=== PATIENT | female | born 1955 | race Two or more races ===

== ENCOUNTER 2020-03-21 09:32 | Outpatient (REF) | payer OTHER, SELFPAY ==
--- NOTE | ~2020-03-21 | XR_ITS ---
EXAMINATION: XR CHEST CLINICAL INFORMATION: Cough COMPARISON: Chest radiographs 04/22/2018, 3-D mammography 10/11/2019 TECHNIQUE: 2 views of the chest were obtained. FINDINGS: The lungs are clear. There is no airspace consolidation or groundglass opacity or effusion. Heart is normal in size. The vascularity is normal. No visible acute bony abnormality. There are surgical clips seen in the breasts similar to the recent mammography. XR/XR chest 2V IMPRESSION: Unremarkable examination.
== END 2020-03-21 09:33 | disposition home or self-care (01) ==
LOC: HO.XRAY 09:32
PROVIDERS: PCP Internal Medicine; Visit Provider Internal Medicine
DX: R05 Cough (principal)
CPT/HCPCS: 71046

== ENCOUNTER 2020-07-30 08:59 | Outpatient (REF) | payer OTHER, SELFPAY ==
[2020-07-30 10:21] LABS: MANUAL DIFF FLAG NO
[2020-07-30 10:37] LABS: Estimated Average Glucose 131 mg/dL; Hemoglobin A1c % 6.2 %
[2020-07-30 10:38] LABS: Cholesterol 206 mg/dL; HDL Cholesterol 40 mg/dL; LDL Cholesterol Calculated 146 mg/dl; Triglycerides 104 mg/dL
[2020-07-30 10:39] LABS: Basophils Absolute Auto 0.1 X10*3/uL (0.0-0.2); Basophils Percent Auto 0.7 % (0-2); Eosinophils Absolute Auto 0.3 X10*3/uL (0.0-0.4); Hematocrit 41.2 % (37-47); Hemoglobin 12.9 g/dl (12.0-16.0); Imm Gran Abs Auto 0.01 X10*3/uL (0.00-0.03); Imm Gran Pct Auto 0.1 % (0.0-0.4); Lymphocytes Absolute Auto 2.4 X10*3/uL (1.2-4.9); Lymphocytes Percent Auto 34.8 % (20-40); Mean Corpuscular HGB Conc 31.3 g/dl (31.0-35.0); Mean Corpuscular Hemoglobin 26.4 pg (27.0-33.0); Mean Corpuscular Volume 84.3 fL (80-98); Mean Platelet Volume 12.9 fL (9.4-12.3); Monocytes Absolute Auto 0.6 X10*3/uL (0.1-1.2); Monocytes Percent Auto 8.8 % (2-11); Neutrophils Absolute Auto 3.5 X10*3/uL (2.0-8.3); Neutrophils Percent Auto 51.6 % (45-73); Platelet Count 200 X10*3/uL (160-400); Red Blood Count 4.89 X10*6/uL (4.20-5.50); Red Cell Distribution Width 14.4 % (11.0-16.0); White Blood Count 6.8 X10*3/uL (4.8-10.8)
[2020-07-30 10:44] LABS: Alanine Aminotransferase 13 U/L (0-31); Albumin Level 4.2 g/dL (3.5-5.0); Alkaline Phosphatase 74 U/L (39-117); Anion Gap 11 (12-20); Aspartate Amino Transferase 22 U/L (5-31); Bilirubin Total 0.4 mg/dL (0.0-1.0); Blood Urea Nitrogen 12 mg/dL (9-16); Calcium 9.5 mg/dL (8.4-10.2); Carbon Dioxide 28 mmol/L (22-29); Chloride 107 mmol/L (96-108); Estimated Glomerular Filt Rate > 60; Glucose Random 103 mg/dL (60-115); Potassium 4.7 mmol/L (3.3-5.1); Sodium 141 mmol/L (135-145); Total Protein 7.7 g/dL (6.5-8.0)
[2020-07-30 10:59] LABS: Thyroid Stimulating Hormone 0.66 uIU/mL (0.32-4.0)
[2020-07-30 11:03] LABS: Free T4 (Free Thyroxine) 1.02 ng/dL (0.71-1.85)
[2020-07-30 11:07] LABS: Vitamin D 25-OH Total 44.4 ng/mL (>30)
[2020-07-30 11:12] LABS: Glucose Urine UA NEG (NEG); Leukocyte Esterase Urine 1+ (NEG); Nitrite Urine NEG (NEG); Specific Gravity - Urine 1.025 (1.005-1.025); Urine Blood TRACE (NEG); Urine Ketones NEG (NEG); Urine Protein NEG (NEG-TRACE)
[2020-07-30 11:18] LABS: Appearance Urine HAZY; Color Urine YELLOW
[2020-07-30 11:59] LABS: Folate 11.2 ng/mL (> or = 4.0); Vitamin B12 455 pg/mL (200-900)
[2020-07-30 12:00] LABS: RBC Urine 0-2 /HPF (0); Squamous Epithelial Cell Urine TRACE /LPF
[2020-07-31 13:37] LABS: CA 27.29 16 U/mL (<38)
== END 2020-07-30 09:00 | disposition home or self-care (01) ==
LOC: HO.LAB 08:59
PROVIDERS: Absent Provider Internal Medicine Medical Oncology; PCP Internal Medicine; Visit Provider Internal Medicine
DX: C50.919 Malignant neoplasm of unspecified site of unspecified female breast (principal); E78.00 Pure hypercholesterolemia, unspecified; R73.02 Impaired glucose tolerance (oral); N39.46 Mixed incontinence; M85.852 Other specified disorders of bone density and structure, left thigh
CPT/HCPCS: 36415; 80053; 80061; 81001; 82306; 82607; 82746; 83036; 84439; 84443; 85025; 86300

== ENCOUNTER 2020-10-11 13:18 | Outpatient (REF) | payer OTHER, SELFPAY ==
--- NOTE | ~2020-10-11 | MM_ITS ---
EXAMINATION: MM SCREENING DIGITAL BREAST TOMOSYNTHESIS, BILATERAL CLINICAL INFORMATION: History bilateral lumpectomies and radiation for breast cancer. Due for yearly. COMPARISON: Mammography: 10/11/2019, 10/05/2018, 09/17/2017, 09/09/2016 TECHNIQUE: Digital breast tomosynthesis is performed in both the craniocaudal and mediolateral oblique views along with computer-aided detection (CAD). Synthesized 2D images are generated from the tomosynthesis. FINDINGS: The breasts are almost entirely fatty (ACR BI-RADS breast composition Category a). There are no significant masses, abnormal calcifications, or other abnormalities. There are post therapy changes with bilateral minor stable scarring and surgical clips medial breasts. There is no developing density. No significant changes. MM/MM tomosynthesis screening BI IMPRESSION: No mammographic evidence of malignancy. ASSESSMENT: BI-RADS 2: Benign RECOMMENDATION: Routine annual mammography screening. This patient's information was entered into a reminder system with a target due date for their next mammogram.
== END 2020-10-11 13:19 | disposition home or self-care (01) ==
LOC: HO.MAMMO 13:18
PROVIDERS: PCP Internal Medicine; Visit Provider Internal Medicine
DX: Z12.31 Encounter for screening mammogram for malignant neoplasm of breast (principal)
CPT/HCPCS: 77063; 77067

== ENCOUNTER 2020-11-19 07:41 | Outpatient (REF) | payer OTHER, SELFPAY ==
[2020-11-19 08:42] LABS: Alanine Aminotransferase 15 U/L (0-31); Albumin Level 4.2 g/dL (3.5-5.0); Alkaline Phosphatase 73 U/L (39-117); Anion Gap 13 (12-20); Aspartate Amino Transferase 22 U/L (5-31); Bilirubin Total 0.5 mg/dL (0.0-1.0); Blood Urea Nitrogen 14 mg/dL (9-16); Calcium 9.7 mg/dL (8.4-10.2); Carbon Dioxide 26 mmol/L (22-29); Chloride 107 mmol/L (96-108); Cholesterol 184 mg/dL; Estimated Glomerular Filt Rate 59; Glucose Random 106 mg/dL (60-115); HDL Cholesterol 37 mg/dL; LDL Cholesterol Calculated 126 mg/dl; Potassium 4.6 mmol/L (3.3-5.1); Sodium 141 mmol/L (135-145); Total Protein 7.6 g/dL (6.5-8.0); Triglycerides 109 mg/dL
[2020-11-19 08:44] LABS: Estimated Average Glucose 128 mg/dL; Hemoglobin A1c % 6.1 %
== END 2020-11-19 07:42 | disposition home or self-care (01) ==
LOC: HO.LAB 07:41
PROVIDERS: PCP Internal Medicine; Visit Provider Internal Medicine
DX: R73.02 Impaired glucose tolerance (oral) (principal); E78.00 Pure hypercholesterolemia, unspecified
CPT/HCPCS: 36415; 80053; 80061; 83036

== ENCOUNTER 2021-02-14 10:57 | Outpatient (REF) | payer OTHER, SELFPAY ==
[2021-02-14 11:48] LABS: Binax Internal Control QC Valid; Binax Now Covid-19 Ag Negative (Negative)
== END 2021-02-14 10:58 | disposition home or self-care (01) ==
LOC: HO.LAB 10:57
PROVIDERS: Visit Provider Internal Medicine
DX: Z20.822 Contact with and (suspected) exposure to COVID-19 (principal)
CPT/HCPCS: 36415; C9803

== ENCOUNTER 2021-05-16 16:20 | Outpatient (REF) | payer OTHER, SELFPAY ==
[2021-05-16 16:33] LABS: MANUAL DIFF FLAG NO
[2021-05-16 17:06] LABS: Basophils Absolute Auto 0.1 X10*3/uL (0.0-0.2); Basophils Percent Auto 0.7 % (0-2); Eosinophils Absolute Auto 0.3 X10*3/uL (0.0-0.4); Eosinophils Percent Auto 3.9 % (0-4); Hematocrit 40.3 % (37.0-47.0); Hemoglobin 12.7 g/dl (12.0-16.0); Imm Gran Abs Auto 0.02 X10*3/uL (0.00-0.03); Imm Gran Pct Auto 0.2 % (0.0-0.4); Lymphocytes Absolute Auto 3.1 X10*3/uL (1.2-4.9); Mean Corpuscular HGB Conc 31.5 g/dl (31.0-35.0); Mean Corpuscular Hemoglobin 26.5 pg (27.0-33.0); Mean Platelet Volume 12.1 fL (9.4-12.3); Monocytes Absolute Auto 0.6 X10*3/uL (0.1-1.2); Monocytes Percent Auto 7.2 % (2-11); Neutrophils Absolute Auto 4.4 x10*3/uL (2.0-8.3); Platelet Count 217 X10*3/uL (160-400); Red Cell Distribution Width 14.7 % (11.0-16.0); White Blood Count 8.5 X10*3/uL (4.8-10.8)
[2021-05-16 17:11] LABS: Appearance Urine CLEAR; Color Urine YELLOW; Glucose Urine UA NEG (NEG); Leukocyte Esterase Urine 2+ (NEG); Nitrite Urine NEG (NEG); Urine Blood TRACE (NEG); Urine Ketones NEG (NEG); Urine Protein NEG (NEG-TRACE)
[2021-05-16 17:20] LABS: Estimated Average Glucose 126 mg/dL
[2021-05-16 17:25] LABS: Alanine Aminotransferase 19 U/L (0-31); Albumin Level 4.3 g/dL (3.5-5.0); Alkaline Phosphatase 80 U/L (39-117); Anion Gap 12 (12-20); Aspartate Amino Transferase 25 U/L (5-31); Bilirubin Total 0.3 mg/dL (0.0-1.0); Blood Urea Nitrogen 17 mg/dL (9-16); Calcium 9.6 mg/dL (8.4-10.2); Carbon Dioxide 28 mmol/L (22-29); Chloride 105 mmol/L (96-108); Estimated Glomerular Filt Rate > 60; Glucose Random 93 mg/dL (60-115); Potassium 4.2 mmol/L (3.3-5.1); Sodium 141 mmol/L (135-145); Total Protein 7.9 g/dL (6.5-8.0)
[2021-05-16 17:50] LABS: Erythrocyte Sedimentation Rate 17 MM/HR (0-20)
[2021-05-16 18:15] LABS: Bacteria Urine 1+ /LPF; Urine Talc Crystals 4+ /LPF
[2021-05-20 10:01] LABS: CRP High Sensitivity 2.2 mg/L
== END 2021-05-16 16:21 | disposition home or self-care (01) ==
LOC: HO.LAB 16:20
PROVIDERS: PCP Internal Medicine; Visit Provider Internal Medicine
DX: R51.9 Headache, unspecified (principal)
CPT/HCPCS: 36415; 80053; 81001; 83036; 84443; 85025; 85652; 86141

== ENCOUNTER 2021-07-08 14:55 | Outpatient (REF) | payer OTHER, SELFPAY ==
[2021-07-08 15:22] LABS: IDNOW Serial# 16C4AD1C
[2021-07-08 15:23] LABS: COVID-19 Test Positive (Negative)
== END 2021-07-08 14:56 | disposition home or self-care (01) ==
LOC: HO.LAB 14:55
PROVIDERS: Visit Provider Internal Medicine
DX: Z20.822 Contact with and (suspected) exposure to COVID-19 (principal)
CPT/HCPCS: 87635; C9803

== ENCOUNTER 2021-08-29 10:13 | Outpatient (REF) | payer OTHER, SELFPAY ==
[2021-08-29 11:13] LABS: Appearance Urine CLEAR; Color Urine YELLOW; Glucose Urine UA NEG (NEG); Leukocyte Esterase Urine NEG (NEG); Nitrite Urine NEG (NEG); PH 5.5 (5.0-8.0); Specific Gravity - Urine 1.025 (1.005-1.025); UACC Culture Trigger NO; Urine Blood TRACE (NEG); Urine Ketones NEG (NEG); Urine Protein NEG (NEG-TRACE)
[2021-08-29 12:03] LABS: Hyaline Casts Urine 0-2 /LPF; RBC Urine 0 /HPF (0); WBC Urine 0-2 /HPF (0-4)
== END 2021-08-29 10:14 | disposition home or self-care (01) ==
LOC: HO.LAB 10:13
PROVIDERS: PCP Internal Medicine; Visit Provider Internal Medicine
DX: N39.0 Urinary tract infection, site not specified (principal)
CPT/HCPCS: 81001

== ENCOUNTER 2021-09-11 08:12 | Outpatient (REF) | payer OTHER, MEDICARE, SELFPAY ==
[2021-09-11 08:54] LABS: COVID-19 Test Negative (Negative)
== END 2021-09-11 08:13 | disposition home or self-care (01) ==
LOC: HO.LAB 08:12
PROVIDERS: Visit Provider Internal Medicine
DX: Z20.822 Contact with and (suspected) exposure to COVID-19 (principal)
CPT/HCPCS: 87635; C9803

== ENCOUNTER 2021-10-14 08:23 | Outpatient (REF) | payer OTHER, MEDICARE, SELFPAY ==
--- NOTE | ~2021-10-14 | MM_ITS ---
EXAMINATION: BONE DENSITOMETRY CLINICAL INDICATION: Osteoporosis. COMPARISON: Previous BD dated 10/11/2019 and baseline BD dated 07/29/2007. TECHNIQUE: Using a [employer] DXA System (software version: 13.1) manufactured by [employer], dual-energy x-ray absorptiometry was performed of the lumbar spine and left hip. The images are of good technical quality. Summary results are attached. FINDINGS: AP SPINE L1-L4: Current: BMD 0.839 g/cm2, Z-score -0.9, T-score -2.8, osteoporosis, 7.5% decrease from previous, 23.1% decrease from baseline (<5% change is not significant). Prior: BMD 0.907 g/cm2. Baseline: BMD 1.091 g/cm2. LEFT FEMUR, NECK: Current: BMD 0.734 g/cm2, Z-score -0.5, T-score -2.2, osteopenia. Prior: BMD 0.725 g/cm2. Baseline: BMD 0.898 g/cm2. LEFT FEMUR, TOTAL: Current: BMD 0.736 g/cm2, Z-score -0.7, T-score -2.2, osteopenia, 0.7% decrease from previous, 19.8% decrease from baseline (<5% change is not significant). Prior: BMD 0.741 g/cm2. Baseline: BMD 0.918 g/cm2. IDENTIFIED RISK FACTORS: Menopause, family history (parent hip fracture). HISTORY OF FRACTURE: None listed. MEDICATIONS: None listed. MM/XR DEXA axial skeleton IMPRESSION: 1. DIAGNOSIS: Osteoporosis based on the lowest T-score value of -2.8 in the lumbar spine applying World Health Organization criteria. 2. 10-YEAR FRACTURE RISK PREDICTION, FRAX: According to the guidelines, FRAX calculation should only be performed on patients in the osteopenia bone density category. Therefore, FRAX was not performed on this patient. 3. Treatment Recommendations: NOF guidelines recommend consideration for treatment in postmenopausal women and men age 50 and older presenting with the following: -A hip or vertebral (clinical or morphometric) fracture. -T-score less than or equal to -2.5 at the femoral neck or spine after appropriate evaluation to exclude secondary causes. -Low bone mass at the hip or spine and a 10-year fracture probability by FRAX of greater than or equal to 3% for hip fracture or greater than or equal to 20% for major osteoporotic fracture based on the [place] adapted WHO algorithm. 4. Other Recommendations: All treatment decisions require clinical judgment and consideration of individual patient factors, including patient preferences, comorbidities, previous drug use, risk factors not captured in the FRAX model (e.g. frailty, falls, vitamin D deficiency, increased bone turnover, interval significant decline in bone density) and possible under or overestimation of fracture risk by FRAX. Additional medical evaluation for secondary cause of low bone mineral density may be appropriate. FUTURE SCAN RECOMMENDATION: People with diagnosed cases of osteoporosis or at high risk for fracture should have regular bone mineral density tests. For patients eligible for Medicare, routine testing is allowed once every 2 years. The testing frequency can be increased to one year for patients who have rapidly progressing disease, those who are receiving or discontinuing medical therapy to restore bone mass, or have additional risk factors.
--- NOTE | ~2021-10-14 | MM_ITS ---
EXAMINATION: MM SCREENING DIGITAL BREAST TOMOSYNTHESIS, BILATERAL CLINICAL INFORMATION: Screening. Asymptomatic. Personal history bilateral lumpectomies and radiation for breast cancer. COMPARISON: Mammography: 10/28/2020, 10/29/2019, 10/05/2018 TECHNIQUE: Digital breast tomosynthesis is performed in both the craniocaudal and mediolateral oblique views along with computer-aided detection (CAD). Synthesized 2D images are generated from the tomosynthesis. Additional right MLO view is provided. FINDINGS: There are scattered areas of fibroglandular density (ACR BI-RADS breast composition Category b). Parenchymal pattern is similar to prior studies. There is bilateral postsurgical changes with surgical clips and minor scarring similar to prior exam. Small circumscribed nodule again seen anterior outer right breast. There is no interval mass or developing density or interval architectural abnormality. No abnormal calcifications. There is a dermal overlying the upper right breast. No significant changes from prior studies. MM/MM tomosynthesis screening BI IMPRESSION: -No mammographic evidence of malignancy. -Bilateral post surgical changes. ASSESSMENT: BI-RADS 2: Benign RECOMMENDATION: Routine annual mammography screening. This patient's information was entered into a reminder system with a target due date for their next mammogram.
== END 2021-10-14 08:24 | disposition home or self-care (01) ==
LOC: HO.MAMMO 08:23
PROVIDERS: PCP Internal Medicine; Visit Provider Internal Medicine
DX: Z12.31 Encounter for screening mammogram for malignant neoplasm of breast (principal); Z13.820 Encounter for screening for osteoporosis; M81.0 Age-related osteoporosis without current pathological fracture; Z78.0 Asymptomatic menopausal state
CPT/HCPCS: 77063; 77067; 77080

== ENCOUNTER 2021-10-30 12:08 | Outpatient (REF) | payer OTHER, MEDICARE, SELFPAY ==
[2021-10-30 13:31] LABS: COVID-19 Test Negative (Negative)
== END 2021-10-30 12:09 | disposition home or self-care (01) ==
LOC: HO.LAB 12:08
PROVIDERS: Visit Provider Internal Medicine
DX: Z20.822 Contact with and (suspected) exposure to COVID-19 (principal)
CPT/HCPCS: 87635; C9803

== ENCOUNTER 2021-11-25 08:15 | Outpatient (REF) | payer MEDICARE, SELFPAY ==
--- NOTE | ~2021-11-25 | XR_ITS ---
EXAMINATION: XR CHEST CLINICAL INFORMATION: Covid infection COMPARISON: Previous chest x-ray March 2020 TECHNIQUE: 2 views of the chest were obtained. FINDINGS: No significant abnormality is noted involving the heart, lungs, mediastinum, bony thorax or soft tissues. XR/XR chest 2V IMPRESSION: Unremarkable examination.
== END 2021-11-25 08:16 | disposition home or self-care (01) ==
LOC: HO.XRAY 08:15
PROVIDERS: PCP Internal Medicine; Visit Provider Internal Medicine
DX: U07.1 COVID-19 (principal)
CPT/HCPCS: 71046

== ENCOUNTER 2022-01-22 08:23 | Outpatient (REF) | payer MEDICARE, SELFPAY ==
[2022-01-22 08:39] LABS: MANUAL DIFF FLAG NO
[2022-01-22 09:18] LABS: Basophils Absolute Auto 0.1 X10*3/uL (0.0-0.2); Basophils Percent Auto 0.9 % (0-2); Eosinophils Absolute Auto 0.3 X10*3/uL (0.0-0.4); Eosinophils Percent Auto 4.8 % (0-4); Hematocrit 39.5 % (37.0-47.0); Hemoglobin 12.6 g/dl (12.0-16.0); Imm Gran Abs Auto 0.01 X10*3/uL (0.00-0.03); Imm Gran Pct Auto 0.2 % (0.0-0.4); Lymphocytes Absolute Auto 2.5 X10*3/uL (1.2-4.9); Lymphocytes Percent Auto 38.1 % (20-40); Mean Corpuscular HGB Conc 31.9 g/dl (31.0-35.0); Mean Corpuscular Hemoglobin 26.7 pg (27.0-33.0); Mean Corpuscular Volume 83.7 fL (80.0-98.0); Mean Platelet Volume 12.3 fL (9.4-12.3); Monocytes Absolute Auto 0.6 X10*3/uL (0.1-1.2); Monocytes Percent Auto 8.6 % (2-11); Neutrophils Absolute Auto 3.1 x10*3/uL (2.0-8.3); Neutrophils Percent Auto 47.4 % (45-73); Platelet Count 212 X10*3/uL (160-400); Red Blood Count 4.72 X10*6/uL (4.20-5.50); Red Cell Distribution Width 14.1 % (11.0-16.0); White Blood Count 6.6 X10*3/uL (4.8-10.8)
[2022-01-22 09:18] LABS: Appearance Urine Clear; Color Urine Yellow; Glucose Urine UA Negative (Negative); Leukocyte Esterase Urine Moderate (2+) (Negative); Nitrite Urine Negative (Negative); PH 5.5 (5.0-9.0); UMIC TRIGGER UA YES; Urine Blood Small (1+) (Negative); Urine Ketones Negative (Negative); Urine Protein Negative (Neg-Trace)
[2022-01-22 09:31] LABS: Bacteria Urine None Seen (None Seen); Hyaline Casts Urine 0-2 /LPF (0-2); RBC Urine 0-2 /HPF (0-2); Squamous Epithelial Cell Urine 0-2 /HPF (0-2); WBC Urine 21-50 /HPF (0-5)
[2022-01-22 10:13] LABS: Alanine Aminotransferase 19 U/L (0-31); Albumin Level 4.1 g/dL (3.5-5.0); Alkaline Phosphatase 75 U/L (39-117); Anion Gap 14 (12-20); Aspartate Amino Transferase 25 U/L (5-31); Bilirubin Total 0.5 mg/dL (0.0-1.0); Blood Urea Nitrogen 16 mg/dL (9-16); Calcium 9.3 mg/dL (8.4-10.2); Chloride 107 mmol/L (96-108); Cholesterol 188 mg/dL; Estimated Glomerular Filt Rate > 60; Free T4 (Free Thyroxine) 1.03 ng/dL (0.71-1.85); Glucose Random 108 mg/dL (60-115); HDL Cholesterol 42 mg/dL; LDL Cholesterol Calculated 128 mg/dl; Potassium 4.5 mmol/L (3.3-5.1); Sodium 140 mmol/L (135-145); Thyroid Stimulating Hormone 1.12 uIU/mL (0.32-4.0); Total Protein 7.3 g/dL (6.5-8.0); Triglycerides 93 mg/dL; Vitamin D 25-OH Total 42.9 ng/mL (>30)
[2022-01-22 10:20] LABS: Folate 13.3 ng/mL (> or = 4.0); Vitamin B12 362 pg/mL (200-900)
[2022-01-22 10:28] LABS: Carbon Dioxide 24 mmol/L (22-29)
== END 2022-01-22 08:24 | disposition home or self-care (01) ==
LOC: HO.LAB 08:23
PROVIDERS: PCP Internal Medicine; Visit Provider Internal Medicine
DX: K21.9 Gastro-esophageal reflux disease without esophagitis (principal); E78.00 Pure hypercholesterolemia, unspecified
CPT/HCPCS: 36415; 80053; 80061; 81001; 82306; 82607; 82746; 84439; 84443; 85025

== ENCOUNTER 2022-03-23 08:52 | Outpatient (REF) | payer MEDICARE, SELFPAY ==
[2022-03-23 16:06] LABS: Urine Cytology See Pathology rpt
== END 2022-03-23 08:53 | disposition home or self-care (01) ==
LOC: HO.LAB 08:52
PROVIDERS: PCP Internal Medicine; Visit Provider Nurse Practitioner Family
DX: N30.20 Other chronic cystitis without hematuria (principal); N95.2 Postmenopausal atrophic vaginitis; Z79.899 Other long term (current) drug therapy
CPT/HCPCS: 51798; 87086; 88112; 99202

== ENCOUNTER 2022-05-11 09:45 | Outpatient (REF) | payer MEDICARE, SELFPAY ==
--- NOTE | ~2022-05-11 | US_ITS ---
EXAMINATION: US RETROPERITONEAL COMPLETE (RENAL) CLINICAL INFORMATION: Urinary tract infection, site not specified. COMPARISON: Previous renal ultrasound January 2008 TECHNIQUE: Real-time imaging of the kidneys and bladder. FINDINGS: RIGHT KIDNEY: 10.2 x 4.1 x 4.6 cm (SAG x AP x TRV). The kidney is normal in size, contour, and echogenicity. Renal cortical thickness is normal. Small 2 mm stone in the midpole. No focal parenchymal lesions or hydronephrosis. LEFT KIDNEY: 10.7 x 4.8 x 3.5 cm (SAG x AP x TRV). The kidney is normal in size, contour, and echogenicity. Renal cortical thickness is normal. No calculi or focal parenchymal lesions. No hydronephrosis. BLADDER: Well distended and normal. Bilateral ureteral jets are demonstrated. Prevoid bladder volume is 418 mL. Postvoid bladder volume is 29.1 mL. US/US retroperitoneal comp IMPRESSION: Small right renal stone.
== END 2022-05-11 09:46 | disposition home or self-care (01) ==
LOC: HO.US 09:45
PROVIDERS: PCP Internal Medicine; Visit Provider Nurse Practitioner Family
DX: N39.0 Urinary tract infection, site not specified (principal)
CPT/HCPCS: 76770

== ENCOUNTER → 2022-05-21 08:50 | Outpatient (BNVA) | payer MEDICARE, SELFPAY | PROVIDERS: PCP Internal Medicine; Visit Provider Nurse Practitioner Family | DX: N39.0 Urinary tract infection, site not specified (principal) | CPT/HCPCS: 51798; 99212 ==

== ENCOUNTER 2022-08-24 12:20 | Outpatient (AMB) | payer MEDICARE, SELFPAY ==
[2022-08-24 12:31] VITALS: BP 108/70; PULSE 68; O2SAT 99; BMI 21.9
--- NOTE | 2022-08-24 12:31 | MHC.PC.OV ---
Vital Signs 08/24/22 12:31 Height 5 ft 2 in Weight 120 lb BMI 21.9 BP 108/70 Blood Pressure Location Lt brachial Position Sitting Pulse 68 Pulse Source Pulse Oximeter Temp Source Skin Pulse Oximetry (%) 99 Oxygen Delivery Method Room Air Intake Visit Reasons: Annual Exam Intake Note: Patient is here today for a physical. House Calls Nurse Required: No Allergies amoxicillin [AMOXICILLIN] Allergy (Intermediate, Verified 08/24/22 12:32) RASH penicillin V Allergy (Intermediate, Verified 08/24/22 12:32) rash Penicillins [PENICILLINS] Allergy (Intermediate, Verified 08/24/22 12:32) RASH Sulfa (Sulfonamide Antibiotics) [SULFA(SULFONAMIDE ANTIBIOTICS)] Allergy (Intermediate, Verified 08/24/22 12:32) RASH simvastatin [SIMVASTATIN] Allergy (Unknown, Verified 08/24/22 12:32) DIZZINESS sulfamethoxazole [From BACTRIM] Allergy (Unknown, Verified 08/24/22 12:32) RASH trimethoprim [From BACTRIM] Allergy (Unknown, Verified 08/24/22 12:32) RASH Medication List - Last Reconciled 08/24/22 by Andriy Nazario MD albuterol sulfate 90 mcg/actuation 2 puffs PO Q4H PRN Tobacco use date assessed: 08/24/22 Fall risk assessment: No Falls in past year Last assessed Fall Risk: 08/24/22 Dental Screening Dental Screen Date: 08/24/22 Did you have a dental visit in the last 12 months?: Yes Did you have a dental problem in the last 6 months where you did not have access to dental care?: No Was dental information given to patient?: Patient has dentist HPI Annual Exam HPI Details 67-year-old female with history of breast cancer asthma hypercholesterolemia generalized anxiety disorder GERD and osteoporosis last seen in November 2021. Patient is here for physical exam mammogram is due in October, bone density is up-to-date colonoscopy is up-to-date patient has followed up with urology for the recurrent UTI on female hormone cream noted on workup having a right renal calculi. 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 Father No problems noted. Sister Lymphoma Sister Dementia Sister Substance abuse Social History Housing: House Alcohol intake: never Patient Tobacco Use Status: Never used Tobacco e-Cigarette/Vaping Use: Never Used Second Hand Smoke Exposure: No service: No Current occupational status: retired Cognitive needs: No Hearing needs: No Vision needs: Yes Questionnaire PHQ-9 Over the last 2 weeks, how often have you been bothered by any of the following problems? 1. Little interest or pleasure in doing things: not at all 2. Feeling down, depressed, or hopeless: not at all 3. Trouble falling or staying asleep, or sleeping too much: not at all 4. Feeling tired or having little energy: not at all 5. Poor appetite or overeating: not at all 6. Feeling bad about yourself - or that you are a failure or have let yourself or your family down: not at all 7. Trouble concentrating on things, such as reading the newspaper or watching television: not at all 8. Moving or speaking so slowly that other people could have noticed. Or the opposite - being so fidgety or restless that you have been moving around a lot more than usual: not at all 9. Thoughts that you would be better off or of hurting yourself in some way: not at all Total score: 0 Source: Developed by Drs. Donn Storm, Génesis Edwards, Petros Woodard and colleagues, with an educational regla from [employer]. Thrive Questionnaire Date Thrive assessed: 08/20/21 AUDIT C Alcohol Use Questionnaire (AUDIT-C) 1. How often do you have a drink containing alcohol?: Never 2. How many drinks containing alcohol do you have on a typical day when you are drinking?: 1 or 2 (0) 3. How often do you have six or more drinks on one occasion?: Never Total Score: 0 EDY-7 AMB Questionnaire EDY-7 Date EDY - 7 assessed: 08/24/22 Feeling nervous, anxious, or on edge: 0 = Not at all Not being able to stop or control worryin = Not at all Worrying too much about different things: 0 = Not at all Trouble relaxin = Not at all Being so restless that it is hard to sit still: 0 = Not at all Becoming easily annoyed or irritable: 0 = Not at all Feeling afraid as if something awful might happen: 0 = Not at all Total EDY-7 score (0-4 normal; 5-9 mild; 10-14 moderate; 15-21 severe): 0 Source: Developed by Drs. Donn Storm, Génesis Edwards, Petros Woodard and colleagues, with an educational regla from [employer]. Review of Systems Const Denies poor appetite and Denies weakness Eyes Denies no additional complaints ENT Reports Normal hearing present, Denies dizziness, Denies nasal congestion, Denies tinnitus and Denies sore throat Card Denies chest pain, Denies syncope, Denies rapid heart rate and Denies dyspnea Resp Denies cough and Denies dyspnea GI Denies change in stool character, Reports constipation, Denies diarrhea, Denies nausea and Denies vomiting Denies urinary frequency, Denies difficulty voiding and Denies dysuria Neuro Reports Normal hearing present, Denies confusion, Denies dizziness, Denies syncope and Denies weakness Psych Denies confusion Physical exam (Primary Care) Vital Signs: Last Vital Signs Pulse 68 08/24/22 12:31 BP 108/70 08/24/22 12:31 Pulse Ox 99 08/24/22 12:31 Oxygen Delivery Method Room Air 08/24/22 12:31 BMI result Body Mass Index 21.9 Tobacco/Smoking Status: Tobacco use Status Tobacco use date assessed 08/24/22 08/24/22 12:33 Patient Tobacco Use Status Never used Tobacco 08/24/22 12:33 e-Cigarette/Vaping Use Never Used 08/24/22 12:33 PHQ-9: PHQ-9 Score PHQ-9: Total score 0 08/24/22 12:33 Thrive Assessment: Date of Thrive Assessment Date Thrive assessed 08/20/21 08/24/22 12:33 Const General: No confusion Orientation/consciousness: No confusion HENMT Head: Yes normocephalic Ears: external ears normal and TM's normal bilaterally Face and sinus: Yes normal facial exam Mouth: moist mucous membranes Throat: Yes tonsils normal Eyes Conjunctivae: conjunctivae normal Pupils: Equal, round and reactive pupils present and Pupil accommodation reflex normal Direct Ophthalmoscopy: normal light reflex Neck Neck: No lymphadenopathy Thyroid: Thyroid normal Chest Chest palpation & inspection: normal inspection of the chest Resp Effort & Inspection: normal respiratory effort and no audible wheezes Auscultation: clear to auscultation bilaterally, no crackles, no wheezes and lung sounds not diminished Cardio Rate: regular rate Rhythm: regular rhythm Peripheral pulses: radial pulses present and dorsalis pedis present GI Palpation (GI): no masses Auscultation: normal bowel sounds and normoactive bowel sounds Rectal Exam - Female: deferred Skin General skin exam: no rashes or lesions noted Rashes: no rashes Neuro General: No confusion Cranial nerves: Yes Equal, round and reactive pupils present and Yes Normal hearing present Cognition (Neuro): normal cognition Gait exam (Neuro): Normal gait present Motor exam (neuro): 5/5 motor strength present throughout Deep tendon reflexes (DTR's): Right brachioradialis reflex intensity grade: 2+, Left brachioradialis reflex intensity grade: 2+, Right patellar reflex intensity grade: 2+ and Left patellar reflex intensity grade: 2+ Extrem General: No edema Assessment and Plan Assessment & Plan (1) Annual physical exam: Code(s): Z00.00 - Encounter for general adult medical examination without abnormal findings (2) Age-related osteoporosis without current pathological fracture: Comment: October 2021 Code(s): M81.0 - Age-related osteoporosis without current pathological fracture Plan: October 2021 discussed about calcium and vitamin-D (3) GERD (gastroesophageal reflux disease): Code(s): K21.9 - Gastro-esophageal reflux disease without esophagitis Qualifiers: Esophagitis presence: without esophagitis Qualified Code(s): K21.9 - Gastro-esophageal reflux disease without esophagitis Plan: Avoid the foods that causes that usually spicy foods, tomato products, juices, coffee, soda and foods that your sensitive to. After eating do not lie down, allow 3-4 hours before in lie down. And keep the head of bed above 30 degrees to avoid the acid from going up. (4) Hypercholesterolemia: Code(s): E78.00 - Pure hypercholesterolemia, unspecified Plan: Avoid fried foods, chicken skin, eggs, butter margarine, pastries and meat. Be it pork or beef they have a lot of cholesterol LDL goal of less than 130 and triglyceride of less than 150 (5) Asthma: Code(s): J45.909 - Unspecified asthma, uncomplicated Qualifiers: Asthma complication type: uncomplicated Asthma persistence: intermittent Asthma severity: mild Qualified Code(s): J45.20 - Mild intermittent asthma, uncomplicated Plan: Continue with inhaler as needed (6) Impaired glucose tolerance: Code(s): R73.02 - Impaired glucose tolerance (oral) Plan: Decrease the amount of carbohydrate intake, pasta, bread, rice and potatoes are all sugar and that is aside from all the sweet stuff, remember that fruits are good but they are Sweet also. (7) Breast cancer: Comment: DCIS breast [address] stein mammogram October 2021 Code(s): C50.919 - Malignant neoplasm of unspecified site of unspecified female breast Qualifiers: Breast location: unspecified site of breast Estrogen receptor status: unspecified Laterality: bilateral Patient sex: female Qualified Code(s): C50.911 - Malignant neoplasm of unspecified site of right female breast; C50.912 - Malignant neoplasm of unspecified site of left female breast Plan: Patient is up-to-date with mammogram October 2021 (8) Generalized anxiety disorder: Code(s): F41.1 - Generalized anxiety disorder Plan: Stable Orders: Orders Vitamin B12 and Folate Today R73.02 - Impaired glucose tolerance (oral) Comprehensive Met. Panel Today R73.02 - Impaired glucose tolerance (oral) Hemoglobin A1c Today R73.02 - Impaired glucose tolerance (oral) Lipid Panel Today E78.00 - Pure hypercholesterolemia, unspecified, R73.02 - Impaired glucose tolerance (oral) Free T4 (Free Thyroxine) Today R73.02 - Impaired glucose tolerance (oral) Thyroid Stimulating Hormone Today R73.02 - Impaired glucose tolerance (oral) Vitamin D 25-OH Total Today R73.02 - Impaired glucose tolerance (oral) Complete Blood Count Auto Diff Today R73.02 - Impaired glucose tolerance (oral) Coding Level of Care Code Est Pt Prev Care >65y(21859) Diagnoses Annual physical exam Z00.00 Age-related osteoporosis without current pathological fracture M81.0 GERD (gastroesophageal reflux disease) K21.9 Esophagitis presence: without esophagitis Hypercholesterolemia E78.00 Asthma J45.20 Asthma complication type: uncomplicated Asthma persistence: intermittent Asthma severity: mild Impaired glucose tolerance R73.02 Breast cancer C50.911; C50.912 Breast location: unspecified site of breast Estrogen receptor status: unspecified Laterality: bilateral Patient sex: female Generalized anxiety disorder F41.1
== END 2022-08-24 13:00 | disposition home or self-care (01) ==
PROVIDERS: Visit Provider Internal Medicine
DX: Z00.00 Encounter for general adult medical examination without abnormal findings (principal); K21.9 Gastro-esophageal reflux disease without esophagitis; J45.20 Mild intermittent asthma, uncomplicated; C50.911 Malignant neoplasm of unspecified site of right female breast; C50.912 Malignant neoplasm of unspecified site of left female breast; M81.0 Age-related osteoporosis without current pathological fracture; E78.00 Pure hypercholesterolemia, unspecified; R73.02 Impaired glucose tolerance (oral); F41.1 Generalized anxiety disorder
CPT/HCPCS: 99397

== ENCOUNTER 2022-10-02 08:56 | Outpatient (REF) | payer MEDICARE, SELFPAY ==
[2022-10-02 09:07] LABS: MANUAL DIFF FLAG NO
[2022-10-02 10:03] LABS: Basophils Absolute Auto 0.1 X10*3/uL (0.0-0.2); Basophils Percent Auto 1.1 % (0-2); Eosinophils Absolute Auto 0.3 X10*3/uL (0.0-0.4); Eosinophils Percent Auto 4.1 % (0-4); Hematocrit 40.5 % (37.0-47.0); Hemoglobin 12.6 g/dl (12.0-16.0); Imm Gran Abs Auto 0.01 X10*3/uL (0.00-0.03); Imm Gran Pct Auto 0.1 % (0.0-0.4); Lymphocytes Absolute Auto 2.4 X10*3/uL (1.2-4.9); Lymphocytes Percent Auto 33.3 % (20-40); Mean Corpuscular HGB Conc 31.1 g/dl (31.0-35.0); Mean Corpuscular Hemoglobin 26.1 pg (27.0-33.0); Mean Corpuscular Volume 83.9 fL (80.0-98.0); Mean Platelet Volume 12.5 fL (9.4-12.3); Monocytes Absolute Auto 0.6 X10*3/uL (0.1-1.2); Monocytes Percent Auto 8.3 % (2-11); Neutrophils Absolute Auto 3.8 x10*3/uL (2.0-8.3); Neutrophils Percent Auto 53.1 % (45-73); Platelet Count 259 X10*3/uL (160-400); Red Blood Count 4.83 X10*6/uL (4.20-5.50); Red Cell Distribution Width 14.4 % (11.0-16.0); White Blood Count 7.1 X10*3/uL (4.8-10.8)
[2022-10-02 11:02] LABS: Estimated Average Glucose 126 mg/dL
[2022-10-02 11:09] LABS: Alanine Aminotransferase 17 U/L (0-31); Albumin Level 4.1 g/dL (3.5-5.0); Alkaline Phosphatase 66 U/L (39-117); Anion Gap 13 (12-20); Aspartate Amino Transferase 25 U/L (5-31); Bilirubin Total 0.6 mg/dL (0.0-1.0); Blood Urea Nitrogen 15 mg/dL (9-16); Calcium 9.4 mg/dL (8.4-10.2); Carbon Dioxide 25 mmol/L (22-29); Chloride 108 mmol/L (96-108); Cholesterol 202 mg/dL (<200); Estimated Glomerular Filt Rate 55; Glucose Random 105 mg/dL (60-115); HDL Cholesterol 43 mg/dL (>40); LDL Cholesterol Calculated 141 mg/dL (<100); Potassium 3.9 mmol/L (3.3-5.1); Sodium 142 mmol/L (135-145); Triglycerides 94 mg/dL (<150)
[2022-10-02 11:28] LABS: Free T4 (Free Thyroxine) 1.03 ng/dL (0.71-1.85); Thyroid Stimulating Hormone 1.29 uIU/mL (0.32-4.0); Vitamin D 25-OH Total 49.9 ng/mL (>30)
[2022-10-02 11:32] LABS: Folate 13.4 ng/mL (> or = 4.0); Vitamin B12 471 pg/mL (200-900)
== END 2022-10-02 08:57 | disposition home or self-care (01) ==
LOC: HO.LAB 08:56
PROVIDERS: PCP Internal Medicine; Visit Provider Internal Medicine
DX: R73.02 Impaired glucose tolerance (oral) (principal); E78.00 Pure hypercholesterolemia, unspecified; M81.0 Age-related osteoporosis without current pathological fracture
CPT/HCPCS: 36415; 80053; 80061; 82306; 82607; 82746; 83036; 84439; 84443; 85025

== ENCOUNTER 2022-10-20 08:45 | Outpatient (REF) | payer MEDICARE, SELFPAY ==
--- NOTE | ~2022-10-20 | MM_ITS ---
EXAMINATION: MM SCREENING DIGITAL BREAST TOMOSYNTHESIS, BILATERAL CLINICAL INFORMATION: Screening. Asymptomatic. The patient has a history of bilateral breast surgery for cancer. COMPARISON: Mammography: This study is compared with prior exams dating back to 2017. TECHNIQUE: Digital breast tomosynthesis is performed in both the craniocaudal and mediolateral oblique views along with computer-aided detection (CAD). Synthesized 2D images are generated from the tomosynthesis. FINDINGS: The breasts are almost entirely fatty (ACR BI-RADS breast composition Category a). There are no significant masses, abnormal calcifications, or other abnormalities. There are postsurgical changes in the retroareolar regions of each breast. MM/MM tomosynthesis screening BI IMPRESSION: No mammographic evidence of malignancy. ASSESSMENT: BI-RADS BI-RADS 2 - Benign Findings RECOMMENDATION: Routine annual mammography screening. 1 year F/U This examination should not preclude the clinical evaluation of a suspicious palpable abnormality. This patient's information was entered into a reminder system with a target due date for their next mammogram.
== END 2022-10-20 08:46 | disposition home or self-care (01) ==
LOC: HO.MAMMO 08:45
PROVIDERS: PCP Internal Medicine; Visit Provider Internal Medicine
DX: Z12.31 Encounter for screening mammogram for malignant neoplasm of breast (principal)
CPT/HCPCS: 77063; 77067

== ENCOUNTER → 2022-10-20 09:00 | Outpatient (BNV) | payer MEDICARE, SELFPAY | PROVIDERS: PCP Internal Medicine; Visit Provider Radiology Diagnostic Radiology | DX: Z12.31 Encounter for screening mammogram for malignant neoplasm of breast (principal) | CPT/HCPCS: 77063; 77067 ==

== ENCOUNTER 2022-12-07 10:44 | Outpatient (AMB) | payer MEDICARE, SELFPAY ==
--- NOTE | 2022-12-07 10:49 | A.OFFVIS_ITS ---
Intake Intake Visit Reasons: 6m/PVR Intake Note: Patient is present for 6 month follow-up for PVR: Urology Medications: estrace cream (pt never picked up) Blood Thinner: none PVR: 0 mL Forcer Maker Required: No Accompanied by: Self / Same As Patient Allergies amoxicillin [AMOXICILLIN] Allergy (Intermediate, Verified 12/07/22 18:08) RASH penicillin V Allergy (Intermediate, Verified 12/07/22 18:08) rash Penicillins [PENICILLINS] Allergy (Intermediate, Verified 12/07/22 18:08) RASH Sulfa (Sulfonamide Antibiotics) [SULFA(SULFONAMIDE ANTIBIOTICS)] Allergy (Intermediate, Verified 12/07/22 18:08) RASH simvastatin [SIMVASTATIN] Allergy (Unknown, Verified 12/07/22 18:08) DIZZINESS sulfamethoxazole [From BACTRIM] Allergy (Unknown, Verified 12/07/22 18:08) RASH trimethoprim [From BACTRIM] Allergy (Unknown, Verified 12/07/22 18:08) RASH Medication List - Last Reconciled 12/07/22 by SELVIN Antony albuterol sulfate 90 mcg/actuation 2 puffs PO Q4H PRN HPI HPI Comments History of Present Illness Details Berta is a pleasant 67-year-old female patient of Dr. Nazario. She has a past medical history of osteopenia, hypercholesteremia, atrophic vaginitis, GERD, breast cancer with a lumpectomy in 2004, and asthma. She presents to the office today for a follow up of her recurrent urinary tract infections. When asked patient reports to be doing and feeling well. She reports since her last office visit here she has had no UTI like symptoms. She denies any bothersome urinary issues or concerns at this time. In office urinalysis results reviewed with the patient today. PVR 0 mL. Previous workup has included a retroperitoneal ultrasound noting right kidney with small 2 mm stone in the mid pole. No lesions or hydronephrosis noted. Left kidney with no calculi, lesions, and or hydronephrosis noted. The bladder is well distended and normal. Bilateral ureteral jets are demonstrated. Pre void bladder volume is 418 mL. Postvoid bladder volume is 29.1 mL. Discussed the importance of drinking adequate amount of fluid daily for UTI prevention as well as for renal stones. When asked patient denies urinary urgency, urinary frequency, incontinence, nocturia, hematuria, dysuria, foul smelling urine, changes to urinary stream, flank pain, fever, and or chills. She denies any other issues or concerns at this time. 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 Father No problems noted. Sister Lymphoma Sister Dementia Sister Substance abuse Social History Housing: House Alcohol intake: never Patient Tobacco Use Status: Never used Tobacco e-Cigarette/Vaping Use: Never Used Second Hand Smoke Exposure: No service: No Current occupational status: retired Cognitive needs: No Hearing needs: No Vision needs: Yes Review of Systems Const Reports no additional complaints Eyes Reports no additional complaints ENT Reports no additional complaints Card Reports as per [facility] Resp Reports as per HPI GI Reports as per HPI Reports as per HPI Musc Reports as per HPI Skin/Breast Reports as per HPI Neuro Reports no additional complaints Psych Reports no additional complaints Endo Reports no additional complaints Vin/Lymph Details: patient reports a history of breast cancer Physical Exam Const General: cooperative, healthy appearing, comfortable, no acute distress, well developed, alert and awake Nutritional Appearance: average body habitus Orientation/consciousness: patient oriented x3 Limitations: no limitations HEENT Head: Yes normal to inspection, Yes normocephalic and Yes atraumatic Ears: hearing grossly normal bilaterally Eyes General: appearance normal, both eyes and all related structures Neck Neck: Yes normal visual inspection and Yes trachea midline Chest Chest palpation & inspection: normal inspection of the chest Resp Effort & Inspection: normal respiratory effort and able to speak in complete sentences Cardio Rate: regular rate GI Inspection: Yes normal to inspection General: Yes no CVA tenderness Back/Spine/Pelvis Back: no CVA tenderness Skin General skin exam: no rashes or lesions noted Neuro General: patient oriented x3 Extrem General: Yes normal to inspection Psych Appearance: grossly normal and well kempt Mental Status: mental status grossly normal Speech and movement: Normal speech and movement present and Clear speech present Affect: normal affect Attitude: cooperative Thought process: Normal thought process present Thought content: Normal thought content present Insight: Good insight present (Psych) Judgement: Good judgement present (Psych) Results AMB Urinalysis, Automated UA Leukoctes 0 Panfilo/uL Last Edit by STACIE Stoddard on 12/07/22 11:03 UA Nitrite Negative Last Edit by STACIE Stoddard on 12/07/22 11:03 UA Urobilinogen 0.2 mg/dL Last Edit by STACIE Stoddard on 12/07/22 11:0 3 UA Protein 0 mg/dL Last Edit by STACIE Stoddard on 12/07/22 11:03 UA pH 5.5 Last Edit by STACIE Stoddard on 12/07/22 11:03 UA Blood 10 Jose/uL Last Edit by STACIE Stoddard on 12/07/22 11:03 UA Specific [place] 1.030 Last Edit by STACIE Stoddard on 12/07/22 11: 03 UA Ketone Negative Last Edit by STACIE Stoddard on 12/07/22 11:03 UA Bilirubin 0 mg/dL Last Edit by STACIE Stoddard on 12/07/22 11:03 UA Glucose 0 mg/dL Last Edit by STACIE Stoddard on 12/07/22 11:03 Results Reviewed Results Reviewed: Laboratory Last Values Urine pH (Auto) 5.5 12/07/22 11:03 Specific [place] (Auto) 1.030 12/07/22 11:03 Urine Protein (Auto) 0 mg/dL 12/07/22 11:03 Glucose (UA)(Auto) 0 mg/dL 12/07/22 11:03 Urine Ketones (Auto) Negative 12/07/22 11:03 Urine Blood (Auto) 10 Jose/uL 12/07/22 11:03 Urine Nitrite (Auto) Negative 12/07/22 11:03 Urine Bilirubin (Auto) 0 mg/dL 12/07/22 11:03 Urine Urobilinogen (Auto) 0.2 mg/dL 12/07/22 11:03 Leukocyte Esterase (Auto) 0 Panfilo/uL 12/07/22 11:03 Assessment & Plan Assessment & Plan (1) Recurrent UTI: Code(s): N39.0 - Urinary tract infection, site not specified (2) Nephrolithiasis: Code(s): N20.0 - Calculus of kidney Plan In office urinalysis results reviewed with the patient today; as noted above. PVR 0 mL. Patient denies any UTI like symptoms at this time. Patient reports be happy with current voiding parameters. Discussed UTI prevention with D mannose supplement, vitamin-C, increasing fluid intake, behavioral therapy with timed voiding, perineal hygiene and postcoital voiding, and management of constipation with stool softeners and increased fiber intake. Will obtain renal ultrasound in 1 year. Follow-up in 1 year with imaging to be completed prior; or sooner with any issues, concerns, and or questions. Orders: Orders US renal BI 364 Days N20.0 - Calculus of kidney AMB Urinalysis Automated Today Z13.9 - Encounter for screening, unspecified AMB Post Void Residual by ultrasound Today N39.8 - Other specified disorders of urinary system Patient Instructions: The patient had an opportunity to ask questions regarding the treatment plan. All questions were answered. Physical exam, labs, and imaging were discussed and reviewed in detail. As well as risks, benefits, and discussion of treatment choices. No major barriers to understanding were identified. The patient expressed understanding and agreement with the above treatment plan. The patient was made aware they should contact our office by phone for worsening of their current condition, the appearance of new symptoms, or with any questions or concerns. Compliance is encouraged with any medications and follow up testing that is ordered. It is a privilege to be allowed the opportunity to participate in? your urological care.? Again, if you have any questions or conc erns If you have any questions or concerns please do not hesitate to contact me. The office is [phone]. This note is constructed using voice recognition software. While every effort has been made to ensure accuracy community outreach worker errors may have been included. Yours sincerely, NIRAJ Antony Coding Level of Care Code Est Pt Level 3 (95019) Diagnoses Recurrent UTI N39.0 Nephrolithiasis N20.0
== END 2022-12-07 11:12 | disposition home or self-care (01) ==
PROVIDERS: Visit Provider Nurse Practitioner Family
DX: N39.0 Urinary tract infection, site not specified (principal); N20.0 Calculus of kidney; Z13.9 Encounter for screening, unspecified
CPT/HCPCS: 99213

== ENCOUNTER → 2022-12-07 10:44 | Outpatient (BNVA) | payer MEDICARE, SELFPAY | PROVIDERS: Visit Provider Nurse Practitioner Family | DX: N39.0 Urinary tract infection, site not specified (principal); N20.0 Calculus of kidney | CPT/HCPCS: 81003; 99212 ==

== ENCOUNTER 2023-08-27 12:15 | Outpatient (AMB) | payer MEDICARE, SELFPAY ==
[2023-08-27 12:33] VITALS: BP 100/70; PULSE 59; O2SAT 96; BMI 23.0
--- NOTE | 2023-08-27 12:33 | A.OFFVIS_ITS ---
Intake Vital Signs 08/27/23 12:33 Height 5 ft 2 in Weight 126 lb 0.2 oz BMI 23.0 BP 100/70 Blood Pressure Location Lt brachial Position Sitting Pulse 59 Pulse Source Pulse Oximeter Pulse Oximetry (%) 96 Oxygen Delivery Method Room Air Intake Visit Reasons: AWV G0438 Network Firewall Engineer Required: No Allergies amoxicillin [AMOXICILLIN] Allergy (Intermediate, Verified 08/27/23 12:33) RASH penicillin V Allergy (Intermediate, Verified 08/27/23 12:33) rash Penicillins [PENICILLINS] Allergy (Intermediate, Verified 08/27/23 12:33) RASH Sulfa (Sulfonamide Antibiotics) [SULFA(SULFONAMIDE ANTIBIOTICS)] Allergy (Intermediate, Verified 08/27/23 12:33) RASH simvastatin [SIMVASTATIN] Allergy (Unknown, Verified 08/27/23 12:33) DIZZINESS sulfamethoxazole [From BACTRIM] Allergy (Unknown, Verified 08/27/23 12:33) RASH trimethoprim [From BACTRIM] Allergy (Unknown, Verified 08/27/23 12:33) RASH Medication List - Last Reconciled 08/27/23 by Andriy Nazario MD albuterol sulfate 90 mcg/actuation 2 puffs PO Q4H PRN HPI AWV G0438 HPI Details 68-year-old female with a history of ronnie ast cancer 2005 osteoporosis GERD hypercholesterolemia asthma impaired glucose tolerance and generalized anxiety disorder coming in for annual well visit. Last seen in August 2022. Patient's mammogram is up-to-date October 2022 bone density is due this year 10/28/2021 colonoscopy May 2018. Review of the notes follows up with urology patient was prescribed an Estrace cream but never picked up. Patient had recurrent urinary tract infection. Workup did reveal a right kidney stone 2 mm patient was reminded about UTI prevention of D mannose supplement vitamin-C increasing fluid intake behavioral therapy with time voiding perineal hygiene, postcoital voiding. 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 Father No problems noted. Sister Lymphoma Sister Dementia Sister Substance abuse Social History Housing: House Alcohol intake: never Patient Tobacco Use Status: Never used Tobacco e-Cigarette/Vaping Use: Never Used Second Hand Smoke Exposure: No service: No Current occupational status: retired Cognitive needs: No Hearing needs: No Vision needs: Yes Questionnaire Medicare Wellness Checkup What [age]?: 65-70 What gender do you identify with?: female During the past 4 weeks, how much have you been bothered by emotional problems such as feeling anxious, depressed, irritable, sad or downhearted, and blue?: not at all During the past 4 weeks, has your physical & emotional health limited your social activities with family, friends, neighbors, or groups?: not at all During the past 4 weeks, how much bodily pain have you generally had?: no pain During the past 4 weeks, was someone available to help you if you needed & wanted help?: no, not at all During the past 4 weeks, what was the hardest physical activity you could do for at least 2 minutes?: moderate Can you get to places out of walking distance without help? (For eg., can you travel alone on buses, taxis or drive your car?): Yes Can you go shopping for groceries or clothes without someone's help?: Yes Can you prepare your own meals?: Yes Can you do your housework without help?: Yes Because of any health problems, do you need the help of another person with your personal care needs such as eating, bathing, dressing or getting around the house?: No Can you handle your own money without help?: Yes During the past 4 weeks, how would you rate your health in general?: very good During the past 4 weeks how have things been going for you?: pretty well Are you having difficulties driving your car?: no Do you always fasten your seat belt when you are in a car?: yes, usually During past 4 weeks, have you been bothered by the following: never: Sexual problems?, Trouble eating well? and Problems using the telephone? and sometimes: Falling or dizzy when standing up, Teeth or denture problems? and Tiredness or fatigue? Have you fallen 2 or more times in the past year?: No Are you afraid of falling?: No Are you a smoker?: no During the past 4 weeks, how many drinks of wine, beer, or other alcoholic beverages did you have?: no alcohol at all Do you exercise for about 20 minutes 3 or more times a week?: no, I usually do not exercise this much Have you been given information to help with the following?: no: Hazards in your house that might hurt you? and no: Keeping track of your medications? How often do you have trouble taking medicines the way you have been told to take them?: I do not have to take medicine How confident are you that you can control & manage most of your health problems?: very confident What is your race?: or origin or descent PHQ-9 Over the last 2 weeks, how often have you been bothered by any of the following problems? 1. Little interest or pleasure in doing things: not at all 2. Feeling down, depressed, or hopeless: not at all 3. Trouble falling or staying asleep, or sleeping too much: not at all 4. Feeling tired or having little energy: several days 5. Poor appetite or overeating: not at all 6. Feeling bad about yourself - or that you are a failure or have let yourself or your family down: several days 7. Trouble concentrating on things, such as reading the newspaper or watching television: not at all 8. Moving or speaking so slowly that other people could have noticed. Or the opposite - being so fidgety or restless that you have been moving around a lot more than usual: not at all 9. Thoughts that you would be better off or of hurting yourself in some way: not at all Total score: 2 Depression Screening Interpretation: Negative Depression Screening Done: Yes 22874 - PHQ-9 Billing: Yes Source: Developed by Drs. Donn Storm, Génesis Edwards, Petros Woodard and colleagues, with an educational regla from [employer]. Review of Systems Const Denies poor appetite and Denies weakness Eyes Denies no additional complaints ENT Reports Normal hearing present, Denies dizziness, Denies nasal congestion, Denies tinnitus and Denies sore throat Card Denies chest pain, Denies syncope, Denies rapid heart rate and Denies dyspnea Resp Denies cough and Denies dyspnea GI Denies change in stool character, Reports constipation, Denies diarrhea, Denies nausea and Denies vomiting Denies urinary frequency, Denies difficulty voiding and Denies dysuria Neuro Reports Normal hearing present, Denies confusion, Denies dizziness, Denies syncope and Denies weakness Psych Denies confusion Physical Exam Vital Signs: Oxygen Delivery Method Room Air 08/27/23 12:33 BMI result Body Mass Index 23.0 Const General: No confusion Orientation/consciousness: No confusion HEENT Head: Yes normocephalic Ears: external ears normal and TM's normal bilaterally Face and sinus: Yes normal facial exam Mouth: moist mucous membranes Throat: Yes tonsils normal Eyes Conjunctivae: conjunctivae normal Pupils: Equal, round and reactive pupils present and Pupil accommodation reflex normal Direct Ophthalmoscopy: normal light reflex Neck Neck: No lymphadenopathy Thyroid: Thyroid normal Chest Chest palpation & inspection: normal inspection of the chest Resp Effort & Inspection: normal respiratory effort and no audible wheezes Auscultation: clear to auscultation bilaterally, no crackles, no wheezes and lung sounds not diminished Cardio Rate: regular rate Rhythm: regular rhythm Peripheral pulses: radial pulses present and dorsalis pedis present GI Other: declined Palpation (GI): no masses Auscultation: normal bowel sounds and normoactive bowel sounds Rectal Exam - Female: deferred Skin General skin exam: no rashes or lesions noted Rashes: no rashes Neuro General: No confusion Cranial nerves: Yes Equal, round and reactive pupils present and Yes Normal hea ring present Cognition (Neuro): normal cognition Gait exam (Neuro): Normal gait present Motor exam (neuro): 5/5 motor strength present throughout Deep tendon reflexes (DTR's): Right brachioradialis reflex intensity grade: 2+, Left brachioradialis reflex intensity grade: 2+, Right patellar reflex intensity grade: 2+ and Left patellar reflex intensity grade: 2+ Extrem General: No edema Assessment & Plan Assessment & Plan (1) Medicare annual wellness visit, subsequent: Code(s): Z00.00 - Encounter for general adult medical examination without abnormal findings Plan: Patient is advised to eat healthy, keep well hydrated, keep active and have adequate sleep. (2) GERD (gastroesophageal reflux disease): Code(s): K21.9 - Gastro-esophageal reflux disease without esophagitis Qualifiers: Esophagitis presence: without esophagitis Qualified Code(s): K21.9 - Gastro-esophageal reflux disease without esophagitis Plan: Avoid the foods that causes that usually spicy foods, tomato products, juices, coffee, soda and foods that your sensitive to. After eating do not lie down, allow 3-4 hours before in lie down. And keep the head of bed above 30 degrees to avoid the acid from going up. (3) Hypercholesterolemia: Code(s): E78.00 - Pure hypercholesterolemia, unspecified Plan: Avoid fried foods, chicken skin, eggs, butter margarine, pastries and meat. Be it pork or beef they have a lot of cholesterol LDL goal of less than 130 and triglyceride of less than 150 ASCVD risk 10 year 4.7% low (4) Impaired glucose tolerance: Code(s): R73.02 - Impaired glucose tolerance (oral) Plan: Decrease the amount of carbohydrate intake, pasta, bread, rice and potatoes are all sugar and that is aside from all the sweet stuff, remember that fruits are good but they are Sweet also. (5) Asthma: Code(s): J45.909 - Unspecified asthma, uncomplicated Qualifiers: Asthma complication type: uncomplicated Asthma persistence: intermittent Asthma severity: mild Qualified Code(s): J45.20 - Mild intermittent asthma, uncomplicated Plan: Continue with the inhaler as needed (6) Generalized anxiety disorder: Code(s): F41.1 - Generalized anxiety disorder Plan: Stable (7) Nephrolithiasis: Code(s): N20.0 - Calculus of kidney Plan: Patient continues to follow-up with urology and keep well hydrated. Orders: Orders Comprehensive Met. Panel Today E78.00 - Pure hypercholesterolemia, unspecified Hemoglobin A1c Today R73.02 - Impaired glucose tolerance (oral) Lipid Panel Today E78.00 - Pure hypercholesterolemia, unspecified, R73.02 - Impaired glucose tolerance (oral) Thyroid Stimulating Hormone Today R73.02 - Impaired glucose tolerance (oral) XR DEXA axial skeleton 2 Months M81.0 - Age-related osteoporosis without current pathological fracture US renal BI Today N20.0 - Calculus of kidney Complete Blood Count Auto Diff Today E78.00 - Pure hypercholesterolemia, unspecified Free T4 (Free Thyroxine) Today R73.02 - Impaired glucose tolerance (oral) Vitamin B12 and Folate Today R73.02 - Impaired glucose tolerance (oral) Vitamin D 25-OH Total Today R73.02 - Impaired glucose tolerance (oral) Medications: Refilled albuterol sulfate 90 mcg/actuation 2 puffs PO Q4H PRN 8.5 grams 0RF bronchospasm M81.0 - Age-related osteoporosis without current pathological fracture Quality Reporting (2019) Depression/Bipolar (159/160/161/177) PHQ-9: Total score: 2 Coding Level of Care Code Medicare Subsequent (G0439) Diagnoses Medicare annual wellness visit, subsequent Z00.00 Gastroesophageal reflux disease without esophagitis K21.9 Esophagitis presence: without esophagitis Hypercholesterolemia E78.00 Impaired glucose tolerance R73.02 Mild intermittent asthma without complication J45.20 Asthma complication type: uncomplicated Asthma persistence: intermittent Asthma severity: mild Generalized anxiety disorder F41.1 Nephrolithiasis N20.0
== END 2023-08-27 13:08 | disposition home or self-care (01) ==
PROVIDERS: PCP Internal Medicine; Visit Provider Internal Medicine
DX: Z00.00 Encounter for general adult medical examination without abnormal findings (principal); K21.9 Gastro-esophageal reflux disease without esophagitis; Z85.3 Personal history of malignant neoplasm of breast; R73.02 Impaired glucose tolerance (oral); J45.20 Mild intermittent asthma, uncomplicated; F41.1 Generalized anxiety disorder; N20.0 Calculus of kidney
CPT/HCPCS: G0439

== ENCOUNTER 2023-10-01 07:52 | Outpatient (REF) | payer MEDICARE, SELFPAY ==
[2023-10-01 08:07] LABS: MANUAL DIFF FLAG NO
[2023-10-01 08:21] LABS: Basophils Absolute Auto 0.1 X10*3/uL (0.0-0.2); Basophils Percent Auto 0.9 % (0-2); Eosinophils Absolute Auto 0.3 X10*3/uL (0.0-0.4); Eosinophils Percent Auto 4.3 % (0-4); Hematocrit 40.4 % (37.0-47.0); Hemoglobin 12.9 g/dl (12.0-16.0); Imm Gran Abs Auto 0.02 X10*3/uL (0.00-0.03); Imm Gran Pct Auto 0.3 % (0.0-0.4); Lymphocytes Absolute Auto 2.8 X10*3/uL (1.2-4.9); Lymphocytes Percent Auto 39.8 % (20-40); Mean Corpuscular HGB Conc 31.9 g/dl (31.0-35.0); Mean Corpuscular Hemoglobin 26.5 pg (27.0-33.0); Mean Corpuscular Volume 83.1 fL (80.0-98.0); Mean Platelet Volume 11.8 fL (9.4-12.3); Monocytes Absolute Auto 0.7 X10*3/uL (0.1-1.2); Monocytes Percent Auto 9.4 % (2-11); Neutrophils Absolute Auto 3.2 x10*3/uL (2.0-8.3); Neutrophils Percent Auto 45.3 % (45-73); Platelet Count 214 X10*3/uL (160-400); Red Blood Count 4.86 X10*6/uL (4.20-5.50); Red Cell Distribution Width 14.6 % (11.0-16.0)
[2023-10-01 09:08] LABS: Alanine Aminotransferase 21 U/L (0-31); Alkaline Phosphatase 79 U/L (39-117); Anion Gap 13 (12-20); Aspartate Amino Transferase 27 U/L (5-31); Bilirubin Total 0.3 mg/dL (0.0-1.0); Blood Urea Nitrogen 18 mg/dL (9-16); Calcium 9.4 mg/dL (8.4-10.2); Carbon Dioxide 25 mmol/L (22-29); Chloride 109 mmol/L (96-108); Cholesterol 213 mg/dL (<200); Estimated Glomerular Filt Rate 56; Glucose Random 128 mg/dL (60-115); HDL Cholesterol 44 mg/dL (>40); LDL Cholesterol Calculated 150 mg/dL (<100); Potassium 4.1 mmol/L (3.3-5.1); Sodium 143 mmol/L (135-145); Total Protein 7.9 g/dL (6.5-8.0); Triglycerides 95 mg/dL (<150)
[2023-10-01 09:24] LABS: Estimated Average Glucose 131 mg/dL; Hemoglobin A1c % 6.2 % (<6.0)
[2023-10-01 09:25] LABS: Free T4 (Free Thyroxine) 0.96 ng/dL (0.71-1.85); Thyroid Stimulating Hormone 1.06 uIU/mL (0.32-4.0); Vitamin D 25-OH Total 48.3 ng/mL (>30)
[2023-10-01 09:37] LABS: Folate 11.1 ng/mL (> or = 4.0); Vitamin B12 385 pg/mL (200-900)
== END 2023-10-01 07:53 | disposition home or self-care (01) ==
LOC: HO.LAB 07:52
PROVIDERS: PCP Internal Medicine; Visit Provider Internal Medicine
DX: E78.00 Pure hypercholesterolemia, unspecified (principal); R73.02 Impaired glucose tolerance (oral)
CPT/HCPCS: 36415; 80053; 80061; 82306; 82607; 82746; 83036; 84439; 84443; 85025

== ENCOUNTER → 2023-10-19 10:05 | Outpatient (RCR) | payer OTHER, SELFPAY ==
--- NOTE | 2020-03-12 11:20 | HO.HEMONCTE1 ---
[facility] Telehealth - Telehealth Location of Provider rendering services: HEM/ONC OFFICE Location of Patient: HOME Patient Identification confirmed using: Name, : Yes Telehealth Method: VIA TELEPHONE Patient verbally consented to treatment: YES Patient verbally consented to billing insurance company: Yes Patient informed of any privacy concerns related to visit: Yes Medical Summary - Medical Summary Date of Service: 03/12/20 Chief complaint: FOLLOW-UP FOR DCIS OF BOTH BREASTS. 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 CURRENT THERAPY: 1. She underwent bilateral lumpectomies and sentinel node dissection. Margins are positive and sentinel nodes were benign. She had a re-excision on June 21. 2. She had radiation therapy. 3 Completed 5 years of Tamoxifen in 2007. Interval History Interval history: This is a pleasant 64-year-old lady, here for a follow-up visit. She tells me she is doing okay. Lately her lungs have been the issue. The asthma is acting up. She has had a cough. Nothing comes up. She had been given a couple of inhalers however she has not been using them to regularly. Now she has started to use them. She has also been given an antibiotic. That is helping. She tried shoveling today and got short of breath after that. Other than that, she is doing well. She denies any breast related complaints. She denies chest pain. She denies any abdominal pain nausea vomiting heartburn indigestion. Bowels are moving without any gross blood in it. She enjoys a good appetite. She has gained weight. She actually had a colonoscopy by Dr. Edwards. She had hyperplastic polyp. She is in good spirits. The rest of the review of systems is unremarkable. Previous history: She has a sister with dementia. She and her daughter have been caring for her, 31/08. Even at night she would go and sleep over, to take care of her. However she had been getting worse. Finally she was accepted at a care home: [facility], in [place]. She still brings her food for lunch and dinner, till her sister is able to adjust. However she has finally had her life back. Is staying at home with her and kids. Review of Systems - Constitutional Reports no additional constitutional complaints - Eyes Reports no additional eye complaints - ENT Reports no additional ear, nose, mouth, and throat complaints - Cardiovascular Reports no additional cardiovascular complaints - Respiratory Reports no additional respiratory complaints, Reports chest congestion, Reports cough, Reports dyspnea - Gastrointestinal Reports no additional gastrointestinal complaints - Genitourinary Reports no additional female genitourinary complaints - Musculoskeletal Reports no additional musculoskeletal complaints - Integumentary/Breasts Skin/Breast: Reports no additional skin complaints - Neurologic Reports no additional neurologic complaints - Psychiatric Reports no additional psychiatric complaints - Endocrine Reports no additional endocrine complaints - Hematologic/Lymphatic Reports no additional hematologic/lymphatic complaints - Allergic/Immunologic Reports no additional allergic/immunologic complaints Home Medications and Allergies Allergies Allergy/AdvReac Type Severity Reaction Status Date / Time amoxicillin [AMOXICILLIN] Allergy Intermediate RASH Verified 02/27/20 15:20 penicillin V Allergy Intermediate rash Verified 02/27/20 15:20 Penicillins [PENICILLINS] Allergy Intermediate RASH Verified 02/27/20 15:20 Sulfa (Sulfonamide Allergy Intermediate RASH Verified 02/27/20 15:20 Antibiotics) [SULFA(SULFONAMIDE ANTIBIOTICS)] simvastatin [SIMVASTATIN] Allergy Unknown DIZZINESS Verified 02/27/20 15:20 sulfamethoxazole Allergy Unknown RASH Verified 02/27/20 15:20 [From BACTRIM] trimethoprim [From BACTRIM] Allergy Unknown RASH Verified 02/27/20 15:20 Progress Note: A/P (1) Ductal carcinoma in situ (DCIS) of both breasts Status: Acute Assessment and plan: 64 year-old lady, with history of bilateral DCIS diagnosed back in April of 2002. She had bilateral breast lumpectomy, and sentinel nodes, which were benign. She had radiation therapy to both breasts. She completed 5 years of Tamoxifen in 2007. She denies any symptoms or signs of recurrent disease. She had bilateral mammography, on October 11 2019. This was normal. Bone density was in October of 2019, and revealed osteopenia, with a T-score of -2.3. She is clinically doing very well. PLAN: Will schedule a mammogram for October of this year. She will take calcium and vitamin D Supplements. She return in 6 months for a follow-up visit. She will call for any questions or problems prior to that time. 25 minutes was spent coordinating her care including the tele interview, review of labs, review of imaging, and counseling the patient. Thanks, CC: Dr. Alvarado - Time Spent With Patient Total time spent is greater than 50% in coordination of care (as documented) at patient's floor/unit and/or counseling patient: 25 - 35 minutes
--- NOTE | 2020-03-12 11:38 | MHC.HEMONC ---
Televisit today with Dr Romero. Clinical summary updated [facility] nurse. Provider spoke with patient. Follow up appoint booked and mailed.
[2020-09-09 10:06] VITALS: BP 117/62; PULSE 80; RESP 16; TEMP 37.4; O2SAT 97; BMI 23.6
[2020-09-09 10:36] LABS: Basophils Percent Auto 0.6 % (0-2); Eosinophils Absolute Auto 0.2 X10*3/uL (0.0-0.4); Eosinophils Percent Auto 3.5 % (0-4); Hematocrit 36.7 % (37-47); Hemoglobin 11.7 g/dl (12.0-16.0); Imm Gran Abs Auto 0.02 X10*3/uL (0.00-0.03); Imm Gran Pct Auto 0.3 % (0.0-0.4); Lymphocytes Absolute Auto 2.3 X10*3/uL (1.2-4.9); Lymphocytes Percent Auto 36.5 % (20-40); MANUAL DIFF FLAG SCAN; Mean Corpuscular HGB Conc 31.9 g/dl (31.0-35.0); Mean Corpuscular Hemoglobin 26.8 pg (27.0-33.0); Monocytes Absolute Auto 0.6 X10*3/uL (0.1-1.2); Monocytes Percent Auto 9.6 % (2-11); Neutrophils Absolute Auto 3.2 X10*3/uL (2.0-8.3); Neutrophils Percent Auto 49.5 % (45-73); Platelet Count 195 X10*3/uL (160-400); Red Blood Count 4.37 X10*6/uL (4.20-5.50); Red Cell Distribution Width 14.5 % (11.0-16.0); SCAN SMEAR FLAG 1; White Blood Count 6.4 X10*3/uL (4.8-10.8)
--- NOTE | 2020-09-09 10:46 | P.PNHO_ITS ---
Medical Summary - Medical Summary Date of Service: 09/09/20 Chief complaint: Follow-up for bilateral DCIS. 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 CURRENT THERAPY: 1. She underwent bilateral lumpectomies and sentinel node dissection. Margins are positive and sentinel nodes were benign. She had a re-excision on June 21. 2. She had radiation therapy. 3 Completed 5 years of Tamoxifen in 2007. Interval History Interval history: This is a pleasant 65 year-old lady, here for a follow-up visit. She tells me she is doing very well. She denies any breast related complaints. She denies chest pain nor shortness of breath. She denies any abdominal pain nausea vomiting heartburn indigestion. Bowels are moving without any gross blood in it. She enjoys a good appetite. She has gained weight. She actually had a colonoscopy by Dr. Edwards. She had hyperplastic polyp. She is in good spirits. The rest of the review of systems is unremarkable. Previous history: 1. Lately her lungs have been the issue. The asthma is acting up. She has had a cough. Nothing comes up. She had been given a couple of inhalers however she has not been using them to regularly. Now she has started to use them. She has also been given an antibiotic. That is helping. She tried shoveling today and got short of breath after that. 2. She has a sister with dementia. She and her daughter have been caring for her, 31/08. Even at night she would go and sleep over, to take care of her. However she had been getting worse. Finally she was accepted at a fdc: [facility], in [place]. She still brings her food for lunch and dinner, till her sister is able to adj ust. However she has finally had her life back. Is staying at home with her and kids. Review of Systems - Constitutional Reports no additional constitutional complaints - Eyes Reports no additional eye complaints - ENT Reports no additional ear, nose, mouth, and throat complaints - Cardiovascular Reports no additional cardiovascular complaints - Respiratory Reports no additional respiratory complaints - Gastrointestinal Reports no additional gastrointestinal complaints - Genitourinary Reports no additional female genitourinary complaints - Musculoskeletal Reports no additional musculoskeletal complaints - Integumentary/Breasts Skin/Breast: Reports no additional skin complaints - Neurologic Reports no additional neurologic complaints - Psychiatric Reports no additional psychiatric complaints - Endocrine Reports no additional endocrine complaints - Hematologic/Lymphatic Reports no additional hematologic/lymphatic complaints - Allergic/Immunologic Reports no additional allergic/immunologic complaints ON LICENSE OF [facility] Medical History: Medical History (Last Reviewed 09/09/20 @ 10:09 by Tone Dodson) Anxiety Asthma Atrophic vaginitis Breast cancer Ductal carcinoma in situ (DCIS) of both breasts GERD (gastroesophageal reflux disease) Hypercholesterolemia Impaired glucose tolerance Mixed incontinence urge and stress Shortness of breath Functional capacity: independent ambulation Family History: Family History (Last Reviewed 09/09/20 @ 10:10 by Tone Dodson) Mother No problems noted. Father No problems noted. Sister Lymphoma Sister Dementia Surgical History: Surgical History (Last Reviewed 09/09/20 @ 10:09 by Tone Dodson) delivery delivered S/P breast lumpectomy Social History: Social History (Last Reviewed 09/09/20 @ 10:10 by Tone Dodson) Living Situation History: Housing: House Alcohol History: Alcohol intake: never Tobacco History: Patient Tobacco Use Status: Never used Tobacco e-Cigarette/Vaping Use: Never Used Second Hand Smoke Exposure: No Occupation Assessmet: service: No Current occupational status: retired Home Medications and Allergies Allergies Allergy/AdvReac Type Severity Reaction Status Date / Time amoxicillin [AMOXICILLIN] Allergy Intermediate RASH Verified 08/19/20 12:59 penicillin V Allergy Intermediate rash Verified 08/19/20 12:59 Penicillins [PENICILLINS] Allergy Intermediate RASH Verified 08/19/20 12:59 Sulfa (Sulfonamide Allergy Intermediate RASH Verified 08/19/20 12:59 Antibiotics) [SULFA(SULFONAMIDE ANTIBIOTICS)] simvastatin [SIMVASTATIN] Allergy Unknown DIZZINESS Verified 08/19/20 12:59 sulfamethoxazole Allergy Unknown RASH Verified 08/19/20 12:59 [From BACTRIM] trimethoprim [From BACTRIM] Allergy Unknown RASH Verified 08/19/20 12:59 Exam Vital signs: Vital Signs Temp 99.3 F 09/09/20 10:06 Pulse 80 09/09/20 10:06 Resp 16 09/09/20 10:06 BP 117/62 09/09/20 10:06 Pulse Ox 97 09/09/20 10:06 Intake & Output 09/08/20 09/09/20 09/09/20 18:59 06:59 18:59 Other: Weight 58.6 kg Weight in Grams 21774 Weight 58.6 kg Body Mass Index 23.6 - Constitutional Present: no acute distress - Routine HEENT Exam Head: Present: normal inspection Eye: Present: normal appearance ENT: Present: mucous membranes moist - Routine Neck Exam Present: full ROM - Routine Respiratory Exam Present: CTAB - Routine Cardiovascular Exam Cardiovascular: Present: RRR, S1, S2 - Routine Abdominal Exam Present: soft, nontender - Routine Rectal Exam Patient deferred: digital exam - Routine Extremities Exam Present: nontender - Routine Back/Spine/Pelvis Exam Back/Spine: Present: full ROM - Routine Skin Exam Present: intact - Routine Neurological Exam Present: alert, oriented X3 - Routine Psychiatric Exam Present: normal affect Data - Labs CBC & Chem 7: 09/09/20 10:16 09/09/20 10:16 Progress Note: A/P (1) Ductal carcinoma in situ (DCIS) of both breasts Status: Inactive Assessment and plan: 65 year-old lady, with history of bilateral DCIS diagnosed back in April of 2002. She had bilateral breast lumpectomy, and sentinel nodes, which were benign. She had radiation therapy to both breasts. She completed 5 years of Tamoxifen in 2007. She denies any symptoms or signs of recurrent disease. She had bilateral mammography, on October 29, 2019. This was normal. Bone density was in October of 2019, and revealed osteopenia, with a T-score of -2.3. She is clinically doing very well. She was given raloxifene for the low bone density however, she had some nausea after taking one pill and she discontinued. PLAN: She was advised to retry. I did explain the risk associated with osteopenia including bone fractures. Will schedule a mammogram for October of this year. She will take calcium and vitamin D Supplements. She will continue to follow up with her primary. I will be happy to see her again if there is any questions or problems. She can call for any questions or problems she may have. Thanks, CC: Dr. Nazario. - Time Spent With Patient Time Spent with Patient (in minutes): 25
[2020-09-09 11:02] LABS: SLIDE REVIEW VERIFIED
[2020-09-09 11:20] LABS: Alanine Aminotransferase 20 U/L (0-31); Alkaline Phosphatase 72 U/L (39-117); Anion Gap 12 (12-20); Aspartate Amino Transferase 29 U/L (5-31); Bilirubin Total 0.3 mg/dL (0.0-1.0); Blood Urea Nitrogen 13 mg/dL (9-16); Calcium 8.9 mg/dL (8.4-10.2); Carbon Dioxide 26 mmol/L (22-29); Chloride 105 mmol/L (96-108); Creatinine Clr Calc Pharmacy 48.3; Estimated Glomerular Filt Rate > 60; Glucose Random 115 mg/dL (60-115); Potassium 4.3 mmol/L (3.3-5.1); Sodium 139 mmol/L (135-145); Total Protein 7.4 g/dL (6.5-8.0)
--- NOTE | 2020-09-09 15:55 | MHC.HEMONCMA ---
Pt came in today for ONC f/u and states she is doing extremely well. Clinical summary is updated and pt no longer needs to keep being seen at the office. pt was informed to call back if needed.
== END | disposition home or self-care (01) ==
LOC: HO.ONC 03-12 11:27
PROVIDERS: PCP Internal Medicine; Visit Provider Internal Medicine Medical Oncology
DX: Z86.000 Personal history of in-situ neoplasm of breast (principal); M85.80 Other specified disorders of bone density and structure, unspecified site; Z92.3 Personal history of irradiation
CPT/HCPCS: 36415; 80053; 85025; 99214

== ENCOUNTER 2023-10-22 14:29 | Outpatient (REF) | payer MEDICARE, SELFPAY ==
--- NOTE | ~2023-10-22 | US_ITS ---
EXAMINATION: US RETROPERITONEAL LIMITED (RENAL ONLY) CLINICAL INFORMATION: Calculus of kidney. COMPARISON: Ultrasound retroperitoneal 05/11/2022. Ultrasound renal 01/26/2008. TECHNIQUE: Real-time imaging of the kidneys. FINDINGS: RIGHT KIDNEY: 9.2 x 3.4 x 4.6 cm (SAG x AP x TRV). The kidney is normal in size, contour, and echogenicity. Renal cortical thickness is normal. An echogenic focus measuring 3 mm in size present, nonobstructing calculus. No focal parenchymal lesions or hydronephrosis. LEFT KIDNEY: 10.9 x 3.9 x 3.9 cm (SAG x AP x TRV). The kidney is normal in size, contour, and echogenicity. Renal cortical thickness is normal. No calculi or hydronephrosis. There is a 4 mm bright echogenic focus seen in the mid renal cortex which has appearances of a tiny AML. ADDITIONAL FINDINGS: An echogenic liver is seen consistent with hepatic steatosis. US/US renal BI IMPRESSION: 1. Nonobstructing 3 mm right renal calculus. 2. Tiny echogenic focus in the left renal cortex which has appearances of a benign angiomyolipoma. A follow-up ultrasound is recommended in one year's time to document stability. 3. Incidentally noted hepatic steatosis. Electronically signed by: Efrem Riley MD 10/27/2023 05:05 PM EDT
== END 2023-10-22 14:30 | disposition home or self-care (01) ==
LOC: HO.US 14:29
PROVIDERS: PCP Internal Medicine; Visit Provider Internal Medicine
DX: N20.0 Calculus of kidney (principal)
CPT/HCPCS: 76775

== ENCOUNTER 2023-11-12 13:33 | Outpatient (REF) | payer MEDICARE, SELFPAY ==
--- NOTE | ~2023-11-12 | MM_ITS ---
EXAMINATION: MM SCREENING DIGITAL BREAST TOMOSYNTHESIS, BILATERAL CLINICAL INFORMATION: Screening. Asymptomatic. COMPARISON: Mammography: Comparison is made with available priors TECHNIQUE: Digital breast mammography with tomosynthesis is performed in both the craniocaudal and mediolateral oblique views along with computer-aided detection (CAD). FINDINGS: There are scattered areas of fibroglandular density (ACR BI-RADS breast composition Category b). Bilateral post lumpectomy changes are stable. There are no significant masses, abnormal calcifications, or other abnormalities. MM/MM tomosynthesis screening BI IMPRESSION: No mammographic evidence of malignancy. ASSESSMENT: BI-RADS BI-RADS 2 - Benign Findings RECOMMENDATION: Routine annual mammography screening. 1 year F/U This examination should not preclude the clinical evaluation of a suspicious palpable abnormality. This patient's information was entered into a reminder system with a target due date for their next mammogram. Electronically signed by: Susie Ortiz DO 11/12/2023 08:17 PM EDT
--- NOTE | ~2023-11-12 | MM_ITS ---
EXAMINATION: BONE DENSITOMETRY CLINICAL INDICATION: Age-related osteoporosis without current pathological fracture. COMPARISON: Previous BD dated 10/14/2021 and baseline BD dated 07/29/2007. TECHNIQUE: Using a [employer] DXA System (software version: 13.1) manufactured by [employer], dual-energy x-ray absorptiometry was performed of the lumbar spine and left hip. The images are of good technical quality. Summary results are attached. FINDINGS: LEFT FEMUR, NECK: Current: BMD 0.725 g/cm2, Z-score -0.5, T-score -2.3, osteopenia. Prior: BMD 0.734 g/cm2. Baseline: BMD 0.898 g/cm2. LEFT FEMUR, TOTAL: Current: BMD 0.708 g/cm2, Z-score -0.9, T-score -2.4, osteopenia, 3.8% decrease from previous, 22.9% decrease from baseline (<5% change is not significant). Prior: BMD 0.736 g/cm2. Baseline: BMD 0.918 g/cm2. AP SPINE L1-L4: Current: BMD 0.846 g/cm2, Z-score -0.9, T-score -2.8, osteoporosis, 0.8% increase from previous, 22.5% decrease from baseline (<5% change is not significant). Prior: BMD 0.839 g/cm2. Baseline: BMD 1.091 g/cm2. IDENTIFIED RISK FACTORS: Menopause, family history (parent hip fracture). HISTORY OF FRACTURE: None listed. MEDICATIONS: None listed. MM/XR DEXA axial skeleton IMPRESSION: 1. DIAGNOSIS: Osteoporosis based on the lowest T-score value of -2.8 in the lumbar spine applying World Health Organization criteria. 2. 10-YEAR FRACTURE RISK PREDICTION, FRAX: According to the guidelines, FRAX calculation should only be performed on patients in the osteopenia bone density category. Therefore, FRAX was not performed on this patient. 3. Treatment Recommendations: NOF guidelines recommend consideration for treatment in postmenopausal women and men age 50 and older presenting with the following: -A hip or vertebral (clinical or morphometric) fracture. -T-score less than or equal to -2.5 at the femoral neck or spine after appropriate evaluation to exclude secondary causes. -Low bone mass at the hip or spine and a 10-year fracture probability by FRAX of greater than or equal to 3% for hip fracture or greater than or equal to 20% for major osteoporotic fracture based on the [place] adapted WHO algorithm. 4. Other Recommendations: All treatment decisions require clinical judgment and consideration of individual patient factors, including patient preferences, comorbidities, previous drug use, risk factors not captured in the FRAX model (e.g. frailty, falls, vitamin D deficiency, increased bone turnover, interval significant decline in bone density) and possible under or overestimation of fracture risk by FRAX. Additional medical evaluation for secondary cause of low bone mineral density may be appropriate. FUTURE SCAN RECOMMENDATION: People with diagnosed cases of osteoporosis or at high risk for fracture should have regular bone mineral density tests. For patients eligible for Medicare, routine testing is allowed once every 2 years. The testing frequency can be increased to one year for patients who have rapidly progressing disease, those who are receiving or discontinuing medical therapy to restore bone mass, or have additional risk factors. Electronically signed by: David Chaney MD 11/22/2023 09:49 AM EDT
== END 2023-11-12 13:34 | disposition home or self-care (01) ==
LOC: HO.MAMMO 13:33
PROVIDERS: PCP Internal Medicine; Visit Provider Internal Medicine
DX: Z12.31 Encounter for screening mammogram for malignant neoplasm of breast (principal); M81.0 Age-related osteoporosis without current pathological fracture
CPT/HCPCS: 77063; 77067; 77080

== ENCOUNTER → 2023-11-12 13:45 | Outpatient (BNV) | payer MEDICARE, SELFPAY | PROVIDERS: PCP Internal Medicine; Visit Provider Internal Medicine | DX: Z12.31 Encounter for screening mammogram for malignant neoplasm of breast (principal) | CPT/HCPCS: 77063; 77067 ==

== ENCOUNTER 2023-12-08 14:15 | Outpatient (REF) | payer MEDICARE, SELFPAY ==
[2023-12-08 14:51] LABS: Appearance Urine Clear; Color Urine Yellow; Glucose Urine UA Negative (Negative); Leukocyte Esterase Urine Trace (Negative); Nitrite Urine Negative (Negative); Specific Gravity - Urine <= 1.005 (1.005-1.025); UMIC TRIGGER UACC YES; Urine Blood Negative (Negative); Urine Ketones Negative (Negative); Urine Protein Negative (Neg-Trace)
[2023-12-08 14:56] LABS: Bacteria Urine None Seen (None Seen); Hyaline Casts Urine 0-2 /LPF (0-2); RBC Urine 0-2 /HPF (0-2); Squamous Epithelial Cell Urine 0-2 /HPF (0-2); WBC Urine 0-5 /HPF (0-5)
== END 2023-12-08 14:16 | disposition home or self-care (01) ==
LOC: HO.LAB 14:15
PROVIDERS: PCP Internal Medicine; Visit Provider Internal Medicine
DX: R30.0 Dysuria (principal)
CPT/HCPCS: 81001

== ENCOUNTER 2023-12-15 13:45 | Outpatient (REF) | payer MEDICARE, SELFPAY ==
--- NOTE | ~2023-12-15 | US_ITS ---
EXAMINATION: US RETROPERITONEAL LIMITED (RENAL ONLY) CLINICAL INFORMATION: Other specified disorders of kidney and ureter. COMPARISON: Renal ultrasound 10/22/2023. Ultrasound kidneys and bladder 05/11/2022. TECHNIQUE: Real-time imaging of the kidneys. FINDINGS: RIGHT KIDNEY: 10.1 x 3.7 x 3.9 cm (SAG x AP x TRV). The kidney is normal in size, contour, and echogenicity. Renal cortical thickness is normal. No calculi or focal parenchymal lesions. No hydronephrosis. LEFT KIDNEY: 9.3 x 4.5 x 4.3 cm (SAG x AP x TRV). Limited visualization secondary to ribs and bowel gas. The kidney is normal in size, contour, and echogenicity. Renal cortical thickness is normal. No calculi or focal parenchymal lesions. No hydronephrosis. Incidental note made of a hyperechoic liver consistent with steatosis. Also noted is a large shadowing gallstone. US/US renal BI IMPRESSION: 1. Normal-appearing kidneys. Somewhat limited visualization on the left. 2. Incidentally noted hepatic steatosis and cholelithiasis. Electronically signed by: Efrem Riley MD 12/27/2023 08:10 PM [facility]
== END 2023-12-15 13:46 | disposition home or self-care (01) ==
LOC: HO.US 13:45
PROVIDERS: PCP Internal Medicine; Visit Provider Internal Medicine
DX: N28.89 Other specified disorders of kidney and ureter (principal)
CPT/HCPCS: 76775

== ENCOUNTER 2023-12-18 00:55 | Emergency (ER) | payer MEDICARE, SELFPAY ==
--- NOTE | 2023-12-18 | ECG_ITS ---
Test Reason : dizziness, sob Blood Pressure : / mmHG Vent. Rate : 085 BPM Atrial Rate : 085 BPM P-R Int : 180 ms QRS Dur : 074 ms QT Int : 388 ms P-R-T Axes : 071 067 066 degrees QTc Int : 461 ms Normal sinus rhythm Nonspecific ST abnormality Abnormal ECG When compared with ECG of 22-APR-2018 08:14, No significant change was found Referred By: Generic ED Physician Electronically Signed By:NATASHA FRIAS MD
[2023-12-18 01:01] VITALS: BP 150/79; PULSE 81; RESP 18; TEMP 36.8; O2SAT 100; BMI 21.4
[2023-12-18 01:10] VITALS: PULSE 88
[2023-12-18 01:27] LABS: MANUAL DIFF FLAG NO
[2023-12-18 01:28] LABS: Basophils Absolute Auto 0.1 X10*3/uL (0.0-0.2); Basophils Percent Auto 0.7 % (0-2); Eosinophils Absolute Auto 0.3 X10*3/uL (0.0-0.4); Eosinophils Percent Auto 3.8 % (0-4); Hematocrit 39.3 % (37.0-47.0); Imm Gran Abs Auto 0.01 X10*3/uL (0.00-0.03); Imm Gran Pct Auto 0.1 % (0.0-0.4); Lymphocytes Absolute Auto 3.5 X10*3/uL (1.2-4.9); Mean Corpuscular HGB Conc 33.1 g/dl (31.0-35.0); Mean Corpuscular Hemoglobin 26.5 pg (27.0-33.0); Mean Platelet Volume 11.6 fL (9.4-12.3); Monocytes Absolute Auto 0.7 X10*3/uL (0.1-1.2); Monocytes Percent Auto 8.1 % (2-11); Neutrophils Absolute Auto 3.9 x10*3/uL (2.0-8.3); Neutrophils Percent Auto 46.3 % (45-73); Platelet Count 216 X10*3/uL (160-400); Red Blood Count 4.91 X10*6/uL (4.20-5.50); Red Cell Distribution Width 14.4 % (11.0-16.0); White Blood Count 8.5 X10*3/uL (4.8-10.8)
[2023-12-18 01:44] LABS: Alanine Aminotransferase 22 U/L (0-31); Albumin Level 4.4 g/dL (3.5-5.0); Alkaline Phosphatase 88 U/L (39-117); Anion Gap 18 (12-20); Aspartate Amino Transferase 32 U/L (5-31); Bilirubin Direct < 0.2 mg/dL (0.0-0.5); Bilirubin Total 0.2 mg/dL (0.0-1.0); Blood Urea Nitrogen 15 mg/dL (9-16); Calcium 10.2 mg/dL (8.4-10.2); Carbon Dioxide 22 mmol/L (22-29); Chloride 108 mmol/L (96-108); Creatinine Clr Calc Pharmacy 43.6; Estimated Glomerular Filt Rate 56; Glucose Random 121 mg/dL (60-115); Lipase 52 U/L (8-78); Potassium 3.6 mmol/L (3.3-5.1); Sodium 144 mmol/L (135-145); Total Protein 8.4 g/dL (6.5-8.0)
--- NOTE | 2023-12-18 01:48 | ED.CHESTPAIN ---
HPI - Chest Pain General Chief Complaint: Chest Pain Stated Complaint: Dizzy,SOB Time Seen by Provider: 12/18/23 01:00 Source: patient Mode of arrival: ambulatory Limitations: no limitations History of Present Illness ED Provider: Dr. Moreno HPI narrative: Patient is a 68 yo female with DM, HTN, GERD, increased chol, who presents with 45 minutes of chest pain at rest. Patient states she was resting on the cough when she got epigastric pain radiating up her chest. Patient was told that she is passing a kidney stone and was told that this maybe why she is having discomfort Related Data Previous Rx's ?Medication ?Instructions ?Recorded albuterol sulfate 90 mcg/actuation 2 puff PO Q4H PRN bronchospasm 08/27/23 aerosol inhaler #8.5 grams Allergies Allergy/AdvReac Type Severity Reaction Status Date / Time amoxicillin [AMOXICILLIN] Allergy Intermediate RASH Verified 12/18/23 01:02 penicillin V Allergy Intermediate rash Verified 12/18/23 01:02 Penicillins [PENICILLINS] Allergy Intermediate RASH Verified 12/18/23 01:02 Sulfa (Sulfonamide Allergy Intermediate RASH Verified 12/18/23 01:02 Antibiotics) [SULFA(SULFONAMIDE ANTIBIOTICS)] simvastatin [SIMVASTATIN] Allergy Unknown DIZZINESS Verified 12/18/23 01:02 sulfamethoxazole Allergy Unknown RASH Verified 12/18/23 01:02 [From BACTRIM] trimethoprim [From BACTRIM] Allergy Unknown RASH Verified 12/18/23 01:02 Review of Systems Review of Systems: Yes all other systems are reviewed and are negative Neurologic: Denies Sensory deficit (Neuro) PMFSH Past Medical History Medical History Impaired glucose tolerance Osteopenia Hypercholesterolemia Atrophic vaginitis Mixed incontinence urge and stress GERD (gastroesophageal reflux disease) Breast cancer 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 Father No problems noted. Sister Lymphoma Sister Dementia Sister Substance abuse Social History Social History Housing: House Alcohol intake: never Patient Tobacco Use Status: Never used Tobacco Smoked in Last 30 Days: No e-Cigarette/Vaping Use: Never Used Second Hand Smoke Exposure: No Use of substances other than those prescribed or required for medical reasons: No Advance Directives: No Advance Directives Information Provided: Yes Do you have a plan to hurt others: No Plan service: No Current occupational status: retired Cognitive needs: No Hearing needs: No Vision needs: Yes Physical Exam Vital Signs: Vital Signs: Last Vital Signs Temp 98.2 F 12/18/23 01:01 Pulse 81 12/18/23 01:01 Resp 18 12/18/23 01:01 BP 150/79 H 12/18/23 01:01 Pulse Ox 100 12/18/23 01:01 O2 Del Method Room Air 12/18/23 01:01 BMI result Body Mass Index 21.4 Const: General: healthy appearing Nutritional Appearance: average body habitus Orientation/consciousness: oriented to person and patient oriented x3 Limitations: no limitations HEENT: Head: Yes normal to inspection Ears: external ears normal General nose exam: Normal external nose present Mouth: Normal oral and palatal mucosa present and oropharynx normal Throat: Yes posterior oropharynx normal Eyes: General: appearance normal, both eyes and all related structures Neck: Other: supple Neck: Yes normal visual inspection Chest: Chest palpation & inspection: normal inspection of the chest Resp: Auscultation: clear to auscultation bilaterally Cardio: Jugular venous distension: no JVD Rate: regular rate Rhythm: regular rhythm Heart sounds: S1 normal heart sound present and S2 normal heart sound present GI: Inspection: Yes normal to inspection Palpation (GI): Soft to palpation, nontender and No hepatosplenomegaly present Auscultation: normal bowel sounds : General: Yes no CVA tenderness Back/Spine/Pelvis: Back: no CVA tenderness Skin: General skin exam: no rashes or lesions noted Neuro: General: oriented to person and patient oriented x3 Cranial nerves: Yes CN's II-XII intact bilaterally Motor exam (neuro): 5/5 motor strength present throughout Sensory Exam: No Sensory deficit (Neuro) Extrem: General: Yes normal to inspection Psych: Appearance: grossly normal Course Reevaluation(s) Reevaluation #1: US did not show kidney stone, it did show a very large gallstone, it is possible that she is having biliary colic Time: 02:03 Medical Decision Making Differential Diagnosis Differential Diagnoses: The differential diagnosis associated with the presentation includes (cardiac ischemia, biliary colic, gastritis) Admission/Observation Consideration of admission/observation: Escalation of care including admission/observation considered (upon arrival patient was considered for admission) Lab Data 12/18/23 01:21 12/18/23 01:22 Labs: Lab Results 12/18/23 12/18/23 Range/Units 01:21 01:22 WBC 8.5 (4.8-10.8) X10*3/uL RBC 4.91 (4.20-5.50) X10*6/uL Hgb 13.0 (12.0-16.0) g/dl Hct 39.3 (37.0-47.0) % MCV 80.0 (80.0-98.0) fL MCH 26.5 L (27.0-33.0) pg MCHC 33.1 (31.0-35.0) g/dl RDW 14.4 (11.0-16.0) % Plt Count 216 (160-400) X10*3/uL MPV 11.6 (9.4-12.3) fL Immature Gran % (Auto) 0.1 (0.0-0.4) % Neut % (Auto) 46.3 (45-73) % Lymph % (Auto) 41.0 H (20-40) % [place] % (Auto) 8.1 (2-11) % Eos % (Auto) 3.8 (0-4) % Baso % (Auto) 0.7 (0-2) % Lymph # (Auto) 3.5 (1.2-4.9) X10*3/uL [place] # (Auto) 0.7 (0.1-1.2) X10*3/uL Eos # (Auto) 0.3 (0.0-0.4) X10*3/uL Baso # (Auto) 0.1 (0.0-0.2) X10*3/uL Abs Immat Gran (auto) 0.01 (0.00-0.03) X10*3/uL Absolute Neuts (auto) 3.9 (2.0-8.3) x10*3/uL Absolute Nucleated RBC 0.000 (0.0-0.012) X10*3/uL Nucleated RBC % (auto) 0.0 (0.0-0.2) /100WBC Sodium 144 (135-145) mmol/L Potassium 3.6 (3.3-5.1) mmol/L Chloride 108 (96-108) mmol/L Carbon Dioxide 22 (22-29) mmol/L Anion Gap 18 (12-20) BUN 15 (9-16) mg/dL Creatinine 0.99 (0.5-1.4) mg/dL Estim Creat Clear Calc 43.6 Estimated GFR 56 Random Glucose 121 H (60-115) mg/dL Calcium 10.2 D (8.4-10.2) mg/dL Total Bilirubin 0.2 (0.0-1.0) mg/dL Direct Bilirubin < 0.2 (0.0-0.5) mg/dL AST 32 H (5-31) U/L ALT 22 (0-31) U/L Alkaline Phosphatase 88 (39-117) U/L Troponin I High Sens < 2.7 (<3.5-17.0) ng/L Total Protein 8.4 H (6.5-8.0) g/dL Albumin 4.4 (3.5-5.0) g/dL Lipase 52 (8-78) U/L Independent Interpretation I performed an independent interpretation of an: EKG (sinus 85, no st or twave changes) Independent Historian Clinical information obtained from an independent historian. History obtained from or confirmed by: Spouse Tests considered The following testing was considered but not selected: US was considered but patient with recent unread US Chronic Conditions Patient?s care impacted by: Diabetes and Hypertension Discharge Plan Discharge Prescriptions: No Action albuterol sulfate 90 mcg/actuation HFA aerosol inhaler 2 puff PO Q4H PRN (Reason: bronchospasm) Qty: 8.5 0RF Print Language: Citizen Of [place]
[2023-12-18 01:52] LABS: Troponin-I High Sensitivity < 2.7 ng/L (<3.5-17.0)
[2023-12-18] MEDS: Famotidine 20 MG TABLET PO (02:16)
[2023-12-18 02:21] VITALS: BP 150/79; PULSE 81; RESP 18; TEMP 36.8; O2SAT 100
== END 2023-12-18 02:23 | disposition home or self-care (01) ==
PROVIDERS: Emergency Provider Emergency Medicine; PCP Internal Medicine
DX: R10.13 Epigastric pain (principal); I10 Essential (primary) hypertension; E11.9 Type 2 diabetes mellitus without complications
CPT/HCPCS: 36415; 80048; 80076; 83690; 84484; 85025; 93005; 99283; 99285

== ENCOUNTER → 2023-12-18 01:02 | Outpatient (BNV) | payer MEDICARE, SELFPAY | PROVIDERS: Emergency Provider Emergency Medicine; PCP Internal Medicine; Visit Provider Internal Medicine Cardiovascular Disease | DX: R94.31 Abnormal electrocardiogram [ECG] [EKG] (principal) | CPT/HCPCS: 93010 ==

== ENCOUNTER 2023-12-24 07:56 | Outpatient (REF) | payer MEDICARE, SELFPAY ==
[2023-12-24 09:02] LABS: Estimated Average Glucose 128 mg/dL; Hemoglobin A1C 149.3817 umol/L; Hemoglobin A1c % 6.1 % (<6.0); Total Hemoglobin (HGBA1C) 3428.3258 umol/L
[2023-12-24 09:04] LABS: Appearance Urine Clear; Color Urine Yellow; Glucose Urine UA Negative (Negative); Leukocyte Esterase Urine Trace (Negative); Nitrite Urine Negative (Negative); UMIC TRIGGER UACC YES; Urine Blood Small (1+) (Negative); Urine Ketones Negative (Negative); Urine Protein Negative (Neg-Trace)
[2023-12-24 09:15] LABS: Alanine Aminotransferase 24 U/L (0-31); Albumin Level 4.1 g/dL (3.5-5.0); Alkaline Phosphatase 77 U/L (39-117); Anion Gap 9 (12-20); Aspartate Amino Transferase 35 U/L (5-31); Bilirubin Total 0.5 mg/dL (0.0-1.0); Blood Urea Nitrogen 12 mg/dL (9-16); Calcium 9.1 mg/dL (8.4-10.2); Carbon Dioxide 26 mmol/L (22-29); Chloride 108 mmol/L (96-108); Cholesterol 174 mg/dL (<200); Estimated Glomerular Filt Rate > 60; Glucose Random 103 mg/dL (60-115); HDL Cholesterol 39 mg/dL (>40); LDL Cholesterol Calculated 120 mg/dL (<100); Potassium 4.1 mmol/L (3.3-5.1); Sodium 139 mmol/L (135-145); Total Protein 7.8 g/dL (6.5-8.0); Triglycerides 77 mg/dL (<150)
[2023-12-24 09:18] LABS: Bacteria Urine None Seen (None Seen); Hyaline Casts Urine 0-2 /LPF (0-2); RBC Urine 0-2 /HPF (0-2); Squamous Epithelial Cell Urine 0-2 /HPF (0-2); WBC Urine 0-5 /HPF (0-5)
== END 2023-12-24 07:57 | disposition home or self-care (01) ==
LOC: HO.LAB 07:56
PROVIDERS: PCP Internal Medicine; Visit Provider Internal Medicine
DX: E78.00 Pure hypercholesterolemia, unspecified (principal); E11.65 Type 2 diabetes mellitus with hyperglycemia
CPT/HCPCS: 36415; 80053; 80061; 81001; 81003; 83036

== ENCOUNTER 2024-03-02 08:28 | Outpatient (AMB) | payer MEDICARE, SELFPAY ==
--- NOTE | 2024-03-02 08:51 | A.OFFVIS_ITS ---
Intake Visit Reasons: 1y/US/PVR Intake Note: Patient presents today for 1yr follow up on: recurrent uti and nephrolithiasis Urology Medications: none Blood Thinner: none PVR: 0 mL's Shipping And Receiving Clerk Required: No Accompanied by: Self / Same As Patient Allergies amoxicillin [AMOXICILLIN] Allergy (Intermediate, Verified 03/02/24 09:44) RASH penicillin V Allergy (Intermediate, Verified 03/02/24 09:44) rash Penicillins [PENICILLINS] Allergy (Intermediate, Verified 03/02/24 09:44) RASH Sulfa (Sulfonamide Antibiotics) [SULFA(SULFONAMIDE ANTIBIOTICS)] Allergy (Intermediate, Verified 03/02/24 09:44) RASH simvastatin [SIMVASTATIN] Allergy (Unknown, Verified 03/02/24 09:44) DIZZINESS sulfamethoxazole [From BACTRIM] Allergy (Unknown, Verified 03/02/24 09:44) RASH trimethoprim [From BACTRIM] Allergy (Unknown, Verified 03/02/24 09:44) RASH Medication List - Last Reviewed 03/02/24 by Darin Healy albuterol sulfate 90 mcg/actuation 2 puffs PO Q4H PRN HPI Comments Details: Berta is a pleasant 68-year-old female patient of Dr. Nazario. She has a past medical history of osteopenia, hypercholesteremia, atrophic vaginitis, GERD, breast cancer with a lumpectomy in 2004, and asthma. She presents to the office today for a follow up of her recurrent urinary tract infections. In discussion with the patient today she denies having had any UTIs and or UTI like symptoms since her last office visit here over a year ago. She does discussed at length having had a recent cholecystectomy with Dr. Fuller at [facility] late last year. She discusses her longstanding history of constipation and abdominal bloating/cramping. Recent renal imaging results reviewed with the patient. 01/01 bilateral kidneys with no lesions, hydronephrosis, and or renal calculi. She discusses her upcoming appointment with her PCP. Discussed the importance of drinking adequate amount of fluid daily for UTI prevention as well as for renal stones. When asked patient denies urinary urgency, urinary frequency, incontinence, nocturia, hematuria, dysuria, foul smelling urine, changes to urinary stream, flank pain, fever, and or chills. In office urinalysis results reviewed with the patient today. PVR 0ml's. She denies any other issues or concerns at this time. 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 Father No problems noted. Sister Lymphoma Sister Dementia Sister Substance abuse Social History Housing: House Alcohol intake: never Patient Tobacco Use Status: Never used Tobacco e-Cigarette/Vaping Use: Never Used Second Hand Smoke Exposure: No service: No Current occupational status: retired Cognitive needs: No Hearing needs: No Vision needs: Yes Review of Systems Const Reports no additional complaints Eyes Reports no additional complaints ENT Reports no additional complaints Card Reports as per HPI Resp Reports as per HPI GI Reports as per HPI Reports as per HPI Musc Reports as per HPI Skin/Breast Reports as per HPI Neuro Reports no additional complaints Psych Reports no additional complaints Endo Reports no additional complaints Vin/Lymph Details: patient reports a history of breast cancer Physical Exam Const General: cooperative, healthy appearing, comfortable, no acute distress, well developed, alert and awake Nutritional Appearance: thin Orientation/consciousness: patient oriented x3 Limitations: no limitations HEENT Head: Yes normal to inspection, Yes normocephalic and Yes atraumatic Ears: hearing grossly normal bilaterally Eyes General: appearance normal, both eyes and all related structures Neck Neck: Yes normal visual inspection and Yes trachea midline Chest Chest palpation & inspection: normal inspection of the chest Resp Effort & Inspection: normal respiratory effort and able to speak in complete sentences Cardio Rate: regular rate GI Inspection: Yes normal to inspection General: Yes no CVA tenderness Back/Spine/Pelvis Back: no CVA tenderness Skin General skin exam: no rashes or lesions noted Neuro General: patient oriented x3 Extrem General: Yes normal to inspection Psych Appearance: grossly normal and well kempt Mental Status: mental status grossly normal Speech and movement: Normal speech and movement present and Clear speech present Affect: normal affect Attitude: cooperative Thought process: Normal thought process present Thought content: Normal thought content present Insight: Fair insight present (Psych) Judgement: Fair judgement present (Psych) Office Procedures Post Void Residual Post Residual Void Post Void Residual (PVR): 0 19118-Rhch Void Residual by ultrasound Results AMB Urinalysis, Automated UA Leukoctes 0 Panfilo/uL Last Edit by Darin Healy on 03/02/24 09:46 UA Nitrite Last Edit by MayankCasualingsarah Lopezabrahan on 03/02/24 09:46 UA Urobilinogen 0.2 mg/dL Last Edit by MayankCasualingsarah Lopezabrahan on 03/02/24 09:46 UA Protein 15 mg/dL Last Edit by MayankCasualingsarah Lopezabrahan on 03/02/24 09:46 UA pH 5.5 Last Edit by Adapxsarah Lopezabrahan on 03/02/24 09:46 UA Blood 25 Jose/uL Last Edit by Adapxsarah Lopezabrahan on 03/02/24 09:46 UA Specific [place] 1.025 Last Edit by [employer] Jessicaabrahan on 03/02/24 09:46 UA Ketone Last Edit by [employer] Jessicaabrahan on 03/02/24 09:46 UA Bilirubin 0 mg/dL Last Edit by [email or web address] Jessicaabrahan on 03/02/24 09:46 UA Glucose 0 mg/dL Last Edit by [employer] on 03/02/24 09:46 Results Reviewed Results Reviewed: Laboratory Last Values Urine pH (Auto) 5.5 03/02/24 09:45 Specific [place] (Auto) 1.025 03/02/24 09:45 Urine Protein (Auto) 15 mg/dL 03/02/24 09:45 Glucose (UA)(Auto) 0 mg/dL 03/02/24 09:45 Urine Blood (Auto) 25 Jose/uL 03/02/24 09:45 Urine Bilirubin (Auto) 0 mg/dL 01/23/25 09:45 Urine Urobilinogen (Auto) 0.2 mg/dL 03/02/24 09:45 Leukocyte Esterase (Auto) 0 Panfilo/uL 03/02/24 09:45 Date of Service: 12/15/23 EXAMINATION: US RETROPERITONEAL LIMITED (RENAL ONLY) FINDINGS: RIGHT KIDNEY: 10.1 x 3.7 x 3.9 cm (SAG x AP x TRV). The kidney is normal in size, contour, and echogenicity. Renal cortical thickness is normal. No calculi or focal parenchymal lesions. No hydronephrosis. LEFT KIDNEY: 9.3 x 4.5 x 4.3 cm (SAG x AP x TRV). Limited visualization secondary to ribs and bowel gas. The kidney is normal in size, contour, and echogenicity. Renal cortical thickness is normal. No calculi or focal parenchymal lesions. No hydronephrosis. Incidental note made of a hyperechoic liver consistent with steatosis. Also noted is a large shadowing gallstone. IMPRESSION: 1. Normal-appearing kidneys. Somewhat limited visualization on the left. 2. Incidentally noted hepatic steatosis and cholelithiasis. Assessment & Plan Assessment & Plan (1) Nephrolithiasis: Comment: 10/2023Nonobstructing 3 mm right renal calculus. 2. Tiny echogenic focus in the left renal cortex which has appearances of a benign angiomyolipoma. A follow-up ultrasound is recommended in one year's time to document stability. 3. Incidentally noted hepatic steatosis. Code(s): N20.0 - Calculus of kidney Category: Medical (2) Recurrent UTI: Code(s): N39.0 - Urinary tract infection, site not specified Category: Medical Plan In office urinalysis results reviewed with the patient today; as noted above. PVR 0 mL. Patient currently denies any bothersome urinary issues or concerns. She reports be happy with current voiding parameters. Recent renal imaging results reviewed the patient today; as noted above. Discussed UTI prevention with D mannose supplement, vitamin-C, increasing fluid intake, behavioral therapy with timed voiding, perineal hygiene and postcoital voiding, and management of constipation with stool softeners and increased fiber intake. Continue to follow-up with PCP as planned. Will obtain renal ultrasound in 6 months. Follow-up in 6 months with imaging to be completed prior; or sooner with any issues, concerns, and or questions. Orders: Orders AMB Urinalysis Automated Today Z13.9 - Encounter for screening, unspecified AMB Post Void Residual by ultrasound Today N39.0 - Urinary tract infection, site not specified Patient Instructions: The patient had an opportunity to ask questions regarding the treatment plan. All questions were answered. Physical exam, labs, and imaging were discussed and reviewed in detail. As well as risks, benefits, and discussion of treatment choices. No major barriers to understanding were identified. The patient expressed understanding and agreement with the above treatment plan. The patient was made aware they should contact our office by phone for worsening of their current condition, the appearance of new symptoms, or with any questions or concerns. Compliance is encouraged with any medications and follow up testing that is ordered. It is a privilege to be allowed the opportunity to participate in? your urological care.? Again, if you have any questions or concerns If you have any questions or concerns please do not hesitate to contact me. The office is [phone]. This note is constructed using voice recognition software. While every effort has been made to ensure accuracy repair electric motor assembler errors may have been included. Yours sincerely, NIRAJ Antony Coding Level of Care Code Est Pt Level 3 (17449) Diagnoses Nephrolithiasis N20.0 Recurrent UTI N39.0 CPT Codes Post Residual Void - PVR CPT Code: 55714-Qbcl Void Residual by ultrasound ([id number])
== END 2024-03-02 09:36 | disposition home or self-care (01) ==
PROVIDERS: PCP Internal Medicine; Visit Provider Nurse Practitioner Family
DX: N20.0 Calculus of kidney (principal); N39.0 Urinary tract infection, site not specified; Z13.9 Encounter for screening, unspecified
CPT/HCPCS: 99213

== ENCOUNTER → 2024-03-02 08:28 | Outpatient (BNVA) | payer MEDICARE, SELFPAY | PROVIDERS: PCP Internal Medicine; Visit Provider Nurse Practitioner Family | DX: N20.0 Calculus of kidney (principal); N39.0 Urinary tract infection, site not specified | CPT/HCPCS: 51798; 81003; 99212 ==

== ENCOUNTER 2024-04-28 09:24 | Outpatient (AMB) | payer MEDICARE, SELFPAY ==
--- NOTE | 2024-04-28 09:25 | A.OFFPC_ITS ---
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 Accompanied by: Self / Same As Patient Allergies amoxicillin [AMOXICILLIN] Allergy (Intermediate, Verified 04/28/24 09:50) RASH penicillin V Allergy (Intermediate, Verified 04/28/24 09:50) rash Penicillins [PENICILLINS] Allergy (Intermediate, Verified 04/28/24 09:50) RASH Sulfa (Sulfonamide Antibiotics) [SULFA(SULFONAMIDE ANTIBIOTICS)] Allergy (Inter mediate, Verified 04/28/24 09:50) RASH simvastatin [SIMVASTATIN] Allergy (Unknown, Verified 04/28/24 09:50) DIZZINESS sulfamethoxazole [From BACTRIM] Allergy (Unknown, Verified 04/28/24 09:50) RASH trimethoprim [From BACTRIM] Allergy (Unknown, Verified 04/28/24 09:50) RASH Medication List - Last Reconciled 04/28/24 by Benita Green PA-C albuterol sulfate 90 mcg/actuation 2 puffs PO Q4H PRN Tobacco use date assessed: 04/28/24 Fall risk assessment: No Falls in past year Last assessed Fall Risk: 04/28/24 Dental Screening Dental Screen Date: 04/28/24 Did you have a dental visit in the last 12 months?: Yes Did you have a dental problem in the last 6 months where you did not have access to dental care?: No Was dental information given to patient?: Patient has dentist [facility], [facility]–1983 Medical History (Updated 04/28/24 @ 10:05 by Benita Green PA-C) General medical exam Sinusitis Impaired glucose tolerance Osteopenia Hypercholesterolemia Atrophic vaginitis Mixed incontinence urge and stress GERD (gastroesophageal reflux disease) Breast cancer 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 Father No problems noted. Sister Lymphoma Sister Dementia Sister Substance abuse Social History Housing: House Alcohol intake: never Patient Tobacco Use Status: Never used Tobacco e-Cigarette/Vaping Use: Never Used Second Hand Smoke Exposure: No service: No Current occupational status: retired Cognitive needs: No Hearing needs: No Vision needs: Yes Questionnaire Thrive Questionnaire Date Thrive assessed: 08/20/21 EDY-7 AMB Questionnaire EDY-7 Date EDY - 7 assessed: 08/24/22 Source: Developed by Drs. Donn Storm, Génesis Edwards, Petros Woodard and colleagues, with an educational regla from [employer]. Physical exam (Primary Care) Tobacco/Smoking Status: Tobacco use Status Tobacco use date assessed 04/28/24 04/28/24 09:28 Patient Tobacco Use Status Never used Tobacco 04/28/24 09:28 e-Cigarette/Vaping Use Never Used 04/28/24 09:28 Thrive Assessment: Date of Thrive Assessment Date Thrive assessed 08/20/21 04/28/24 09:28 Telehealth Telehealth Telehealth Platform: [facility] Location of provider rendering services: practice address Location of patient: address on file Patient Identification confirmed using: Name, : Yes Telehealth method: voice only Patient verbally consented to treatment: Yes Patient verbally consented to billing insurance company: Yes Patient informed of any privacy concerns related to visit: Yes Minutes spent on Phone/Video with Pt.: 20 Coding Level of Care Code Tele Est Pt Level 4 (66913) Complex EM visit Add On G2211 Diagnoses Sinusitis J32.9 Mild intermittent asthma without complication J45.20 Asthma severity: mild Asthma persistence: intermittent Asthma complication type: uncomplicated Weight loss R63.4 Assessment & Plan Assessment & Plan (1) Sinusitis: Code(s): J32.9 - Chronic sinusitis, unspecified Category: Medical Plan: Antibiotic treatment with Azithromycin has been initiated. Recommend analgesics for headache relief and bpjx-lso-bgihgye decongestants for congestion management. (2) Asthma: Code(s): J45.909 - Unspecified asthma, uncomplicated Category: Medical Qualifiers: Asthma severity: mild Asthma persistence: intermittent Asthma complication type: uncomplicated Qualified Code(s): J45.20 - Mild intermittent asthma, uncomplicated Plan: Monitor for symptoms. Prednisone therapy is available if wheezing occurs, although no immediate exacerbation is noted. Condition is chronic and stable. (3) Weight loss: Comment: s/p cholecycystectomy Code(s): R63.4 - Abnormal weight loss Category: Medical Plan: Fasting blood work is advised to identify potential nutritional deficits. Follow-up with Dr. Nazario is arranged for comprehensive review and potential ongoing management. Plan Plan Patient was informed and verbally consented to the use of an ambient scribe for clinic note documentation during this visit. 1. Asthma Monitor for symptoms. Prednisone therapy is available if wheezing occurs, although no immediate exacerbation is noted. 2. Sinusitis Antibiotic treatment with Azithromycin has been initiated. Recommend analgesics for headache relief and rhto-oyo-wsntrjl decongestants for congestion management. 3. Post-Cholecystectomy And Weight Loss Fasting blood work is advised to identify potential nutritional deficits. Follow-up with Dr. Nazario is arranged for comprehensive review and potential ongoing management. Discussion Notes I discussed with the patient her diagnosis of sinusitis and the recommended treatment plan, which includes Azithromycin, decongestants, and analgesics. Risks and benefits of these medications were addressed, including alleviation of congestion and prevention of potential secondary complications. For her asthma, although not actively symptomatic, prednisone was discussed as an option should symptoms arise. In terms of her recent gallbladder surgery and associated weight loss, fasting blood work will help assess nutritional status, particularly magnesium and vitamin levels. We discussed the benefit of addressing nutritional deficiencies to prevent further unintended weight loss. The patient was advised to follow up with Dr. Nazario for detailed evaluation and management. Orders: Orders Hemoglobin A1c Today Z00.00 - Encounter for general adult medical examination without abnormal findings Liver Panel Today Z00.00 - Encounter for general adult medical examination without abnormal findings Magnesium Today Z00.00 - Encounter for general adult medical examination without abnormal findings Vitamin B1 Today Z00.00 - Encounter for general adult medical examination without abnormal findings Vitamin B12 and Folate Today Z00.00 - Encounter for general adult medical examination without abnormal findings Vitamin D 25-OH Total Today Z00.00 - Encounter for general adult medical examination without abnormal findings Phosphorus Today Z00.00 - Encounter for general adult medical examination without abnormal findings Comprehensive Howe. Panel Fast Today Z00.00 - Encounter for general adult medical examination without abnormal findings Complete Blood Count Auto Diff Today Z00.00 - Encounter for general adult medical examination without abnormal findings Erythrocyte Sedimentation Rate Today Z00.00 - Encounter for general adult medical examination without abnormal findings Lipid Panel Today Z00.00 - Encounter for general adult medical examination without abnormal findings Zinc Today Z00.00 - Encounter for general adult medical examination without abnormal findings Parathyroid Hormone Intact Today Z00.00 - Encounter for general adult medical examination without abnormal findings C Reactive Protein Today Z00.00 - Encounter for general adult medical examination without abnormal findings TSH reflex Free T4 Today Z00.00 - Encounter for general adult medical examination without abnormal findings Vitamin A Today Z00.00 - Encounter for general adult medical examination without abnormal findings Medications: New azithromycin For 250 mg dose pack: take 500 mg today (day 1), then 250 mg for 4 days (days 2-5) PO 6 tabs 0RF Patient Instructions: Patient Instructions - Start the prescribed Azithromycin (Z-Moustapha) as directed. - Use akzc-wgv-iarmnlb medications like Mucinex, Sudafed, or Claritin-D for congestion. - Manage headaches with Tylenol or Motrin as needed. - Complete fasting blood work to assess for deficiencies. - Monitor for asthma symptoms and use prescribed prednisone if wheezing develops. - Schedule a follow-up appointment with Dr. Nazario to discuss ongoing management of weight loss and nutritional assessment. - Seek medical attention if symptoms worsen or if new symptoms arise. Scribe Plan - Not visible on output: History of Present Illness The patient is a 68-year-old female presenting with sinusitis. The symptoms initiated over the weekend, characterized mainly by nasal congestion and a dry cough. There is no reported fever, and she denies experiencing chest pain, dyspnea, or wheezing, despite her history of asthma. No exposure to others with similar respiratory symptoms nor recent travel was noted. Current management involves using uoze-avu-dcggldb analgesics and decongestants. Further medical history includes significant weight loss following a recent cholecystectomy. The patient is concerned about nutritional deficits and has agreed to perform fasting blood tests, checking for potential deficiencies including magnesium and vitamin levels. There is a plan to follow up with Dr. Nazario for a comprehensive review. Review of Systems - Respiratory: Denies shortness of breath, denies wheezing. - General: Denies fever.
== END 2024-04-28 10:06 | disposition home or self-care (01) ==
LOC: HO.HMCH 09:24
PROVIDERS: PCP Internal Medicine; Visit Provider Physician Assistant Medical
DX: J32.9 Chronic sinusitis, unspecified (principal); J45.20 Mild intermittent asthma, uncomplicated; R63.4 Abnormal weight loss

== ENCOUNTER → 2024-04-28 09:24 | Outpatient (BNVA) | payer MEDICARE, SELFPAY | PROVIDERS: PCP Internal Medicine; Visit Provider Physician Assistant Medical ==

== ENCOUNTER 2024-05-08 07:52 | Outpatient (REF) | payer MEDICARE, SELFPAY ==
[2024-05-08 08:14] LABS: MANUAL DIFF FLAG NO
[2024-05-08 08:58] LABS: Basophils Absolute Auto 0.1 X10*3/uL (0.0-0.2); Basophils Percent Auto 1.1 % (0-2); Eosinophils Absolute Auto 0.2 X10*3/uL (0.0-0.4); Eosinophils Percent Auto 3.4 % (0-4); Hemoglobin 12.3 g/dl (12.0-16.0); Imm Gran Abs Auto 0.02 X10*3/uL (0.00-0.03); Imm Gran Pct Auto 0.3 % (0.0-0.4); Lymphocytes Absolute Auto 2.4 X10*3/uL (1.2-4.9); Mean Corpuscular HGB Conc 31.5 g/dl (31.0-35.0); Mean Corpuscular Hemoglobin 26.5 pg (27.0-33.0); Mean Corpuscular Volume 83.9 fL (80.0-98.0); Mean Platelet Volume 12.2 fL (9.4-12.3); Monocytes Absolute Auto 0.5 X10*3/uL (0.1-1.2); Neutrophils Absolute Auto 3.7 x10*3/uL (2.0-8.3); Neutrophils Percent Auto 53.2 % (45-73); Platelet Count 220 X10*3/uL (160-400); Red Blood Count 4.65 X10*6/uL (4.20-5.50); Red Cell Distribution Width 14.5 % (11.0-16.0)
[2024-05-08 09:05] LABS: Appearance Urine Clear; Color Urine Yellow; Glucose Urine UA Negative (Negative); Leukocyte Esterase Urine Trace (Negative); Nitrite Urine Negative (Negative); PH 5.5 (5.0-9.0); Specific Gravity - Urine 1.015 (1.005-1.025); UMIC TRIGGER UACC YES; Urine Blood Trace (Negative); Urine Ketones Negative (Negative); Urine Protein Negative (Neg-Trace)
[2024-05-08 09:10] LABS: Bacteria Urine None Seen (None Seen); Hyaline Casts Urine 0-2 /LPF (0-2); RBC Urine 0-2 /HPF (0-2); Squamous Epithelial Cell Urine 0-2 /HPF (0-2); WBC Urine 0-5 /HPF (0-5)
[2024-05-08 09:17] LABS: Estimated Average Glucose 126 mg/dL; Hemoglobin A1C 136.9248 umol/L
[2024-05-08 09:46] LABS: Alanine Aminotransferase 25 U/L (0-31); Alkaline Phosphatase 90 U/L (39-117); Anion Gap 12 (12-20); Aspartate Amino Transferase 29 U/L (5-31); Bilirubin Direct 0.1 mg/dL (0.0-0.5); Bilirubin Total 0.4 mg/dL (0.0-1.0); Blood Urea Nitrogen 16 mg/dL (9-16); Carbon Dioxide 25 mmol/L (22-29); Chloride 109 mmol/L (96-108); Cholesterol 166 mg/dL (<200); Estimated Glomerular Filt Rate > 60; Glucose Fasting 92 mg/dL (60-99); HDL Cholesterol 36 mg/dL (>40); LDL Cholesterol Calculated 110 mg/dL (<100); Magnesium 2.1 mg/dL (1.6-2.6); Phosphorus 3.3 mg/dL (2.7-4.5); Potassium 4.2 mmol/L (3.3-5.1); Sodium 142 mmol/L (135-145); Total Protein 7.6 g/dL (6.5-8.0); Triglycerides 104 mg/dL (<150)
[2024-05-08 09:48] LABS: Erythrocyte Sedimentation Rate 22 MM/HR (0-20)
[2024-05-08 10:01] LABS: TSH reflex Free T4 1.15 uIU/mL (0.32-4.0); Vitamin D 25-OH Total 35.1 ng/mL (>30)
[2024-05-08 10:15] LABS: Folate 8.8 ng/mL (> or = 4.0); Vitamin B12 468 pg/mL (200-900)
[2024-05-08 10:54] LABS: Parathyroid Hormone Intact 83.7 pg/mL (8.7-77.1)
[2024-05-11 12:44] LABS: Zinc 66 mcg/dL (60-130)
[2024-05-11 20:39] LABS: Vitamin A 43 mcg/dL (38-98)
[2024-05-16 14:58] LABS: Vitamin B1 15 nmol/L (8-30)
== END 2024-05-08 07:53 | disposition home or self-care (01) ==
LOC: HO.LAB 07:52
PROVIDERS: PCP Internal Medicine; Visit Provider Physician Assistant Medical
DX: Z00.00 Encounter for general adult medical examination without abnormal findings (principal); Z13.1 Encounter for screening for diabetes mellitus; Z13.0 Encounter for screening for diseases of the blood and blood-forming organs and certain disorders involving the immune mechanism; Z13.220 Encounter for screening for lipoid disorders; Z13.228 Encounter for screening for other metabolic disorders; Z13.29 Encounter for screening for other suspected endocrine disorder; Z13.9 Encounter for screening, unspecified
CPT/HCPCS: 36415; 80053; 80061; 80076; 81001; 81003; 82248; 82306; 82607; 82746; 83036; 83735; 83970; 84100; 84425; 84443; 84590; 84630; 85025; 85652; 86140

== ENCOUNTER 2024-05-09 13:00 | Outpatient (AMB) | payer MEDICARE, SELFPAY ==
--- NOTE | 2024-05-09 13:03 | MHC.PC.OV ---
Vital Signs 05/09/24 13:05 Height 5 ft 2 in Weight 104 lb 8 oz BMI 19.1 BP 108/60 Blood Pressure Location Lt brachial Position Sitting Pulse 80 Pulse Source Pulse Oximeter Temp 97.3 F Temp Source Temporal Artery Scan Pulse Oximetry (%) 99 Oxygen Delivery Method Room Air Intake Visit Reasons: Multiple concerns Intake Note: Patient is here to follow up on Multiple concerns. Story Editor Required: No Truck Driver Instructor: Not Required per policy Accompanied by: Self / Same As Patient Allergies amoxicillin [AMOXICILLIN] Allergy (Intermediate, Verified 05/09/24 13:05) RASH penicillin V Allergy (Intermediate, Verified 05/09/24 13:05) rash Penicillins [PENICILLINS] Allergy (Intermediate, Verified 05/09/24 13:05) RASH Sulfa (Sulfonamide Antibiotics) [SULFA(SULFONAMIDE ANTIBIOTICS)] Allergy (Intermediate, Verified 05/09/24 13:05) RASH simvastatin [SIMVASTATIN] Allergy (Unknown, Verified 05/09/24 13:05) DIZZINESS sulfamethoxazole [From BACTRIM] Allergy (Unknown, Verified 05/09/24 13:05) RASH trimethoprim [From BACTRIM] Allergy (Unknown, Verified 05/09/24 13:05) RASH Tobacco use date assessed: 05/09/24 Fall risk assessment: No Falls in past year Last assessed Fall Risk: 05/09/24 Dental Screening Dental Screen Date: 04/28/24 [facility] Medical History (Updated 05/09/24 @ 13:54 by Andriy Nazario MD) General medical exam Sinusitis Impaired glucose tolerance Osteopenia Hypercholesterolemia Atrophic vaginitis Mixed incontinence urge and stress GERD (gastroesophageal reflux disease) Breast cancer 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 Father No problems noted. Sister Lymphoma Sister Dementia Sister Substance abuse Social History Housing: House Alcohol intake: never Patient Tobacco Use Status: Never used Tobacco e-Cigarette/Vaping Use: Never Used Second Hand Smoke Exposure: No service: No Current occupational status: retired Cognitive needs: No Hearing needs: No Vision needs: Yes Questionnaire PHQ-9 Over the last 2 weeks, how often have you been bothered by any of the following problems? 1. Little interest or pleasure in doing things: not at all 2. Feeling down, depressed, or hopeless: not at all 3. Trouble falling or staying asleep, or sleeping too much: not at all 4. Feeling tired or having little energy: not at all 5. Poor appetite or overeating: not at all 6. Feeling bad about yourself - or that you are a failure or have let yourself or your family down: not at all 7. Trouble concentrating on things, such as reading the newspaper or watching television: not at all 8. Moving or speaking so slowly that other people could have noticed. Or the opposite - being so fidgety or restless that you have been moving around a lot more than usual: not at all 9. Thoughts that you would be better off or of hurting yourself in some way: not at all Total score: 0 Depression Screening Interpretation: Negative Depression Screening Done: Yes Source: Developed by Drs. Donn Storm, Génesis Edwards, Petros Woodard and colleagues, with an educational regla from [employer]. Thrive Questionnaire Date Thrive assessed: 05/09/24 I am a: Patient What is your living situation today?: I have a steady place to live Within the past 12 months, did the food you bought not last and you didn't have the money to get more?: Never true Within the past 12 months, did you worry whether your food would run out before you got money to buy more?: Never true Do you have trouble paying for medicines?: No Do you have trouble getting transportation to medical appointments?: No Do you have trouble paying your heating and electricity bill?: No Do you have trouble taking care of your child, family member or friend?: No Do you have trouble with day-to-day activities such as bathing, preparing meals, shopping, managing finances, etc.?: No Are you currently unemployed and looking for a job?: No Are you interested in more education?: No Please select the resources that you would like help with: None Currently or been in a relationship where the following occur: No concerns reported THRIVE Score: 0 AUDIT C Alcohol Use Questionnaire (AUDIT-C) 1. How often do you have a drink containing alcohol?: Never Total Score: 0 EDY-7 AMB Questionnaire EDY-7 Date EDY - 7 assessed: 05/09/24 Feeling nervous, anxious, or on edge: 0 = Not at all Not being able to stop or control worryin = Not at all Worrying too much about different things: 0 = Not at all Trouble relaxin = Not at all Being so restless that it is hard to sit still: 0 = Not at all Becoming easily annoyed or irritable: 0 = Not at all Feeling afraid as if something awful might happen: 0 = Not at all Total EDY-7 score (0-4 normal; 5-9 mild; 10-14 moderate; 15-21 severe): 0 Source: Developed by Drs. Donn Storm, Génesis Edwards, Petros Woodard and colleagues, with an educational regla from [employer]. Physical exam (Primary Care) Vital Signs: Last Vital Signs Temp 97.3 F 05/09/24 13:05 Pulse 80 05/09/24 13:05 BP 108/60 05/09/24 13:05 Pulse Ox 99 05/09/24 13:05 Oxygen Delivery Method Room Air 05/09/24 13:05 BMI result Body Mass Index 19.1 Tobacco/Smoking Status: Tobacco use Status Tobacco use date assessed 05/09/24 05/09/24 13:09 Patient Tobacco Use Status Never used Tobacco 05/09/24 13:09 e-Cigarette/Vaping Use Never Used 05/09/24 13:09 PHQ-9: PHQ-9 Score PHQ-9: Total score 0 05/09/24 13:09 Depression Screening Interpretation: Negative Thrive Assessment: Date of Thrive Assessment Date Thrive assessed 05/09/24 05/09/24 13:09 Currently or been in a relationship where the following occur: No concerns reported Const General: alert; No acute distress Eyes Conjunctivae: conjunctivae normal Resp Auscultation: clear to auscultation bilaterally Cardio Rate: regular rate Rhythm: regular rhythm GI Inspection: Yes normal to inspection Extrem General: Yes normal to inspection and No edema Coding Level of Care Code Est Pt Level 4 (06179) Complex EM visit Add On G2211 Diagnoses Left renal mass N28.89 Hepatic steatosis K76.0 Type 2 diabetes mellitus with hyperglycemia E11.65 Nephrolithiasis N20.0 Age-related osteoporosis without current pathological fracture M81.0 Weight loss R63.4 Generalized anxiety disorder F41.1 Bilateral malignant neoplasm of breast in female, unspecified estrogen receptor status, unspecified site of breast C50.911; C50.912 Breast location: unspecified site of breast Estrogen receptor status: unspecified Patient sex: female Laterality: bilateral Hypercholesterolemia E78.00 Gastroesophageal reflux disease without esophagitis K21.9 Esophagitis presence: without esophagitis Dysphagia R13.10 Assessment & Plan Assessment & Plan (1) Left renal mass: Comment: 10/2023Nonobstructing 3 mm right renal calculus. 2. Tiny echogenic focus in the left renal cortex which has appearances of a benign angiomyolipoma. A follow-up ultrasound is recommended in one year's time to document stability. 3. Incidentally noted hepatic steatosis. Code(s): N28.89 - Other specified disorders of kidney and ureter Category: Medical Plan: Patient had an ultrasound of the kidneys noted to have a left renal cortex angiomyolipoma which needs to be followed up in October 2024 (2) Hepatic steatosis: Comment: December 2023 Code(s): K76.0 - Fatty (change of) liver, not elsewhere classified Category: Medical Plan: Low-fat diet and exercise (3) Type 2 diabetes mellitus with hyperglycemia: Code(s): E11.65 - Type 2 diabetes mellitus with hyperglycemia Category: Medical Plan: Decrease the amount of carbohydrate intake, pasta, bread, rice and potatoes are all sugar and that is aside from all the sweet stuff, remember that fruits are good but they are Sweet also. Hemoglobin A1c is controlled goal of less than 7 (4) Nephrolithiasis: Comment: 10/2023Nonobstructing 3 mm right renal calculus. 2. Tiny echogenic focus in the left renal cortex which has appearances of a benign angiomyolipoma. A follow-up ultrasound is recommended in one year's time to document stability. 3. Incidentally noted hepatic steatosis. Code(s): N20.0 - Calculus of kidney Category: Medical Plan: Increase oral fluids (5) Age-related osteoporosis without current pathological fracture: Comment: October 2021 Code(s): M81.0 - Age-related osteoporosis without current pathological fracture Category: Medical Plan: Bone density up-to-date does have osteoporosis (6) Weight loss: Comment: s/p cholecycystectomy Code(s): R63.4 - Abnormal weight loss Category: Medical (7) Generalized anxiety disorder: Code(s): F41.1 - Generalized anxiety disorder Category: Medical Plan: Stable (8) Breast cancer: Comment: DCIS breast [address] stein mammogram October 2021 Code(s): C50.919 - Malignant neoplasm of unspecified site of unspecified female breast Category: Medical Qualifiers: Breast location: unspecified site of breast Estrogen receptor status: unspecified Patient sex: female Laterality: bilateral Qualified Code(s): C50.911 - Malignant neoplasm of unspecified site of right female breast; C50.912 - Malignant neoplasm of unspecified site of left female breast Plan: Patient is up-to-date with mammogram (9) Hypercholesterolemia: Code(s): E78.00 - Pure hypercholesterolemia, unspecified Category: Medical Plan: Avoid fried foods, chicken skin, eggs, butter margarine, pastries and meat. Be it pork or beef they have a lot of cholesterol (10) GERD (gastroesophageal reflux disease): Code(s): K21.9 - Gastro-esophageal reflux disease without esophagitis Category: Medical Qualifiers: Esophagitis presence: without esophagitis Qualified Code(s): K21.9 - Gastro-esophageal reflux disease without esophagitis Plan: Avoid the foods that causes that usually spicy foods, tomato products, juices, coffee, soda and foods that your sensitive to. After eating do not lie down, allow 3-4 hours before in lie down. And keep the head of bed above 30 degrees to avoid the acid from going up. (11) Dysphagia: Code(s): R13.10 - Dysphagia, unspecified Category: Medical Plan History of Present Illness The patient is a 69-year-old female presenting with symptoms of unexplained weight loss and gastrointestinal discomfort, specifically cramping and excess gas. She has experienced a 13-pound weight loss over an unspecified period, along with difficulty digesting foods causing significant dietary modifications. While she denies experiencing diarrhea, she reports occasional swallowing difficulties resolved by drinking water, and experiences alternating constipation and normal bowel movements. Her past medical history includes notable chronic conditions such as Gastroesophageal Reflux Disease, hypercholesterolemia, and diabetes mellitus with a well-managed hemoglobin A1c of 6.0. An ultrasound has identified hepatic steatosis and a benign angiomyolipoma on the left renal cortex. She has a history of breast cancer and osteoporosis, both of which are currently stable. The patient is also managing stress urinary incontinence and asthma. Recent bloodwork and imaging have largely shown normal results aside from mild concerns regarding cholesterol and stable kidney and liver function. Despite previous sinusitis-associated headaches, she denies current repetitive headaches. The patient's recent dietary adjustments include kombucha consumption aimed at gastrointestinal improvement, although she reports a diminished taste sensation. She expresses concern over ongoing weight loss, reminding her of post-cholecystectomy experiences, raising potential issues in nutrient absorption. Health Maintenance - Mammogram up-to-date as of November 2023 - Bone density confirmed osteoporosis, last assessed November 2023 - Colonoscopy last performed in May 2018 - Diabetic management: Hemoglobin A1c controlled at 6.0 with a target of less than 6.5 - Cholesterol management ongoing with an LDL target of less than 100, currently at 110 - Advisement for low-fat diet and regular exercise - Annual wellness examination conducted in August 2023 Social History - Reports changes in dietary habits with a focus on probiotic intake through kombucha - Experiences difficulty maintaining regular appetite and reports a diminishing enjoyment of food - Reports an active attempt to engage in dietary modification to manage existing medical conditions Review of Systems - Gastrointestinal: Reports cramping, excess gas, intermittent constipation; denies diarrhea - Neurological: Denies current frequent headaches; correlated severe headaches to past sinusitis - Respiratory: Reports manageable asthma, denies current shortness of breath - Urinary: Reports intermittent urinary discomfort, no current issues with urination frequency or incontinence - Constitutional: Reports fatigue and unexplained weight loss despite appropriate intake Physical Exam - Gastrointestinal- Examination of abdominal regions did not reveal any significant lumps or masses Results - Labs: Normal blood count, normal renal function, normal liver function, controlled hemoglobin A1c at 6.0, elevated LDL at 110 - Ultrasound: 3 mm right renal calculus, benign left renal cortex angiomyolipoma Plan The patient expressed concerns regarding her ongoing weight loss and gastrointestinal issues, and we have scheduled additional diagnostic testing, including a swallowing study and chest x-ray, to investigate these symptoms. A follow-up ultrasound of the kidneys will occur in October 2024 to monitor the benign angiomyolipoma. We will continue dietary modifications to manage hepatic steatosis and maintain satisfactory glucose control without immediate medication adjustment for diabetes. Hypercholesterolemia management will focus on lifestyle interventions to improve LDL levels, and osteoporosis will require ongoing observation. Further endocrinological assessment may be considered if weight loss persists. Patient was informed and verbally consented to the use of an ambient scribe for clinic note documentation during this visit. Discussion Notes We thoroughly discussed the patient's symptomatology related to weight loss and gastrointestinal disturbances. I emphasized the importance of further diagnostic imaging, specifically a swallowing study and chest x-ray, to elucidate potential underlying causes. We consented to the planned repetition of kidney ultrasounds to monitor identified benign growths. The risks and benefits of lifestyle modifications for managing hepatic steatosis and hypercholesterolemia were outlined, with an agreement on regular activity and dietary adherence. The importance of regular follow-up to ensure osteoporosis stability and to reevaluate weight concerns was reinforced. Patient Instructions - Continue a low-fat diet and regular exercise to manage hepatic steatosis - Increase oral fluid intake to assist with symptoms of occasional swallowing difficulty - Schedule and complete upcoming imaging studies, including a chest x-ray and follow-up kidney ultrasound - Monitor and record any new gastrointestinal or weight-related symptoms - Maintain routine endocrinology visits for continued evaluation - Report any new or worsening symptoms promptly Orders: Orders FL barium swallow Today R13.10 - Dysphagia, unspecified XR chest 2V Today R63.4 - Abnormal weight loss FL upper GI series Today R13.10 - Dysphagia, unspecified
[2024-05-09 13:05] VITALS: BP 108/60; PULSE 80; TEMP 36.3; O2SAT 99; BMI 19.1
--- OUTSIDE RECORDS SUMMARY | 2024-05-09 15:12 | XMS_ITS | Patient Health Record ---
[facility] Address [address] [facility] [place] [address] Care Team Providers Care Director Marketing Analytics Name Role Phone Andriy Nazario Primary Care Provider Jazmín Santana Unavailable [phone] Allergies Allergen (clinical drug ingredient) Drug/Non Drug [...] (substance) Sulfa Antibiotics rash Drug Allergy Active Reason For Referral No Information Medications Medication SIG (Take, Route, Frequency, Duration) Notes Start Date End Date Status Ciclopirox Olamine 0.77 % 1 application Externally Twice a day for 30 days Active Albuterol Sulfate HFA 108 [...] Signs Height 5 ft 2 in in 08/24/2023 Weight 130 lbs 08/24/2023 BMI 23.77 kg/m2 08/24/2023 Encounters Encounter Location Date Provider Diagnosis [facility] [address] [place] [address] 08/24/2023 Jazmín Summers Fungal infection of nail B35.1 ; Pain in right toe(s) M79.674 and Tinea pedis of both feet B35.[address] [address] 05/11/2023 Jazmín Perica [facility] [address] [address] 08/24/2023 Jazmín Perica [facility] [address] 08/24/2023 Jazmín Perica [facility] [address] 03/02/2024 Jazmín Summers Assessments Encounter Date Diagnosis (ICD Code) Assessment Notes Treatment Notes Treatment Clinical Notes Section Notes 08/24/2023 Pain in right toe(s) (ICD-10 - M79.674) 08/24/2023 Fungal infection of nail (ICD-10 - B35.1) Rx management (4) 08/24/2023 Tinea pedis of both feet (ICD-10 - B35.3) Plan Of Treatment No Information Insurance Providers Payer Name Payer Address Payer Phone Subscriber Number Group Number Insured Name Patient Relationship to Insured Coverage Start Date Coverage End Date Medicare National [employer] [address] [place] [address] [id number] Berta Aguilar Self - patient is the insured [employer] [address] [place] [address] [phone] [id number] Berta Aguilar Self - patient is the insured Medical (General) History Medical History History ICD Code asthma breast cancer 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
--- OUTSIDE RECORDS SUMMARY | 2024-05-09 15:12 | XMS_ITS ---
Author Organization [facility] Address [address] [place] [address] Care Team Providers Care Transportation Mechanic Name Role Phone Andriy Nazario Primary Care Provider Jazmín Santana [phone] Dorsey Medications Medication SIG (Take, Route, Frequency, Duration) Notes Start Date End Date Status Ciclopirox Olamine 0.77 % 1 application Externally Twice a day for 30 days Active Albuterol Sulfate HFA 108 (90 Base) MCG/ACT 1 puff as needed Inhalation every 4 hrs Active Encounters Encounter Location Date Provider Diagnosis [address] [address] 02/25/2024 Jazmín Summers Plan Of Treatment No Information Progress Notes * Berta AGUILAR ADOB:1955 (69 yo F)Acc No.[id number]:02/25/2024 Progress Note Patient:?Berta AGUILAR Provider:?Jazmín Summers DPM :1955???Age:68 Y???Sex:Female D ate:02/25/2024 Address:[address] [place] [address] [id number] Pcp:Andriy Nazario Subjective: * Chief Complaints: * ???1. Dr Dorsey. * Medical History:? * Medications:?Taking Albutero l Sulfate HFA 108 (90 Base) MCG/ACT Aerosol Solution 1 puff as needed Inhalation every 4 hrs , Taking Ciclopirox Olamine 0.77 % Cream 1 application Externally Twice a day Objective: * Vitals:? Assessment: Plan: * Treatment: * Images: * The named appointment provid er may or may not be the originator of this progress note, and it is not deemed complete until electronically signed by the appointment provider. Sign off status: Pending * Provider:?Jazmín Summers DPM Date:? Generated for Ludivina ahumada/Augie/Sandra on:?05/09/2024 03:12 PM EDT
--- OUTSIDE RECORDS SUMMARY | 2024-05-09 15:13 | XMS_ITS ---
Author Organization [facility] Address [address] [place] [address] Care Team Providers Care Huller Operator Name Role Phone Andriy Nazario Primary Care Provider Jazmín Santana [phone] Encounters Encounter Location Date Provider Diagnosis [facility] [address] [place] [address] 03/03/2024 Jazmín Summers Plan Of Treatment No Information Progress Notes * Berta AGUILAR ADOB:1955 (69 yo F)Acc No.[id number]:03/03/2024 Progress Note Patient:?Berta AGUILAR Provider:?Jazmín Summers DPM :1955???Age:68 Y???Sex:Female D ate:03/03/2024 Address:[address] [place], [place] [id number] Pcp:Andriy Nazario Subjective: * Chief Complaints: * ??? * Medical History:? Objective: * Vitals:? Assessment: Plan: * Treatment: * Images: * The named appointment provid er may or may not be the originator of this progress note, and it is not deemed complete until electronically signed by the appointment provider. Sign off status: Pending * Provider:?Jazmín Summers DPM Date:? Generated for Dariani zita/Augie/eTransmitting on:?05/09/2024 03:12 PM EDT
== END 2024-05-09 14:03 | disposition home or self-care (01) ==
PROVIDERS: PCP Internal Medicine; Visit Provider Internal Medicine
DX: N28.89 Other specified disorders of kidney and ureter (principal); K76.0 Fatty (change of) liver, not elsewhere classified; E11.65 Type 2 diabetes mellitus with hyperglycemia; N20.0 Calculus of kidney; M81.0 Age-related osteoporosis without current pathological fracture; R63.4 Abnormal weight loss; F41.1 Generalized anxiety disorder; C50.911 Malignant neoplasm of unspecified site of right female breast; C50.912 Malignant neoplasm of unspecified site of left female breast; E78.00 Pure hypercholesterolemia, unspecified; K21.9 Gastro-esophageal reflux disease without esophagitis; R13.10 Dysphagia, unspecified

== ENCOUNTER → 2024-05-09 13:00 | Outpatient (BNVA) | payer MEDICARE, SELFPAY | PROVIDERS: PCP Internal Medicine; Visit Provider Internal Medicine | DX: N28.89 Other specified disorders of kidney and ureter (principal); K76.0 Fatty (change of) liver, not elsewhere classified; E11.65 Type 2 diabetes mellitus with hyperglycemia; N20.0 Calculus of kidney; M81.0 Age-related osteoporosis without current pathological fracture; R63.4 Abnormal weight loss; F41.1 Generalized anxiety disorder; E78.00 Pure hypercholesterolemia, unspecified; K21.9 Gastro-esophageal reflux disease without esophagitis; R13.10 Dysphagia, unspecified | CPT/HCPCS: 99212 ==

== ENCOUNTER 2024-05-11 10:10 | Outpatient (REF) | payer MEDICARE, SELFPAY ==
--- NOTE | ~2024-05-11 | XR_ITS ---
CLINICAL HISTORY: R63.4 - Abnormal weight loss 2 view chest x-ray Comparison: None Findings: No consolidation or effusion. Heart size is normal. No acute fracture. IMPRESSION: 1. No acute findings. This document has been electronically signed by: Junior Whitney MD on 05/13/2024 07:59:01
--- OUTSIDE RECORDS SUMMARY | 2024-05-11 11:02 | XMS_ITS ---
Author Organization [facility] Address [address] [place] [address] Care Team Providers Care Set Up Mechanic Automatic Line Name Role Phone Andriy Nazario Primary Care Provider Jazmín Santana [phone] Dorsey Medications Medication SIG (Take, Route, Frequency, Duration) Notes Start Date End Date Status Ciclopirox Olamine 0.77 % 1 application Externally Twice a day for 30 days Active Albuterol Sulfate HFA 108 (90 Base) MCG/ACT 1 puff as needed Inhalation every 4 hrs Active Encounters Encounter Location Date Provider Diagnosis [address] [address] 02/25/2024 Jazmín Summers Plan Of Treatment No Information Progress Notes * Berta AGUILAR ADOB:1955 (69 yo F)Acc No.[id number]:02/25/2024 Progress Note Patient:?Berta AGUILAR Provider:?Jazmín Summers DPM :1955???Age:68 Y???Sex:Female D ate:02/25/2024 Address:[address] [place] [address] [id number] Pcp:Andriy Nazario Subjective: * Chief Complaints: * [...] Provider:?Jazmín Summers DPM Date:? Generated for Ludivina ahumada/Augie/Ciscoitting on:?05/11/2024 11:01 AM EDT
--- OUTSIDE RECORDS SUMMARY | 2024-05-11 11:02 | XMS_ITS ---
Author Organization [facility] Address [address] [place] [address] Care Team Providers Care Operations/Dispatch Name Role Phone Andriy Nazario Primary Care Provider Jazmín Santana [phone] REASON FOR VISIT cx appt 03/03/24 Encounters Encounter Location Date Provider Diagnosis [facility] [address] [place] [address] 03/02/2024 Jazmín Summers Plan Of Treatment No Information Progress Notes * Berta AGUILAR ADOB:1955 (68 yo F)Acc No.[id number]:03/02/2024 Patient:?Berta AGUILAR :1955???Age:68 Y???Sex:Female Address:[address] [place], [address] * true * Date:? Generated for Ludivina ahumada/Augie/eTransmitting on:?05/11/2024 11:01 AM EDT
--- OUTSIDE RECORDS SUMMARY | 2024-05-11 11:02 | XMS_ITS ---
Author Organization [facility] Address [address] [place] [address] Care Team Providers Care Cement Paver Name Role Phone Andriy Nazario Primary Care Provider Jazmín Santana [phone] Encounters Encounter Location Date Provider Diagnosis [facility] [address] [place] [address] 03/03/2024 Jazmín Summers Plan Of Treatment No Information Progress Notes * Berta AGUILAR ADOB:1955 (69 yo F)Acc No.[id number]:03/03/2024 Progress Note Patient:?Berta AGUILAR Provider:?Jazmín Summers DPM :1955???Age:68 Y???Sex:Female D ate:03/03/2024 Address:[address] [place], [place] [id number] Pcp:Andriy Nazario Subjective: * Chief Complaints: * ??? * Medical History:? Objective: * Vitals:? Assessment: Plan: * Treatment: * Images: * The named appointment provid er may or may not be the originator of this progress note, and it is not deemed complete until electronically signed by the appointment provider. Sign off status: Pending * Provider:?Jazmín Summers DPM Date:? Generated for Dariani zita/Augie/eTransmitting on:?05/11/2024 11:01 AM EDT
--- OUTSIDE RECORDS SUMMARY | 2024-05-11 11:02 | XMS_ITS | Patient Health Record ---
Author Organization [facility] Address [address] [place] [address] Care Team Providers Care Polymerization Engineer Name Role Phone Andriy Nazario Primary Care Provider Jazmín Santana Unavailable [phone] Allergies Allergen (clinical drug ingredient) Drug/Non Drug [...] 08/24/2023 Encounters Encounter Location Date Provider Diagnosis [facility] [address] [place] [address] 08/24/2023 Jazmín Summers Fungal infection of nail B35.1 ; Pain in right toe(s) M79.674 and Tinea pedis of both feet B35.[address] [address] 08/24/2023 Jazmín Summers [facility] [address] 08/24/2023 Jazmín Summers [address] [address] 03/02/2024 Jazmín Summers Assessments Encounter Date Diagnosis [...] [employer] [address] [place] [address] [id number] Berta Aguilar Self - patient is the insured [employer] [address] [place] [address] [id number] Berta Aguilar Self - patient is the insured Medical (General) History Medical History History ICD Code asthma breast cancer 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
== END 2024-05-11 10:11 | disposition home or self-care (01) ==
LOC: HO.XRAY 10:10
PROVIDERS: PCP Internal Medicine; Visit Provider Internal Medicine
DX: R63.4 Abnormal weight loss (principal)
CPT/HCPCS: 71046

== ENCOUNTER → 2024-05-11 10:15 | Outpatient (BNV) | payer MEDICARE, SELFPAY | PROVIDERS: PCP Internal Medicine; Visit Provider Specialist | DX: R63.4 Abnormal weight loss (principal) | CPT/HCPCS: 71046 ==

== ENCOUNTER 2024-07-14 15:29 | Outpatient (AMB) | payer MEDICARE, SELFPAY ==
--- OUTSIDE RECORDS SUMMARY | 2024-07-14 15:31 | XMS_ITS ---
Author Organization [facility] Address [address] [place] [address] Care Team Providers Care Slubber Frame Changer Name Role Phone Andriy Nazario Primary Care Provider Jazmín Santana [phone] Allergies Allergen (clinical drug ingredient) Drug/Non Drug [...] 09/14/2023 Encounters Encounter Location Date Provider Diagnosis [facility] [address] [place] [address] 09/14/2023 Jazmín Summers Plan Of Treatment No Information Progress Notes * Berta AGUILAR ADOB:1955 (69 yo F)Acc No.[id number]:09/14/2023 Progress Notes Patient:?Berta AGUILAR Provider:?Jazmín Summers DPM :1955???Age:68 Y???Sex:Female D ate:09/14/2023 Address:[address] [place] [address] [facility] Pcp:Andriy Nazario Subjective: * Chief Complaints: * ???1. Seen sooner. * ROS:?General/Constitutional:?Nausea?denies.?Vomiting?denies.?Hunger Thirst?denies.?Loss appetite?denies.?Chills?denies.?Fatigue?denies.?Fever?denies.?Night Sweats?denies.?Unexplained weight loss?denies.?Unexplained weight gain?denies.?HEENTM:?Dentures?admits.?Dizziness?admits.?Glasses/contacts?admits.?Retinopathy?de nies.?Blurred/double vision?admits.?TMJ?denies.?Discharge/drainage?denies.?Implants?denies.?Sore throat?denies.?Dental implants?denies.?Hard of hearing ?denies.?Difficulty chewing/swallowing/speaking?denies.?Nose bleeds?denies.?Sore mouth?denies.?Respiratory:?On Oxygen?denies.?Pneumonia/pleurisy?denies.?Bronchitis?denies.?Emphysema?denies.?C oughing?denies.?Cough blood?denies.?Shortness of breath?admits.?Wheezing?denies.?Cardiovascular:?Pacemaker?denies.?MVP?denies.?WPW?denies.?CHF?denies.?Heart attack?denies.?Septal defect?denies.?Rapid beat?denies.?Chest pain ?denies.?Atrial Fib.?denies.?Murmur/Palpitations?denies.?Gastrointestinal:?Hemorrhoids?denies.?Stomach/Abdominal pain?denies.?Dark blood stool?denies.?Irritable bowel ?denies.?Constipation?denies.?Diarrhea?denies.?Hematology:?Swelling?denies.?Clots?denies.?Varicose Veins?denies.?Bruising?denies.?Bleeding problem?denies.?Genitourinary:?Blood urine?denies.?Frequent/Painfu/urination/bladder control?denies.?Kidney stones?denies.?Infection (UTI)?denies.?Nephropathy?denies.?sex trans dis (STD)?denies.?Prostate?denies.?Musculoskeletal:?Hammertoes?denies.?Bunions?denies.?Back Pain?admits.?Muscle Cramps/ Resting?denies.?Muscle cramps / walking?admits.?Generalized aches and pains?denies.?Weakness?denies.?Integ.:?Wilhelm?denies.?Scars?denies.?Corns/calluses?denies.?Ingrown nails?denies.?Painful nails?denies.?Open Sores?denies.?Rashes?denies.?Neurologic:?Difficulty sleeping?denies.?Brain disorder?denies.?Numbness?denies.?Balance trouble?denies.?Confusion?denies.?Fainting/blackouts?denies.?Tingling?denies.?Tr emors?denies.? 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 * Surgical History:? s ection , lumpectomy , Breast Surgery . * Family History:?Mother: dece ased, cancer, diagnosed with Family history of arthritis, Other malignant neoplasm of unspecified site.?Father: , Cancer, diagnosed with Other malignant neoplasm of unspecified site.?Paternal uncle: Stroke, heart attack, diagnosed with Family history of arthritis, Unspecified essential hypertension, Unspecified heart disease.?Maternal uncle: Srtoke, heart attack, diagnosed with Family history of arthritis, Unspecified essential hypertension, Unspecified heart disease.?Siblings: lymphoma, dementiaSister- Cancer, diagnosed with Family history of arthritis, Diabetic - NIDDM, Unspecified essential hypertension, Other malignant neoplasm of unspecified site.?Paternal aunt: diagnosed with Unspecified essential hypertension.?Maternal aunt: diagnosed with Unspecified essential hypertension.? * Social History:?Tobacco Use:?Tobacco Use/Smoking?Are you a:?nonsmoker ?Additional Findings: Tobacco Non-User?Current non-smoker ?Tobacco use other than smoking?Are you an other tobacco user??No ???Drugs/Alcohol:?Drugs?Have you used drugs other than those for medical reasons in the past 12 months??No ?Alcohol Screen?Did you have a drink containing alcohol in the past year??No ?Points?0 ?Interpretation?Negative ???Miscellaneous:?Caffeine: yes, frequency:, 2-3 cups per day. ?Children: yes, 3. ?Marital status: . ?Occupation: Retired. * Medications:?Taking Albutero l Sulfate HFA 108 (90 Base) MCG/ACT Aerosol Solution 1 puff as needed Inhalation every 4 hrs * Allergies:?Amoxicillin: rash , Penicillins: rash, Sulfa Antibiotics: rash, Simvastatin: dizziness, Bactrim: rash, Trimethoprim: rash, Codeine: makes her drowsy - Allergy. Objective: * Vitals:?Ht:5 ft 2 in, Wt:125 , BMI:22.86, Shoe size:8-8.5, Ht-cm: 157.48 cm, Wt- k.7 kg. Assessment: Plan: * Treatment: * Images: * The named appointment provid er may or may not be the originator of this progress note, and it is not deemed complete until electronically signed by the appointment provider. Sign off status: Pending * Provider:?Jazmín Summers DPM Date:?07/2023 Generated for Ludivina ahumada/Augie/Sandra on:?07/14/2024 03:31 PM EDT
--- NOTE | 2024-07-14 15:39 | MHC.PC.OV ---
Vital Signs 07/14/24 15:41 Height 5 ft 2 in Weight 108 lb 8 oz BMI 19.8 BP 94/54 L Blood Pressure Location Lt brachial Position Sitting Pulse 79 Pulse Source Pulse Oximeter Pulse Oximetry (%) 99 Oxygen Delivery Method Room Air Intake Visit Reasons: weight loss, dysphagia Computer Processing Scheduler Required: No Accompanied by: Self / Same As Patient Allergies amoxicillin [AMOXICILLIN] Allergy (Intermediate, Verified 07/14/24 15:42) RASH penicillin V Allergy (Intermediate, Verified 07/14/24 15:42) rash Penicillins [PENICILLINS] Allergy (Intermediate, Verified 07/14/24 15:42) RASH Sulfa (Sulfonamide Antibiotics) [SULFA(SULFONAMIDE ANTIBIOTICS)] Allergy (Intermediate, Verified 07/14/24 15:42) RASH simvastatin [SIMVASTATIN] Allergy (Unknown, Verified 07/14/24 15:42) DIZZINESS sulfamethoxazole [From BACTRIM] Allergy (Unknown, Verified 07/14/24 15:42) RASH trimethoprim [From BACTRIM] Allergy (Unknown, Verified 07/14/24 15:42) RASH Tobacco use date assessed: 07/14/24 Fall risk assessment: No Falls in past year Last assessed Fall Risk: 07/14/24 Dental Screening Dental Screen Date: 07/14/24 Did you have a dental visit in the last 12 months?: Yes Did you have a dental problem in the last 6 months where you did not have access to dental care?: No Was dental information given to patient?: Patient has dentist [facility] Medical History (Updated 07/14/24 @ 16:16 by Andriy Nazario MD) Impaired glucose tolerance General medical exam Sinusitis Osteopenia Hypercholesterolemia Atrophic vaginitis Mixed incontinence urge and stress GERD (gastroesophageal reflux disease) Breast cancer 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 Father No problems noted. Sister Lymphoma Sister Dementia Sister Substance abuse Social History Housing: House Alcohol intake: never Patient Tobacco Use Status: Never used Tobacco e-Cigarette/Vaping Use: Never Used Second Hand Smoke Exposure: No service: No Current occupational status: retired Cognitive needs: No Hearing needs: No Vision needs: Yes Questionnaire Thrive Questionnaire Date Thrive assessed: 07/14/24 I am a: Patient What is your living situation today?: I have a steady place to live Within the past 12 months, did the food you bought not last and you didn't have the money to get more?: Never true Within the past 12 months, did you worry whether your food would run out before you got money to buy more?: Never true Do you have trouble paying for medicines?: No Do you have trouble getting transportation to medical appointments?: No Do you have trouble paying your heating and electricity bill?: No Do you have trouble taking care of your child, family member or friend?: No Do you have trouble with day-to-day activities such as bathing, preparing meals, shopping, managing finances, etc.?: No Are you currently unemployed and looking for a job?: No Are you interested in more education?: No Please select the resources that you would like help with: None Currently or been in a relationship where the following occur: No concerns reported THRIVE Score: 0 AUDIT C Alcohol Use Questionnaire (AUDIT-C) 1. How often do you have a drink containing alcohol?: Never 3. How often do you have six or more drinks on one occasion?: Never Total Score: 0 EDY-7 AMB Questionnaire EDY-7 Date EDY - 7 assessed: 07/14/24 Source: Developed by Drs. Donn Storm, Génesis Edwards, Petros Woodard and colleagues, with an educational regla from [employer]. Physical exam (Primary Care) Vital Signs: Last Vital Signs Pulse 79 07/14/24 15:41 BP 94/54 L 07/14/24 15:41 Pulse Ox 99 07/14/24 15:41 Oxygen Delivery Method Room Air 07/14/24 15:41 BMI result Body Mass Index 19.8 Tobacco/Smoking Status: Tobacco use Status Tobacco use date assessed 07/14/24 07/14/24 15:45 Patient Tobacco Use Status Never used Tobacco 07/14/24 15:45 e-Cigarette/Vaping Use Never Used 07/14/24 15:45 Thrive Assessment: Date of Thrive Assessment Date Thrive assessed 07/14/24 07/14/24 16:03 Currently or been in a relationship where the following occur: No concerns reported Const General: alert; No acute distress Eyes Conjunctivae: conjunctivae normal Resp Auscultation: clear to auscultation bilaterally Cardio Rate: regular rate Rhythm: regular rhythm GI Inspection: Yes normal to inspection Extrem General: Yes normal to inspection and No edema Immunizations pneumoc 20-audelia conj-dip cr(PF) 0.5 mL IM syringe Performing Provider: Andriy Nazario MD [facility] Administered by: JIM Thompson on 07/14/24 16:49 Dose Route Admin Location Dispensed Lot Number Expiration Date [facility] Linoleum Installer 0.5 mL IM Left Deltoid 0.5 mL [id number] 04/08/25 3264-3261-41 [employer] VIS Given Date VIS Provided VIS Publication Date 07/14/24 Single Vaccine 22 Eligibility Eligibility Date Funding Source Not [facility] Eligible 07/14/24 Private Coding Level of Care Code Est Pt Level 4 (54908) Complex EM visit Add On G2211 Diagnoses Type 2 diabetes mellitus with hyperglycemia E11.65 Left renal mass N28.89 Cholelithiasis K80.20 Hepatic steatosis K76.0 Bilateral malignant neoplasm of breast in female, unspecified estrogen receptor status, unspecified site of breast C50.911; C50.912 Breast location: unspecified site of breast Estrogen receptor status: unspecified Laterality: bilateral Patient sex: female Hypercholesterolemia E78.00 Mild intermittent asthma without complication J45.20 Asthma complication type: uncomplicated Asthma persistence: intermittent Asthma severity: mild Gastroesophageal reflux disease without esophagitis K21.9 Esophagitis presence: without esophagitis Assessment & Plan Assessment & Plan (1) Type 2 diabetes mellitus with hyperglycemia: Code(s): E11.65 - Type 2 diabetes mellitus with hyperglycemia Category: Medical Plan: Decrease the amount of carbohydrate intake, pasta, bread, rice and potatoes are all sugar and that is aside from all the sweet stuff, remember that fruits are good but they are Sweet also. Hemoglobin A1c goal of less than 7.0 diet controlled (2) Left renal mass: Comment: 10/2023Nonobstructing 3 mm right renal calculus. 2. Tiny echogenic focus in the left renal cortex which has appearances of a benign angiomyolipoma. A follow-up ultrasound is recommended in one year's time to document stability. 3. Incidentally noted hepatic steatosis. Code(s): N28.89 - Other specified disorders of kidney and ureter Category: Medical Plan: Patient has an upcoming ultrasound this month (3) Cholelithiasis: Comment: January 01 Code(s): K80.20 - Calculus of gallbladder without cholecystitis without obstruction Category: Medical Plan: Patient is advised to get low-fat diet (4) Hepatic steatosis: Comment: December 2023 Code(s): K76.0 - Fatty (change of) liver, not elsewhere classified Category: Medical Plan: Low-fat diet and exercise (5) Breast cancer: Comment: DCIS breast [address] stein mammogram October 2021 Code(s): C50.919 - Malignant neoplasm of unspecified site of unspecified female breast Category: Medical Qualifiers: Breast location: unspecified site of breast Estrogen receptor status: unspecified Laterality: bilateral Patient sex: female Qualified Code(s): C50.911 - Malignant neoplasm of unspecified site of right female breast; C50.912 - Malignant neoplasm of unspecified site of left female breast Plan: Up-to-date with mammogram (6) Hypercholesterolemia: Code(s): E78.00 - Pure hypercholesterolemia, unspecified Category: Medical Plan: Avoid fried foods, chicken skin, eggs, butter margarine, pastries and meat. Be it pork or beef they have a lot of cholesterol LDL goal of less than 100 and triglyceride of less than 150 diet controlled (7) Asthma: Code(s): J45.909 - Unspecified asthma, uncomplicated Category: Medical Qualifiers: Asthma complication type: uncomplicated Asthma persistence: intermittent Asthma severity: mild Qualified Code(s): J45.20 - Mild intermittent asthma, uncomplicated Plan: Continue with albuterol as needed (8) GERD (gastroesophageal reflux disease): Code(s): K21.9 - Gastro-esophageal reflux disease without esophagitis Category: Medical Qualifiers: Esophagitis presence: without esophagitis Qualified Code(s): K21.9 - Gastro-esophageal reflux disease without esophagitis Plan: Avoid the foods that causes that usually spicy foods, tomato products, juices, coffee, soda and foods that your sensitive to. After eating do not lie down, allow 3-4 hours before in lie down. And keep the head of bed above 30 degrees to avoid the acid from going up. Plan History of Present Illness The patient is a 69-year-old female presenting for follow-up of her chronic medical conditions, including gastroesophageal reflux disease, hypercholesterolemia, asthma, diabetes mellitus, nonalcoholic hepatic steatosis, osteoporosis, cholelithiasis, and anxiety disorder. Her diabetes mellitus is controlled with diet and exercise, and recent blood work showed an A1c of 6.0. Her low-density lipoprotein (LDL) cholesterol is above the target, but no dietary changes are recommended due to concerns about further weight loss. The patient has a history of breast cancer diagnosed in 2004, with her most recent mammogram in November 2023 being up to date. She underwent bone density screening in November 2023 and a colonoscopy in 2018. Scheduled upcoming procedures include a left kidney ultrasound on August 01 and a swallow test on August 04 due to previous concerns, although no current swallowing difficulties are reported. The patient maintains a stable weight and reports no issues with appetite or swallowing despite recent dietary changes. Her vision is managed with corrective lenses, and cataracts have been noted but are not currently matured. Health Maintenance - Mammogram: Up to date as of November 2023 - Bone Density Test: Last done in November 2023; within normal limits - Colonoscopy: Last done in 2018 - Blood Work: May 08, 2024; glucose and lipid levels within specified range - Blood Count: Within normal limits - Cholesterol and Triglyceride Management: Diet-controlled with LDL cholesterol goal less than 100 - Pneumonia Vaccination: Recommended today - Shingles Vaccination: Suggested - Vitamin D and Calcium: Supplementation recommended in winter - Vision: Monitored for cataracts; corrective lenses being used Social History - Diet: Low-fat diet, controlled to manage diabetes and hypercholesterolemia - Exercise: Followed as part of diabetes and cholesterol management - Weight: Maintaining stability post previous weight loss; dietary intake and weight closely monitored - Vision Care: Under care of ammonia box tender; uses corrective lenses due to early cataract development Review of Systems - Gastrointestinal: Denies nausea, vomiting, difficulty swallowing, blood in stools - Respiratory: Denies recent respiratory issues - Musculoskeletal: Reports concern of weak bones; taking calcium and vitamin D for osteoporosis - Neurological: Denies dizziness or weakness - Ophthalmic: Reports vision is stable; wearing glasses, early cataract diagnosis - Psychiatric: Denies changes in mood; history of anxiety disorder - Dermatology: No current skin issues reported Physical Exam Results - Labs: May 08, 2024, blood work; all counts normal, including sodium, potassium, kidney function, hemoglobin A1c of 6.0 - Tests & Diagnostics: - Chest X-ray: May 13, 2024; negative - Ultrasound of left kidney: Scheduled for August 01, 2024 - Swallow Test: Scheduled for August 04, 2024 Plan 1. 0. There was no recommendation to change the diet as her cholesterol level requires minimal adjustment and she is wary of further weight loss. Osteoporosis management includes calcium and vitamin D supplementation during colder months. Her asthma is managed on an as-needed basis with albuterol. The patient should maintain update with relevant health screenings and vaccinations, including remaining current with mammograms, and scheduling her next colonoscopy considering the last test in 2018. She will receive the pneumonia vaccine and was advised about the benefits and potential mild side effects of the shingles vaccine. Regular follow-up for vision is advised, given early cataract development.: Patient was informed and verbally consented to the use of an ambient scribe for clinic note documentation during this visit. Discussion Notes Today?s discussion emphasized maintaining the patient?s health with respect to her chronic conditions. For cholesterol management, I recommended continuing the low-fat diet with exercise, keeping cholesterol levels stable while avoiding weight loss. In discussing diabetes, I confirmed satisfaction at the HbA1c of 6.0 and advised continuing current diet management. The discussion on osteoporosis reinforced the role of calcium and vitamin D, particularly focusing on diet and supplementation in winter. I reviewed plans for upcoming diagnostic tests: an ultrasound and a swallow test scheduled in July. We discussed vaccination options, highlighting the importance of the pneumonia vaccine today, and considered the shingles vaccine for future preventive care, explaining the negligible risks involved. I confirmed comfort with the suggested plan, detailing that vaccinations do have benefits and can have minor side effects. Follow-ups for health maintenance, including vision care, were emphasized, noting early cataract findings. I provided reassurances about her overall health status given recent test results. Patient Instructions - Follow a low-fat diet and continue regular exercise. - Keep a stable blood sugar level with diet control. - Continue taking calcium and vitamin D, especially in winter. - Use albuterol as needed for asthma. - Attend the scheduled ultrasound and swallow test in July. - Receive the pneumonia vaccine today. - Consider the shingles vaccine at a convenient time. - Follow up with Dr. Jerez for vision concerns with cataracts. - Stay updated with regular health screenings and vaccinations. - Contact us if new symptoms or concerns arise before the next visit. Orders: Orders Pneumococcal 20 Immunization Today Z23 - Encounter for immunization
[2024-07-14 15:41] VITALS: BP 94/54; PULSE 79; O2SAT 99; BMI 19.8
== END 2024-07-14 16:31 | disposition home or self-care (01) ==
LOC: HO.HMCH 15:29
PROVIDERS: PCP Internal Medicine; Visit Provider Internal Medicine
DX: E11.65 Type 2 diabetes mellitus with hyperglycemia (principal); C50.911 Malignant neoplasm of unspecified site of right female breast; C50.912 Malignant neoplasm of unspecified site of left female breast; N28.89 Other specified disorders of kidney and ureter; K80.20 Calculus of gallbladder without cholecystitis without obstruction; K76.0 Fatty (change of) liver, not elsewhere classified; E78.00 Pure hypercholesterolemia, unspecified; J45.20 Mild intermittent asthma, uncomplicated; K21.9 Gastro-esophageal reflux disease without esophagitis; Z23 Encounter for immunization

== ENCOUNTER → 2024-07-14 15:29 | Outpatient (BNVA) | payer MEDICARE, SELFPAY | PROVIDERS: PCP Internal Medicine; Visit Provider Internal Medicine | DX: E11.65 Type 2 diabetes mellitus with hyperglycemia (principal); Z23 Encounter for immunization; N28.89 Other specified disorders of kidney and ureter; K80.20 Calculus of gallbladder without cholecystitis without obstruction; K76.0 Fatty (change of) liver, not elsewhere classified; Z85.3 Personal history of malignant neoplasm of breast; E78.00 Pure hypercholesterolemia, unspecified; J45.20 Mild intermittent asthma, uncomplicated; K21.9 Gastro-esophageal reflux disease without esophagitis | CPT/HCPCS: 90471; 90677; 99212 ==

== ENCOUNTER 2024-08-01 16:09 | Outpatient (REF) | payer MEDICARE, SELFPAY ==
--- OUTSIDE RECORDS SUMMARY | 2023-09-14 06:30 | XMS_ITS ---
Author Organization [facility] Address [address] [facility] [place] [address] Care Team Providers Care Hat Body Sorter Name Role Phone Andriy Nazario Primary Care Provider Jazmín Santana [phone] Allergies Allergen (clinical drug ingredient) Drug/Non Drug Allergy documented on EMR Reaction Allergy Type Onset Date Status amoxicillin Amoxicillin rash Drug Allergy Act obdulio sulfamethoxazole / trimethoprim Bactrim rash Drug Allergy Active Simvastatin dizziness Drug Allergy Activ e trimethoprim Trimethoprim rash Drug Allergy A ctive [...] 09/14/2023 Encounters Encounter Location Date Provider Diagnosis [facility] [address] [place] [address] 09/14/2023 Jazmín Summers Plan Of Treatment No Information Progress Notes * Berta AGUILAR ADOB:1955 (69 yo F)Acc No.[id number]:09/14/2023 Progress Notes Patient: Berta MEAD Provider: Ary Summers DPM :1955 A ge:68 Y S ex:Female Date:09/14/2023 Address:[address] [place], [place] [id number] Pcp:Andriy Nazario Subjective: * Chief Complaints: * [...] enies. C ardiovascular: Pacemaker d enies. M NON DESTRUCTIVE TESTING SCIENTIST d enies. W PW d enies. C [...] Date: 09/14/2023 Generated for Ludivina ahumada/Augie/Sandra on: 08/01/2024 06:57 PM EDT
--- NOTE | ~2024-08-01 | US_ITS ---
EXAMINATION: US KIDNEY BILATERAL HISTORY: N20.0 - Calculus of kidney TECHNIQUE: Real-time grayscale ultrasound imaging of the kidneys was performed and images were reviewed. COMPARISON: Comparison is made with the prior examination dated 12/15/2023. FINDINGS: Right kidney: The right kidney measures 9.7 x 3.3 x 3.9 cm. Renal parenchymal echotexture and thickness are normal. There are no masses. There is no hydronephrosis or renal calculi. Left Kidney: The left kidney measures 11.1 x 3.8 x 3.0 cm. The left kidney demonstrates a mildly lobulated contour. Renal parenchymal echotexture and thickness are normal. There are no masses. There is no hydronephrosis or renal calculi. US/US renal BI IMPRESSION: Unremarkable renal ultrasound. Electronically signed by: Donn Singh MD 08/02/2024 07:22 AM EDT
== END 2024-08-01 16:10 | disposition home or self-care (01) ==
LOC: HO.US 16:09
PROVIDERS: PCP Internal Medicine; Visit Provider Nurse Practitioner Family
DX: N20.0 Calculus of kidney (principal)
CPT/HCPCS: 76775

== ENCOUNTER → 2024-08-01 16:11 | Outpatient (BNV) | payer MEDICARE, SELFPAY | PROVIDERS: PCP Internal Medicine; Visit Provider Radiology Diagnostic Radiology | DX: N20.0 Calculus of kidney (principal) | CPT/HCPCS: 76775 ==

== ENCOUNTER 2024-08-04 09:40 | Outpatient (REF) | payer MEDICARE, SELFPAY ==
--- OUTSIDE RECORDS SUMMARY | 2023-09-14 06:30 | XMS_ITS ---
Author Organization [facility] Address [address] [place] [address] Care Team Providers Care Stenotype Operator Name Role Phone Andriy Nazario Primary Care Provider Jazmín Santana [phone] Allergies Allergen (clinical drug ingredient) Drug/Non Drug Allergy documented on EMR Reaction Allergy Type Onset Date Status Amoxicillin rash Drug Allergy Activ e Bactrim rash Drug Allergy Active Simvastatin dizziness Drug Allergy Activ e Trimethoprim rash Drug Allergy Acti ve codeine Codeine makes her drowsy Drug Allergy [...] 09/14/2023 Encounters Encounter Location Date Provider Diagnosis [facility] [address] [place] [address] 09/14/2023 Jazmín Summers Plan Of Treatment No Information Progress Notes * Breta AGUILAR ADOB:1955 (69 yo F)Acc No.[id number]:09/14/2023 Progress Notes Patient: Berta MEAD Provider: Ary Summers DPM :1955 A ge:68 Y S ex:Female Date:09/14/2023 Address:[address] [place], [place] [id number] Pcp:Andriy Nazario Subjective: * Chief Complaints: * [...] enies. C ardiovascular: Pacemaker d enies. 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 W PW d enies. C [...] 09/14/2023 Generated for Ludivina ahumada/Augie/Sandra on: 0 08/04/2024 10:10 AM EDT
--- NOTE | ~2024-08-04 | FL_ITS ---
EXAMINATION: XR UPPER GI AIR CONTRAST SERIES WITH BARIUM SWALLOW CLINICAL INFORMATION: Dysphagia COMPARISON: None available. TECHNIQUE: Routine upper GI air contrast study and barium swallow was performed FINDINGS: Following oral administration of thick barium and effervescent granules there is normal propagation bolus from the oral cavity through the pharynx, esophagus into stomach in upright view. No obstruction, narrowing or stricture seen. No extrinsic compression. No laryngeal penetration or aspiration seen. The GE junction appears widely patent. On placing patient supine and prone lying the course, caliber and peristalsis of the stomach is normal. There is mild increased gastric secretions. No gastric or duodenal ulceration or erosion seen. Incidental finding of a mild gastroesophageal reflux without hiatal hernia is noted. Incidental finding of cholecystectomy noted. FLUOROSCOPY TIME: 1 minute and 55 seconds DOSE AREA PRODUCT: 164.4 uGy-m2 (microgray-meter squared) FL/FL upper GI w air w Ba Swallow IMPRESSION: Mild increased gastric secretions suggestive of increased gastric acidity. Mild gastroesophageal reflux. The esophagus is unremarkable.. Electronically signed by: Cody Nunn MD 08/04/2024 12:28 PM EDT
== END 2024-08-04 09:41 | disposition home or self-care (01) ==
LOC: HO.XRAY 09:40
PROVIDERS: PCP Internal Medicine; Visit Provider Internal Medicine
DX: R13.10 Dysphagia, unspecified (principal)
CPT/HCPCS: 74246

== ENCOUNTER → 2024-08-04 09:47 | Outpatient (BNV) | payer MEDICARE, SELFPAY | PROVIDERS: PCP Internal Medicine; Visit Provider Radiology Diagnostic Radiology | DX: R13.10 Dysphagia, unspecified (principal) | CPT/HCPCS: 74246 ==

== ENCOUNTER 2024-08-31 10:17 | Outpatient (AMB) | payer MEDICARE, SELFPAY ==
--- OUTSIDE RECORDS SUMMARY | 2023-09-14 06:30 | XMS_ITS ---
Author Organization [facility] Address [address] [place] [address] Care Team Providers Care Muffler Installer Name Role Phone Andriy Nazario Primary Care Provider Jazmín Santana [phone] Allergies Allergen (clinical drug ingredient) Drug/Non Drug [...] 09/14/2023 Encounters Encounter Location Date Provider Diagnosis [facility] [address] [place] [address] 09/14/2023 Jazmín Summers Plan Of Treatment No Information Progress Notes * Berta AGUILAR ADOB:1955 (69 yo F)Acc No.[id number]:09/14/2023 Progress Notes Patient: Berta MEAD Provider: Ary Summers DPM :1955 A ge:68 Y S ex:Female Date:09/14/2023 Address:[address] [place], [place] [id number] Pcp:Andriy Nazario Subjective: * Chief Complaints: * [...] enies. C ardiovascular: Pacemaker d enies. M STRIPE MATCHER d enies. W PW d enies. C [...] 0 09/14/2023 Generated for Ludivina ahumada/Augie/Sandra on: 08/31/2024 11:04 AM EDT
--- NOTE | 2024-08-31 10:38 | A.OFFVIS_ITS ---
Intake Visit Reasons: 6m/US(set) Intake Note: Patient is present for 6M/US Urology Medication:NONE Antibiotic Allergy:AMOXICILLIN,PENICILLINS,SULFA,SIMVASTATIN,BACTRIM Blood Thinner:NONE Bottler Helper Required: No Allergies amoxicillin (AMOXICILLIN) Allergy (Intermediate, Verified 08/31/24 10:59) RASH penicillin V Allergy (Intermediate, Verified 08/31/24 10:59) rash Penicillins (PENICILLINS) Allergy (Intermediate, Verified 08/31/24 10:59) RASH Sulfa (Sulfonamide Antibiotics) (SULFA(SULFONAMIDE ANTIBIOTICS)) Allergy (Intermediate, Verified 08/31/24 10:59) RASH simvastatin (SIMVASTATIN) Allergy (Unknown, Verified 08/31/24 10:59) DIZZINESS sulfamethoxazole (From BACTRIM) Allergy (Unknown, Verified 08/31/24 10:59) RASH trimethoprim (From BACTRIM) Allergy (Unknown, Verified 08/31/24 10:59) RASH Medication List - Last Reconciled 08/31/24 by GREG Antony- albuterol sulfate 90 mcg/actuation 2 puffs PO Q4H PRN HPI Comments Details: Berta is a pleasant 69-year-old female patient of Dr. Nazario. She has a past medical history of osteopenia, hypercholesteremia, atrophic vaginitis, GERD, breast cancer with a lumpectomy in 2004, and asthma. She presents to the office today for a follow up of her recurrent urinary tract infections and nephrolithiasis. In discussion with the patient today she reports to be doing and feeling well. She denies having had any urinary tract infections since her last office visit here. She does report intermittent episodes of dysuria however feels symptoms resolve with increase in hydration. We did discussed bladder triggers and irritants. Recent renal imaging results were reviewed with the patient today. Bilateral kidneys are normal in echotexture and thickness. There are no renal masses, hydronephrosis, or renal calculi noted bilaterally. She discusses her ongoing issues with her bowels as well as abdominal bloating. She reports following up with her PCP regarding this issue. In office urinalysis results reviewed with the patient today. When asked she denies urinary urgency, urinary frequency, incontinence, nocturia, hematuria, foul smelling urine, changes to urinary stream, flank pain, fever, and or chills. She denies any other issues or concerns at this time. 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 Father No problems noted. Sister Lymphoma Sister Dementia Sister Substance abuse Social History Housing: House Alcohol intake: never Patient Tobacco Use Status: Never used Tobacco e-Cigarette/Vaping Use: Never Used Second Hand Smoke Exposure: No service: No Current occupational status: retired Cognitive needs: No Hearing needs: No Vision needs: Yes Review of Systems Const Reports no additional complaints Eyes Reports no additional complaints ENT Reports no additional complaints Card Reports as per HPI Resp Reports as per HPI GI Reports as per HPI Reports as per HPI Musc Reports as per HPI Skin/Breast Reports as per HPI Neuro Reports no additional complaints Psych Reports no additional complaints Endo Reports no additional complaints Vin/Lymph Details: patient reports a history of breast cancer Physical Exam Const General: cooperative, healthy appearing, comfortable, no acute distress, well developed, alert and awake Orientation/consciousness: patient oriented x3 Limitations: no limitations HEENT Head: Yes normal to inspection, Yes normocephalic and Yes atraumatic Ears: hearing grossly normal bilaterally Eyes General: appearance normal, both eyes and all related structures Neck Neck: Yes normal visual inspection and Yes trachea midline Chest Chest palpation & inspection: normal inspection of the chest Resp Effort & Inspection: normal respiratory effort and able to speak in complete sentences Cardio Rate: regular rate GI Inspection: Yes normal to inspection General: Yes no CVA tenderness Back/Spine/Pelvis Back: no CVA tenderness Skin General skin exam: no rashes or lesions noted Neuro General: patient oriented x3 Extrem General: Yes normal to inspection Psych Appearance: grossly normal and well kempt Mental Status: mental status grossly normal Speech and movement: Normal speech and movement present and Clear speech present Affect: normal affect Attitude: cooperative Thought process: Normal thought process present Thought content: Normal thought content present Insight: Fair insight present (Psych) Judgement: Fair judgement present (Psych) Results AMB Urinalysis, Automated UA Leukoctes 0 Panfilo/uL Last Edit by JIM Mcrae on 08/31/24 10:52 UA Nitrite Negative Last Edit by Magdaleno An [facility] on 08/31/24 10:52 UA Urobilinogen 0.2 mg/dL Last Edit by Magdaleno An [facility] on 08/31/24 10:5 2 UA Protein 0 mg/dL Last Edit by Magdaleno An [facility] on 08/31/24 10:52 UA pH 6.0 Last Edit by Magdaleno An [facility] on 08/31/24 10:52 UA Blood 10 Jose/uL Last Edit by Magdaleno An [facility] on 08/31/24 10:52 UA Specific Freedom 1.015 Last Edit by Magdaleno An [facility] on 08/31/24 10: 52 UA Ketone Negative Last Edit by Magdaleno An [facility] on 08/31/24 10:52 UA Bilirubin 0 mg/dL Last Edit by Magdaleno An [facility] on 08/31/24 10:52 UA Glucose 0 mg/dL Last Edit by Magdaleno An [facility] on 08/31/24 10:52 Results Reviewed Results Reviewed: Laboratory Last Values Urine pH (Auto) 6.0 08/31/24 10:51 Specific Freedom (Auto) 1.015 08/31/24 10:51 Urine Protein (Auto) 0 mg/dL 08/31/24 10:51 Glucose (UA)(Auto) 0 mg/dL 08/31/24 10:51 Urine Ketones (Auto) Negative 08/31/24 10:51 Urine Blood (Auto) 10 Jose/uL 08/31/24 10:51 Urine Nitrite (Auto) Negative 08/31/24 10:51 Urine Bilirubin (Auto) 0 mg/dL 08/31/24 10:51 Urine Urobilinogen (Auto) 0.2 mg/dL 08/31/24 10:51 Leukocyte Esterase (Auto) 0 Panfilo/uL 08/31/24 10:51 Date of Service: 08/01/24 Procedure(s): US renal BI FINDINGS: Right kidney: The right kidney measures 9.7 x 3.3 x 3.9 cm. Renal parenchymal echotexture and thickness are normal. There are no masses. There is no hydronephrosis or renal calculi. Left Kidney: The left kidney measures 11.1 x 3.8 x 3.0 cm. The left kidney demonstrates a mildly lobulated contour. Renal parenchymal echotexture and thickness are normal. There are no masses. There is no hydronephrosis or renal calculi. IMPRESSION: Unremarkable renal ultrasound. Assessment & Plan Assessment & Plan (1) Nephrolithiasis: Comment: 10/2023Nonobstructing 3 mm right renal calculus. 2. Tiny echogenic focus in the left renal cortex which has appearances of a benign angiomyolipoma. A follow-up ultrasound is recommended in one year's time to document stability. 3. Incidentally noted hepatic steatosis. Code(s): N20.0 - Calculus of kidney Category: Medical (2) Recurrent UTI: Code(s): N39.0 - Urinary tract infection, site not specified Category: Medical Plan In office urinalysis results reviewed with the patient today; as noted above. PVR 0 mL. Patient currently denies any bothersome urinary issues or concerns. She reports be happy with current voiding parameters. Recent renal imaging results reviewed the patient today; as noted above. We discussed bladder triggers and irritants. We discussed the importance of adequate hydration relation to nephrolithiasis as well as overall health and well-being Will obtain renal ultrasound in 6 months. Follow-up in 6 months with imaging to be completed prior; or sooner with any issues, concerns, and or questions. Orders: Orders AMB Urinalysis Automated Today Z13.9 - Encounter for screening, unspecified Urine Cytology Today R31.29 - Other microscopic hematuria US renal BI 6 Months N20.0 - Calculus of kidney Patient Instructions: The patient had an opportunity to ask questions regarding the treatment plan. All questions were answered. Physical exam, labs, and imaging were discussed and reviewed in detail. As well as risks, benefits, and discussion of treatment choices. No major barriers to understanding were identified. The patient expressed understanding and agreement with the above treatment plan. The patient was made aware they should contact our office by phone for worsening of their current condition, the appearance of new symptoms, or with any questions or concerns. Compliance is encouraged with any medications and follow up testing that is ordered. It is a privilege to be allowed the opportunity to participate in? your urological care.? Again, if you have any questions or concerns If you have any questions or concerns please do not hesitate to contact me. The office is [phone]. This note is constructed using voice recognition software. While every effort has been made to ensure accuracy bark peeler errors may have been included. Yours sincerely, NIRAJ Antony Coding Level of Care Code Est Pt Level 3 (66373) Complex EM visit Add On G2211 Diagnoses Nephrolithiasis N20.0 Recurrent UTI N39.0
--- OUTSIDE RECORDS SUMMARY | 2024-08-31 11:04 | XMS_ITS | Patient Health Record ---
Author Organization [facility] Address [address] [place] [address] Care Team Providers Care Barrel Drum Cutter Name Role Phone Francesco Monk Jr [phone] Reason For Referral No Information Plan Of Treatment No Information
== END 2024-08-31 11:01 | disposition home or self-care (01) ==
LOC: HO.HUSH 10:18
PROVIDERS: PCP Internal Medicine; Visit Provider Nurse Practitioner Family
DX: N20.0 Calculus of kidney (principal); N39.0 Urinary tract infection, site not specified; Z13.9 Encounter for screening, unspecified
CPT/HCPCS: 99213; G2211

== ENCOUNTER 2024-08-31 10:17 | Outpatient (REF) | payer MEDICARE, SELFPAY | END 2024-08-31 10:18 | disposition home or self-care (01) | LOC: HO.LAB 10:17 | PROVIDERS: PCP Internal Medicine; Visit Provider Nurse Practitioner Family | DX: N20.0 Calculus of kidney (principal); R31.29 Other microscopic hematuria; N39.0 Urinary tract infection, site not specified; K76.0 Fatty (change of) liver, not elsewhere classified | CPT/HCPCS: 81003; 88112; 99212 ==

== ENCOUNTER 2024-09-04 12:17 | Outpatient (AMB) | payer MEDICARE, SELFPAY ==
--- OUTSIDE RECORDS SUMMARY | 2023-09-14 06:30 | XMS_ITS ---
Author Organization [facility] Address [address] [facility] [place] [address] Care Team Providers Care Journalism Professor Name Role Phone Andriy Nazario Primary Care Provider Jazmín Santana [phone] Allergies Allergen (clinical drug ingredient) Drug/Non Drug [...] 09/14/2023 Encounters Encounter Location Date Provider Diagnosis [facility] [address] [place] [address] 09/14/2023 Jazmín Summers Plan Of Treatment No Information Progress Notes * Berta AGUILAR ADOB:1955 (69 yo F)Acc No.[id number]:09/14/2023 Progress Notes Patient: Berta MEAD Provider: Ary Summers DPM :1955 A ge:68 Y S ex:Female Date:09/14/2023 Address:[address] [place], [place] [id number] Pcp:Andriy Nazario Subjective: * Chief Complaints: * [...] enies. C ardiovascular: Pacemaker d enies. 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 W PW d enies. C [...] Pending * Provider: Ary Summers DPM Date: 09/14/2023 Generated for Ludivina ahumada/Augie/Sandra on: 09/04/2024 01:12 PM EDT
--- NOTE | 2024-09-04 12:31 | A.OFFVIS_ITS ---
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 Required: No Accompanied by: Self / Same As Patient Allergies amoxicillin (AMOXICILLIN) Allergy (Intermediate, Verified 09/04/24 12:37) RASH penicillin V Allergy (Intermediate, Verified 09/04/24 12:37) rash Penicillins (PENICILLINS) Allergy (Intermediate, Verified 09/04/24 12:37) RASH Sulfa (Sulfonamide Antibiotics) (SULFA(SULFONAMIDE ANTIBIOTICS)) Allergy (Intermediate, Verified 09/04/24 12:37) RASH simvastatin (SIMVASTATIN) Allergy (Unknown, Verified 09/04/24 12:37) DIZZINESS sulfamethoxazole (From BACTRIM) Allergy (Unknown, Verified 09/04/24 12:37) RASH trimethoprim (From BACTRIM) Allergy (Unknown, Verified 09/04/24 12:37) RASH Medication List - Last Reconciled 09/04/24 by Andriy Nazario MD albuterol sulfate 90 mcg/actuation 2 puffs PO Q4H PRN HPI SWV G0439 HPI Details [facility] , [facility], [place] [facility], Hematology-Oncology [facility]. [facility] gastroenterology [facility] [place] [facility] Medical History Impaired glucose tolerance General medical exam Sinusitis Osteopenia Hypercholesterolemia Atrophic vaginitis Mixed incontinence urge and stress GERD (gastroesophageal reflux disease) Breast cancer 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 Father No problems noted. Sister Lymphoma Sister Dementia Sister Substance abuse Social History Housing: House Alcohol intake: never Patient Tobacco Use Status: Never used Tobacco e-Cigarette/Vaping Use: Never Used Second Hand Smoke Exposure: No service: No Current occupational status: retired Cognitive needs: No Hearing needs: No Vision needs: Yes Questionnaire Medicare Wellness Checkup [age] What gender do you identify with?: female During the past 4 weeks, how much have you been bothered by emotional problems such as feeling anxious, depressed, irritable, sad or downhearted, and blue?: not at all During the past 4 weeks, has your physical & emotional health limited your social activities with family, friends, neighbors, or groups?: not at all During the past 4 weeks, how much bodily pain have you generally had?: mild pain During the past 4 weeks, was someone available to help you if you needed & wanted help?: no, not at all During the past 4 weeks, what was the hardest physical activity you could do for at least 2 minutes?: moderate Can you get to places out of walking distance without help? (For eg., can you travel alone on buses, taxis or drive your car?): Yes Can you go shopping for groceries or clothes without someone's help?: Yes Can you prepare your own meals?: Yes Can you do your housework without help?: Yes Because of any health problems, do you need the help of another person with your personal care needs such as eating, bathing, dressing or getting around the house?: No Can you handle your own money without help?: Yes During the past 4 weeks, how would you rate your health in general?: very good During the past 4 weeks how have things been going for you?: pretty well Are you having difficulties driving your car?: no Do you always fasten your seat belt when you are in a car?: yes, usually During past 4 weeks, have you been bothered by the following: never: Trouble eating well?, Teeth or denture problems? and Problems using the telephone?, seldom: Falling or dizzy when standing up and sometimes: Tiredness or fatigue? Have you fallen 2 or more times in the past year?: No Are you afraid of falling?: No Are you a smoker?: no During the past 4 weeks, how many drinks of wine, beer, or other alcoholic beverages did you have?: no alcohol at all Do you exercise for about 20 minutes 3 or more times a week?: no, I usually do not exercise this much Have you been given information to help with the following?: no: Hazards in your house that might hurt you? and no: Keeping track of your medications? How often do you have trouble taking medicines the way you have been told to take them?: I seldom take medications as prescribed How confident are you that you can control & manage most of your health problems?: very confident What is your race?: or origin or descent PHQ-9 Over the last 2 weeks, how often have you been bothered by any of the following problems? 1. Little interest or pleasure in doing things: not at all 2. Feeling down, depressed, or hopeless: not at all 3. Trouble falling or staying asleep, or sleeping too much: not at all 4. Feeling tired or having little energy: not at all 5. Poor appetite or overeating: not at all 6. Feeling bad about yourself - or that you are a failure or have let yourself or your family down: not at all 7. Trouble concentrating on things, such as reading the newspaper or watching television: not at all 8. Moving or speaking so slowly that other people could have noticed. Or the opposite - being so fidgety or restless that you have been moving around a lot more than usual: not at all 9. Thoughts that you would be better off or of hurting yourself in some way: not at all Total score: 0 Depression Screening Interpretation: Negative Depression Screening Done: Yes 68458 - PHQ-9 Billing: Yes Source: Developed by Drs. Donn Storm, Génesis Edwards, Petros Woodard and colleagues, with an educational regla from [email or web address]. Review of Systems Const Denies poor appetite and Denies weakness Eyes Denies no additional complaints ENT Reports Normal hearing present, Denies dizziness, Denies nasal congestion, Denies tinnitus and Denies sore throat Card Denies chest pain, Denies syncope, Denies rapid heart rate and Denies dyspnea Resp Denies cough and Denies dyspnea GI Denies change in stool character, Reports constipation, Denies diarrhea, Denies nausea and Denies vomiting Denies urinary frequency, Denies difficulty voiding and Denies dysuria Neuro Reports Normal hearing present, Denies confusion, Denies dizziness, Denies syncope and Denies weakness Psych Denies confusion Physical Exam Vital Signs: Last Vital Signs Temp 97.3 F 09/04/24 12:32 Pulse 66 09/04/24 12:32 Resp 18 09/04/24 12:32 BP 120/60 09/04/24 12:32 Pulse Ox 97 09/04/24 12:32 Oxygen Delivery Method Room Air 09/04/24 12:32 BMI result Body Mass Index 19.4 Const General: No confusion Orientation/consciousness: No confusion HEENT Head: Yes normocephalic Ears: external ears normal and TM's normal bilaterally Face and sinus: Yes normal facial exam Mouth: moist mucous membranes Throat: Yes tonsils normal Eyes Conjunctivae: conjunctivae normal Pupils: Equal, round and reactive pupils present and Pupil accommodation reflex normal Direct Ophthalmoscopy: normal light reflex Neck Neck: No lymphadenopathy Thyroid: Thyroid normal Chest Chest palpation & inspection: normal inspection of the chest Resp Effort & Inspection: normal respiratory effort and no audible wheezes Auscultation: clear to auscultation bilaterally, no crackles, no wheezes and lung sounds not diminished Cardio Rate: regular rate Rhythm: regular rhythm Peripheral pulses: radial pulses present and dorsalis pedis present GI Palpation (GI): no masses Auscultation: normal bowel sounds and normoactive bowel sounds Rectal Exam - Female: deferred Skin General skin exam: no rashes or lesions noted Rashes: no rashes Neuro General: No confusion Cranial nerves: Yes Equal, round and reactive pupils present and Yes Normal hearing present Cognition (Neuro): normal cognition Gait exam (Neuro): Normal gait present Motor exam (neuro): 5/5 motor strength present throughout Deep tendon reflexes (DTR's): Right brachioradialis reflex intensity grade: 2+, Left brachioradialis reflex intensity grade: 2+, Right patellar reflex intensity grade: 2+ and Left patellar reflex intensity grade: 2+ Extrem General: No edema Results AMB Hemoglobin A1c AMB Hemoglobin A1c 6.1 % Last Edit by Sehlbi Villavicencio CMA on 09/04/24 12:44 Results Reviewed Results Reviewed: Laboratory Last Values Hgb A1c (Clinic) 6.1 % (4.0-6.0) H 09/04/24 12:42 Assessment & Plan Assessment & Plan (1) Medicare annual wellness visit, subsequent: Code(s): Z00.00 - Encounter for general adult medical examination without abnormal findings Plan: Patient is advised to eat healthy, keep well hydrated, keep active and have adequate sleep. (2) Type 2 diabetes mellitus with hyperglycemia: Code(s): E11.65 - Type 2 diabetes mellitus with hyperglycemia Plan: Decrease the amount of carbohydrate intake, pasta, bread, rice and potatoes are all sugar and that is aside from all the sweet stuff, remember that fruits are good but they are Sweet also. Hemoglobin A1c goal of less than 7.0 diet controlled (3) Age-related osteoporosis without current pathological fracture: Comment: October 2021, October 2023 Code(s): M81.0 - Age-related osteoporosis without current pathological fracture Plan: Up-to-date with bone density discussed about calcium and vitamin-D as well as medications that can help with bones (4) GERD (gastroesophageal reflux disease): Code(s): K21.9 - Gastro-esophageal reflux disease without esophagitis Qualifiers: Esophagitis presence: without esophagitis Qualified Code(s): K21.9 - Gastro-esophageal reflux disease without esophagitis Plan: Avoid the foods that causes that usually spicy foods, tomato products, juices, coffee, soda and foods that your sensitive to. After eating do not lie down, allow 3-4 hours before in lie down. And keep the head of bed above 30 degrees to avoid the acid from going up. (5) Hepatic steatosis: Comment: December 2023 Code(s): K76.0 - Fatty (change of) liver, not elsewhere classified Plan: Low-fat diet and exercise (6) Nephrolithiasis: Comment: 10/2023Nonobstructing 3 mm right renal calculus. 2. Tiny echogenic focus in the left renal cortex which has appearances of a benign angiomyolipoma. A follow-up ultrasound is recommended in one year's time to document stability. 3. Incidentally noted hepatic steatosis. Code(s): N20.0 - Calculus of kidney Plan: Patient follows up with urology, keep well hydrated. recent US negative (7) Breast cancer: Comment: DCIS breast [address] stein mammogram October 2021 Code(s): C50.919 - Malignant neoplasm of unspecified site of unspecified female breast Qualifiers: Breast location: unspecified site of breast Estrogen receptor status: unspecified Laterality: bilateral Patient sex: female Qualified Code(s): C50.911 - Malignant neoplasm of unspecified site of right female breast; C50.912 - Malignant neoplasm of unspecified site of left female breast Plan: Patient is up-to-date with mammogram Plan History of Present Illness The patient is a 69-year-old female presenting for an annual wellness visit. The patient has a history of Gastroesophageal Reflux Disease (GERD), which has been associated with increased gastric acidity and mild reflux symptoms. She rep orts experiencing burning sensations and pain after eating, which are somewhat alleviated by medication, although she does not take it consistently due to nausea. The symptoms have persisted since her gallbladder removal, which she feels has worsened her condition. The patient has hypercholesterolemia, with LDL cholesterol previously recorded at 120 mg/dL and currently at 110 mg/dL. She is not on medication for this condition and is advised to manage it through dietary modifications. The patient has a history of breast cancer diagnosed in 2004, and she is up to date with her mammograms, with the last one performed in November 2023. She has generalized anxiety disorder and osteoporosis, with the last bone density test conducted in November 2023. The patient has diabetes mellitus, with a recent Hemoglobin A1c of 6.1%, managed through diet without medication. She has a history of cholelithiasis and hepatic steatosis, with the latter being monitored for potential progression to cirrhosis. The patient experiences recurrent urinary tract infections and nephrolithiasis, with a 3 mm right renal calculus noted. She is advised to maintain hydration and follow up with urology. The patient reports atrophic vaginitis, which has been a recurrent issue. Health Maintenance - Mammogram: Last performed November 2023, up to date - Bone Density: Last performed November 2023, up to date - Colonoscopy: Last performed 2018, up to date - Vaccinations: Pneumonia and shingles vaccinations discussed - Lifestyle: Advised on low-fat diet and regular exercise Social History - Substance Use: Denies alcohol and tobacco use - Diet: Consumes whole grain bread and salads, avoids green leafy vegetables - Hydration: Drinks more than 32 ounces of water daily Review of Systems - Gastrointestinal: Reports burning sensation and pain after eating, constipation with dark brown stools - Cardiovascular: Denies chest pain, orthopnea, or syncope - Respiratory: Denies dyspnea or wheezing - Neurological: Denies dizziness or balance issues - Genitourinary: Reports frequent urination due to high water intake, nocturia once per night Physical Exam General: Cooperative, healthy appearing, comfortable, no acute distress and well developed Orientation: Patient oriented x3 Limitations: No limitations Head: Normal to inspection Ears: Hearing grossly normal bilaterally Nose: Normal external nose present Face and sinus: Normal facial exam Eyes: Appearance normal, both eyes and all related structures Neck: Normal visual inspection and Yes full ROM Respiratory: Normal respiratory effort and able to speak in complete sentences. Clear to auscultation bilaterally Cardiovascular: Regular rate and rhythm. Normal S1 and S2 GI: Normal to inspection. Soft to palpation and nontender Skin: No rashes or lesions noted Neuro: Patient oriented x3 Extremities: Normal to inspection Results - Labs: Hemoglobin A1c 6.1%, LDL cholesterol 110 mg/dL - Imagin mm right renal calculus noted on ultrasound Plan The patient will continue to manage her Gastroesophageal Reflux Disease GERD) with dietary modifications and medication as needed, despite experiencing nausea with consistent use. She is advised to follow up with gastroenterology to address ongoing symptoms and explore further management options. For hypercholesterolemia, the patient is encouraged to adhere to a low-fat diet and exercise regimen to manage her LDL cholesterol levels, as she is not currently on medication. Regular monitoring of cholesterol levels will be necessary to assess the effectiveness of lifestyle changes. The patient will maintain regular screenings for breast cancer, with her next mammogram scheduled for November 2024. For osteoporosis, the patient is advised to continue calcium and vitamin D supplementation and consider medications that support bone health. Diabetes management will focus on maintaining a Hemoglobin A1c below 7.0% through diet control, as the patient is not on medication. The patient is advised to maintain hydration to prevent recurrent urinary tract infections and nephrolithiasis, with a follow-up ultrasound planned in a year. A CT scan of the abdomen is ordered to investigate vague abdominal pain, with consideration of insurance coverage for the procedure. Patient was informed and verbally consented to the use of an ambient scribe for clinic note documentation during this visit. Discussion Notes During the visit, I discussed with the patient the management of her Gastroesophageal Reflux Disease (GERD), emphasizing the importance of dietary modifications and the use of medication as needed. We also reviewed her hypercholesterolemia management, focusing on lifestyle changes to control LDL cholesterol levels. I advised her to continue regular screenings for breast cancer and osteoporosis, and we discussed the importance of maintaining hydration to prevent urinary tract infections and nephrolithiasis. A CT scan of the abdomen was ordered to investigate her abdominal pain, and I explained the potential need for insurance approval. Patient Instructions - Continue dietary modifications to manage GERD and cholesterol levels. - Follow up with gastroenterology for ongoing symptoms. - Maintain hydration to prevent urinary tract infections and kidney stones. - Schedule and attend regular screenings for breast cancer and osteoporosis. - Monitor blood sugar levels and aim to keep Hemoglobin A1c below 7.0%. - Undergo a CT scan of the abdomen as scheduled. Orders: Orders CT abdomen w IV con Today R10.13 - Epigastric pain Blood Urea Nitrogen Today R10.13 - Epigastric pain Creatinine Today R10.13 - Epigastric pain AMB Hemoglobin A1c Today Z13.9 - Encounter for screening, unspecified Medications: Refilled albuterol sulfate 90 mcg/actuation 2 puffs PO Q4H PRN 8.5 grams 1RF bronchospasm M81.0 - Age-related osteoporosis without current pathological fracture Quality Reporting (2019) Depression/Bipolar (159/160/161/177) PHQ-9: Total score: 0 Coding Level of Care Code Medicare Subsequent (G0439) Diagnoses Medicare annual wellness visit, subsequent Z00.00 Type 2 diabetes mellitus with hyperglycemia E11.65 Age-related osteoporosis without current pathological fracture M81.0 Gastroesophageal reflux disease without esophagitis K21.9 Esophagitis presence: without esophagitis Hepatic steatosis K76.0 Nephrolithiasis N20.0 Bilateral malignant neoplasm of breast in female, unspecified estrogen receptor status, unspecified site of breast C50.911; C50.912 Breast location: unspecified site of breast Estrogen receptor status: unspecified Laterality: bilateral Patient sex: female Additional Codes PHQ-9 - 68441 - PHQ-9 Billing: Yes ([id number])
[2024-09-04 12:32] VITALS: BP 120/60; PULSE 66; RESP 18; TEMP 36.3; O2SAT 97; BMI 19.4
--- OUTSIDE RECORDS SUMMARY | 2024-09-04 13:13 | XMS_ITS | Patient Health Record ---
Author Organization [facility] Address [address] [place] [address] Care Team Providers Care Soil Expert Name Role Phone Francesco Monk Jr Reason For Referral No Information Plan Of Treatment No Information
== END 2024-09-04 13:24 | disposition home or self-care (01) ==
LOC: HO.HMCH 12:18
PROVIDERS: PCP Internal Medicine; Visit Provider Internal Medicine
DX: Z00.00 Encounter for general adult medical examination without abnormal findings (principal); E11.65 Type 2 diabetes mellitus with hyperglycemia; C50.911 Malignant neoplasm of unspecified site of right female breast; C50.912 Malignant neoplasm of unspecified site of left female breast; M81.0 Age-related osteoporosis without current pathological fracture; K21.9 Gastro-esophageal reflux disease without esophagitis; K76.0 Fatty (change of) liver, not elsewhere classified; N20.0 Calculus of kidney

== ENCOUNTER → 2024-09-04 12:17 | Outpatient (BNVA) | payer MEDICARE, SELFPAY | PROVIDERS: PCP Internal Medicine; Visit Provider Internal Medicine | DX: Z00.00 Encounter for general adult medical examination without abnormal findings (principal); E11.65 Type 2 diabetes mellitus with hyperglycemia; M81.0 Age-related osteoporosis without current pathological fracture; K21.9 Gastro-esophageal reflux disease without esophagitis; K76.0 Fatty (change of) liver, not elsewhere classified; N20.0 Calculus of kidney; Z85.3 Personal history of malignant neoplasm of breast | CPT/HCPCS: 83036; 96127 ==

== ENCOUNTER 2024-09-08 08:19 | Outpatient (AMB) | payer MEDICARE, SELFPAY ==
--- OUTSIDE RECORDS SUMMARY | 2023-09-14 06:30 | XMS_ITS ---
Author Organization [facility] Address [address] [facility] [address] Care Team Providers Care Paper Inspector Name Role Phone Andriy Nazario Primary Care Provider Jazmín Santana [phone] Allergies Allergen (clinical drug ingredient) Drug/Non Drug [...] Date Provider Diagnosis [facility] [address] [place] [address] 09/14/2023 Jazmín Summers Plan Of Treatment No Information Progress Notes * Berta AGUILAR ADOB:1955 (69 yo F)Acc No.[id number]:09/14/2023 Progress Notes Patient: Berta MEAD Provider: Ary Summers DPM :1955 A ge:68 Y S ex:Female Date:09/14/2023 Address:[address] [place], [place] [id number] Pcp:Andriy Nazario Subjective: * Chief Complaints: * 1 . Seen sooner. * ROS: G eneral/Constitutional: Nausea d enies. V omiting d enies. H baigail Thirst d enies. L oss appetite d [...] enies. C ardiovascular: Pacemaker d enies. M PATIENT SAFETY OFFICER d enies. W PW d enies. C [...] Date: 09/14/2023 Generated for Ludivina ahumada/Augie/Sandra on: 09/08/2024 08:28 AM EDT
--- NOTE | 2024-09-08 08:28 | A.OFFVIS_ITS ---
Vital Signs 09/08/24 08:37 Height 5 ft 2 in Weight 106 lb BMI 19.4 BP 96/56 L Blood Pressure Location Rt brachial Position Sitting Pulse 82 Pulse Source Pulse Oximeter Pulse Oximetry (%) 98 Oxygen Delivery Method Room Air Intake Visit Reasons: post prandial abd pain Intake Note: New pt for epigastric pain, post prandial. KAMILLA 2019 w/ Dr. Edwards CC; C.O. epigastric and umbilical pain, burning sensation, constipation. Pt denies any noticeable bleeding. No additional sx or concerns. Boarder Hand Required: No Accompanied by: Self / Same As Patient Allergies amoxicillin (AMOXICILLIN) Allergy (Intermediate, Verified 09/08/24 08:29) RASH penicillin V Allergy (Intermediate, Verified 09/08/24 08:29) rash Penicillins (PENICILLINS) Allergy (Intermediate, Verified 09/08/24 08:29) RASH Sulfa (Sulfonamide Antibiotics) (SULFA(SULFONAMIDE ANTIBIOTICS)) Allergy (Intermediate, Verified 09/08/24 08:29) RASH simvastatin (SIMVASTATIN) Allergy (Unknown, Verified 09/08/24 08:29) DIZZINESS sulfamethoxazole (From BACTRIM) Allergy (Unknown, Verified 09/08/24 08:29) RASH trimethoprim (From BACTRIM) Allergy (Unknown, Verified 09/08/24 08:29) RASH HPI HPI post prandial abd pain: Details: 69 years old female with past medical history of diabetes, osteoporosis, weight loss, anxiety, hypercholesteremia is here today for initial consultation. Patient was is had colonoscopy in the for of 2018, hyperplastic polyps found. Recommendation was made for patient to return in 10 years for colonoscopy. Patient reports epigastric pain postprandially. Patient reports that it happens with moves anything she eats. Patient had upper GI with barium swallow that showed increased gastric secretions suggesting increased gastric acidity as well as mild reflux. Currently patient is not on any PPI. Patient denies dyspepsia or odynophagia, however she reports occasional dysphagia. Patient denies melena, hematochezia, unintentional weight loss or ribbon like stools. 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 Father No problems noted. Sister Lymphoma Sister Dementia Sister Substance abuse Social History Housing: House Alcohol intake: never Patient Tobacco Use Status: Never used Tobacco e-Cigarette/Vaping Use: Never Used Second Hand Smoke Exposure: No service: No Current occupational status: retired Cognitive needs: No Hearing needs: No Vision needs: Yes Review of Systems Const Denies weight gain and Denies weight loss ENT Reports no additional complaints, Denies dysphagia and Denies odynophagia Card Reports no additional complaints Resp Reports no additional complaints GI Reports abdominal pain, Denies belching, Denies melena, Reports bloating, Denies change in bowel habits, Reports constipation, Denies dysphagia, Denies excessive flatus, Denies dyspepsia, Reports heartburn, Denies diarrhea, Denies loose stools, Denies nausea, Denies odynophagia and Denies vomiting Reports no additional complaints Musc Reports no additional complaints Neuro Reports no additional complaints Psych Reports no additional complaints Endo Reports no additional complaints Physical Exam Vital Signs: Last Vital Signs Pulse 82 09/08/24 08:37 BP 96/56 L 09/08/24 08:37 Pulse Ox 98 09/08/24 08:37 Oxygen Delivery Method Room Air 09/08/24 08:37 BMI result Body Mass Index 19.4 Const General: healthy appearing, no acute distress and well developed Nutritional Appearance: well nourished Orientation/consciousness: patient oriented x3 Resp Effort & Inspection: normal respiratory effort, able to speak in complete sentences, no tracheal deviation and symmetric chest movement Auscultation: clear to auscultation bilaterally Cardio Rate: regular rate GI Inspection: Yes normal to inspection and No distended Palpation (GI): Soft to palpation, not firm, nontender and No hepatosplenomegaly present Auscultation: normal bowel sounds General: Yes no CVA tenderness Back/Spine/Pelvis Back: no CVA tenderness Skin General skin exam: elasticity normal, turgor normal and dry skin Neuro General: patient oriented x3 Psych Appearance: grossly normal Mental Status: mental status grossly normal Results Reviewed Results Reviewed: UPPER GI WITH BARIUM SWALLOW IMPRESSION: Mild increased gastric secretions suggestive of increased gastric acidity. Mild gastroesophageal reflux. The esophagus is unremarkable.. Assessment & Plan Assessment & Plan (1) GERD (gastroesophageal reflux disease): Code(s): K21.9 - Gastro-esophageal reflux disease without esophagitis Category: Medical Qualifiers: Esophagitis presence: without esophagitis Qualified Code(s): K21.9 - Gastro-esophageal reflux disease without esophagitis (2) Dysphagia: Code(s): R13.10 - Dysphagia, unspecified Category: Medical Qualifiers: Dysphagia type: pharyngoesophageal phase Qualified Code(s): R13.14 - Dysphagia, pharyngoesophageal phase (3) Postprandial epigastric pain: Code(s): R10.13 - Epigastric pain (4) Postprandial abdominal bloating: Code(s): R14.0 - Abdominal distension (gaseous) Plan Will check H pylori and treat empirically if positive. Will check transglutaminase, vitamin B 12, folate, vitamin-D. Patient will start taking pantoprazole 20 mg daily. Avoid dietary triggers in late night snacking. Staying upright for minimum 3 hours after meals discussed with patient. Patient will return 2-3 months, sooner on as needed basis. She is agreeable to this plan and verbalizes understanding of instructions. She was given the opportunity to ask questions and all questions answered. Thank you for allowing me to participate in her care Orders: Orders H Pylori Breath Test Today K21.9 - Gastro-esophageal reflux disease without esophagitis Transglutaminase Ab IgG Today R10.9 - Unspecified abdominal pain Transglutaminase IgA Today R10.9 - Unspecified abdominal pain Vitamin D 25-OH (D2 and D3) Today E55.9 - Vitamin D deficiency, unspecified Vitamin B12 and Folate Today R19.7 - Diarrhea, unspecified Medications: New pantoprazole 20 mg PO DAILY 30 tabs 3RF Coding Level of Care Code New Pt Level 4 (60371) Diagnoses Gastroesophageal reflux disease without esophagitis K21.9 Esophagitis presence: without esophagitis Pharyngoesophageal dysphagia R13.14 Dysphagia type: pharyngoesophageal phase Postprandial epigastric pain R10.13 Postprandial abdominal bloating R14.0 Time Spent (min) 50 Comment 35 minutes spent with patient and additional 15 minutes spent reviewing her records
--- OUTSIDE RECORDS SUMMARY | 2024-09-08 08:29 | XMS_ITS | Patient Health Record ---
Author Organization [facility] Address [address] [place] [address] Care Team Providers Care Utility Worker [place] Name Role Phone Francesco Monk Jr Reason For Referral No Information Plan Of Treatment No Information
[2024-09-08 08:37] VITALS: BP 96/56; PULSE 82; O2SAT 98; BMI 19.4
== END 2024-09-08 09:32 | disposition home or self-care (01) ==
LOC: HO.HGI 08:20
PROVIDERS: PCP Internal Medicine; Visit Provider Nurse Practitioner Family
DX: K21.9 Gastro-esophageal reflux disease without esophagitis (principal); R13.14 Dysphagia, pharyngoesophageal phase; R10.13 Epigastric pain; R14.0 Abdominal distension (gaseous)
CPT/HCPCS: 99204

== ENCOUNTER 2024-09-08 08:19 | Outpatient (REF) | payer MEDICARE, SELFPAY ==
[2024-09-08 11:16] LABS: Folate 14.5 ng/mL (> or = 4.0); Vitamin B12 400 pg/mL (200-900)
[2024-09-11 22:38] LABS: Transglutaminase Ab IgG <1.0 U/mL
[2024-09-12 16:38] LABS: Vitamin D 25-OH, D2 <4 ng/mL; Vitamin D 25-OH, D3 35 ng/mL; Vitamin D 25-OH, Total 35 ng/mL (30-100)
== END 2024-09-08 08:20 | disposition home or self-care (01) ==
LOC: HO.LAB 08:19
PROVIDERS: PCP Internal Medicine; Visit Provider Nurse Practitioner Family
DX: K21.9 Gastro-esophageal reflux disease without esophagitis (principal); R10.13 Epigastric pain; R10.33 Periumbilical pain; K59.00 Constipation, unspecified; R13.10 Dysphagia, unspecified; R14.0 Abdominal distension (gaseous); R19.7 Diarrhea, unspecified; Z01.84 Encounter for antibody response examination
CPT/HCPCS: 36415; 82306; 82607; 82746; 83013; 86364; 99202

== ENCOUNTER 2024-09-22 12:51 | Outpatient (AMB) | payer MEDICARE, SELFPAY ==
--- OUTSIDE RECORDS SUMMARY | 2023-09-14 06:30 | XMS_ITS ---
Author Organization [facility] Address [address] [facility] [place] [address] Care Team Providers Care Clinical Microbiologist Name Role Phone Andriy Nazario Primary Care Provider Jazmín Santana [phone] Allergies Allergen (clinical drug ingredient) Drug/Non Drug [...] Date Provider Diagnosis [facility] [address] [place] [address] 09/14/2023 Jazmín Summers Plan Of Treatment No Information Progress Notes * Berta AGUILAR ADOB:1955 (69 yo F)Acc No.[id number]:09/14/2023 Progress Notes Patient: Berta MEAD Provider: Ary Summers DPM :1955 A ge:68 Y S ex:Female Date:09/14/2023 Address:[address] [place], [place] [id number] Pcp:Andriy Nazario Subjective: * Chief Complaints: * [...] enies. C ardiovascular: Pacemaker d enies. M PRESIDENT/[employer] EXPERIENCES d enies. W PW d enies. C [...] 09/14/2023 Generated for Ludivina ahumada/Augie/Sandra on: 0 09/22/2024 12:55 PM EDT
--- OUTSIDE RECORDS SUMMARY | 2024-09-22 12:56 | XMS_ITS | Patient Health Record ---
Author Organization [facility] Address [address] [place] [address] Care Team Providers Care Data Processing Consultant Name Role Phone Francesco Monk Jr [phone] Reason For Referral No Information Plan Of Treatment No Information
--- NOTE | 2024-09-22 13:20 | MHC.OFFVIS ---
Vital Signs 09/22/24 13:21 Height 5 ft 2 in Weight 106 lb BMI 19.4 BP 140/84 H Blood Pressure Location Rt brachial Position Sitting Pulse 84 Pulse Source Pulse Oximeter Pulse Oximetry (%) 99 Oxygen Delivery Method Room Air Intake Visit Reasons: rgent FUV. HP Tx. Alt Rx needed. Intake Note: Est pt for mgmt of chronic abd pain. Hx of HP infx. Difficulty with abx. CC; C.O. difficulty / contraindication with HP abx. Pt denies any additional changes at this time. Senior Informatica Developer Required: No Accompanied by: Self / Same As Patient Allergies amoxicillin (AMOXICILLIN) Allergy (Intermediate, Verified 09/08/24 08:29) RASH penicillin V Allergy (Intermediate, Verified 09/08/24 08:29) rash Penicillins (PENICILLINS) Allergy (Intermediate, Verified 09/08/24 08:29) RASH Sulfa (Sulfonamide Antibiotics) (SULFA(SULFONAMIDE ANTIBIOTICS)) Allergy (Intermediate, Verified 09/08/24 08:29) RASH simvastatin (SIMVASTATIN) Allergy (Unknown, Verified 09/08/24 08:29) DIZZINESS sulfamethoxazole (From BACTRIM) Allergy (Unknown, Verified 09/08/24 08:29) RASH trimethoprim (From BACTRIM) Allergy (Unknown, Verified 09/08/24 08:29) RASH HPI HPI rgent FUV. HP Tx. Alt Rx needed.: Details: GERD (gastroesophageal reflux disease) Dysphagia Postprandial epigastric pain Postprandial abdominal bloating Plan Will check H pylori and treat empirically if positive. Will check transglutaminase, vitamin B 12, folate, vitamin-D. Patient will start taking pantoprazole 20 mg daily. Avoid dietary triggers in late night snacking. Staying upright for minimum 3 hours after meals discussed with patient. Patient will return 2-3 months, sooner on as needed basis. She is agreeable to this plan and verbalizes understanding of instructions. She was given the opportunity to ask questions and all questions answered. ? Thank you for allowing me to participate in her care Orders H Pylori Breath Test Today K21.9 Transglutaminase Ab IgG Today R10.9 Transglutaminase IgA Today R10.9 Vitamin D 25-OH (D2 and D3) Today E55.9 Vitamin B12 and Folate Today R19.7 New pantoprazole 20 mg PO DAILY 30 tabs 3RF TODAY'S VISIT Patient is here today for requested visit. Patient was diagnosed with H pylori and started on antibiotic. Patient states that she took 2 days and became weak dizzy epigastric pain, disoriented. Patient stopped taking antibiotic. Just even today she is still feeling little foggy. Patient denies shortness of breath, chest pain, fever. Still has epigastric pain and occasional acid reflux. Patient has multiple allergy and is difficult to treat her with antibiotics. Patient denies any other GI concerning symptoms here to discuss the plan how to treat H pylori infection. [facility] Medical History (Updated 09/22/24 @ 19:28 by Amanda Brice [facility]) Helicobacter pylori (H. 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 Father No problems noted. Sister Lymphoma Sister Dementia Sister Substance abuse Social History Housing: House Alcohol intake: never Patient Tobacco Use Status: Never used Tobacco e-Cigarette/Vaping Use: Never Used Second Hand Smoke Exposure: No service: No Current occupational status: retired Cognitive needs: No Hearing needs: No Vision needs: Yes Review of Systems Const Denies weight gain and Denies weight loss ENT Reports no additional complaints, Denies dysphagia and Denies odynophagia Card Reports no additional complaints Resp Reports no additional complaints GI Reports abdominal pain, Denies belching, Denies melena, Reports bloating, Denies change in bowel habits, Reports constipation, Denies dysphagia, Denies excessive flatus, Denies dyspepsia, Reports heartburn, Denies diarrhea, Denies loose stools, Denies nausea, Denies odynophagia and Denies vomiting Reports no additional complaints Musc Reports no additional complaints Neuro Reports no additional complaints Psych Reports no additional complaints Endo Reports no additional complaints Physical Exam Vital Signs: Last Vital Signs Pulse 84 09/22/24 13:21 BP 140/84 H 09/22/24 13:21 Pulse Ox 99 09/22/24 13:21 Oxygen Delivery Method Room Air 09/22/24 13:21 BMI result Body Mass Index 19.4 Const General: healthy appearing, no acute distress and well developed Nutritional Appearance: well nourished Orientation/consciousness: patient oriented x3 Resp Effort & Inspection: normal respiratory effort, able to speak in complete sentences, no tracheal deviation and symmetric chest movement Auscultation: clear to auscultation bilaterally Cardio Rate: regular rate GI Inspection: Yes normal to inspection and No distended Palpation (GI): Soft to palpation, not firm, nontender and No hepatosplenomegaly present Auscultation: normal bowel sounds General: Yes no CVA tenderness Back/Spine/Pelvis Back: no CVA tenderness Skin General skin exam: elasticity normal, turgor normal and dry skin Neuro General: patient oriented x3 Psych Appearance: grossly normal Mental Status: mental status grossly normal Results Reviewed Results Reviewed: Laboratory Tests 09/08/24 09/08/24 09:25 09:55 Vitamin B12 400 25-OH Vitamin D Total 35 Folate 14.5 Tiss Transglutamin IgG <1.0 Tiss Transglutamin IgA <1.0 H. pylori Breath Test Positive Assessment & Plan Assessment & Plan (1) GERD (gastroesophageal reflux disease): Code(s): K21.9 - Gastro-esophageal reflux disease without esophagitis Category: Medical Qualifiers: Esophagitis presence: without esophagitis Qualified Code(s): K21.9 - Gastro-esophageal reflux disease without esophagitis (2) Dysphagia: Code(s): R13.10 - Dysphagia, unspecified Category: Medical Qualifiers: Dysphagia type: pharyngoesophageal phase Qualified Code(s): R13.14 - Dysphagia, pharyngoesophageal phase (3) Helicobacter pylori (H. pylori): Code(s): A04.8 - Other specified bacterial intestinal infections Category: Medical Plan Due to multiple allergies of antibiotics we will start her on Cipro and start her on Voquesna. Unsure if we will be able to get her insurance approval for Voquezna. If not we can reach out to local rep for coupon. Patient will call our office if she will have any GI concerning symptoms. Patient was encouraged to go to ED if she will have any shortness of breath or any adverse reaction after taking the antibiotics. Patient is due to go for upper endoscopy and colonoscopy. Message sent to surgical schedulers to book procedure for patient. Patient's PCP is sending her for CT scan. She has that in the beginning of October. I will see her in 5 weeks to re-evaluate and to discuss going for upper endoscopy and colonoscopy. Patient is agreeable to current plan of care and verbalizes understanding of instructions. She was given the opportunity to ask questions and all questions answered. Thank you for allowing me to participate in her care Medications: New vonoprazan (Voquezna) 20 mg PO DAILY 30 tabs 1RF ciprofloxacin HCl 500 mg PO BID 28 tabs 0RF Coding Level of Care Code Est Pt Level 4 (51305) Complex EM visit Add On G2211 Diagnoses Gastroesophageal reflux disease without esophagitis K21.9 Esophagitis presence: without esophagitis Pharyngoesophageal dysphagia R13.14 Dysphagia type: pharyngoesophageal phase Helicobacter pylori (H. pylori) A04.8 Time Spent (min) 35 Comment 25 minutes spent with patient and additional 10 minutes spent reviewing her records
[2024-09-22 13:21] VITALS: BP 140/84; PULSE 84; O2SAT 99; BMI 19.4
== END 2024-09-22 13:39 | disposition home or self-care (01) ==
LOC: HO.HGI 12:52
PROVIDERS: PCP Internal Medicine; Visit Provider Nurse Practitioner Family
DX: K21.9 Gastro-esophageal reflux disease without esophagitis (principal); R13.14 Dysphagia, pharyngoesophageal phase; A04.8 Other specified bacterial intestinal infections
CPT/HCPCS: 99214; G2211

== ENCOUNTER → 2024-09-22 12:51 | Outpatient (BNVA) | payer MEDICARE, SELFPAY | PROVIDERS: PCP Internal Medicine; Visit Provider Nurse Practitioner Family | DX: K21.9 Gastro-esophageal reflux disease without esophagitis (principal); R13.14 Dysphagia, pharyngoesophageal phase; A04.8 Other specified bacterial intestinal infections | CPT/HCPCS: 99212 ==

== ENCOUNTER 2024-10-12 10:58 | Outpatient (AMB) | payer MEDICARE, SELFPAY ==
--- OUTSIDE RECORDS SUMMARY | 2023-08-04 09:00 | XMS_ITS ---
Author Organization [facility] Address [address] [place] [address] Care Team Providers Care Supervisor Dog License Officer Name Role Phone Andriy Nazario Primary Care Provider Jazmín Santana [phone] Encounters Encounter Location Date Provider Diagnosis [facility] [address] [place] [address] 08/04/2023 Jazmín Summers Plan Of Treatment No Information Progress Notes * Berta AGUILAR ADOB:1955 (69 yo F)Acc No.[id number]:08/04/2023 Progress Notes Patient: Ary SANTO Berta Magana Provider: Ary Summers DPM :1955 A ge:68 Y S ex:Female Date:08/04/2023 Address:[address] [place], [place] [id number] Pcp:Andriy Nazario Subjective: * Chief Complaints: * [...] 0 08/04/2023 Generated for Printi ng/Falyricg/eTransmitting on: 10/12/2024 12:35 PM EDT
--- OUTSIDE RECORDS SUMMARY | 2023-09-14 06:30 | XMS_ITS ---
Author Organization [facility] Address [address] [facility] [place] [address] Care Team Providers Care Etiquette Coach Name Role Phone Andriy Nazario Primary Care Provider Jazmín Santana [phone] Allergies Allergen (clinical drug ingredient) Drug/Non Drug [...] 09/14/2023 Encounters Encounter Location Date Provider Diagnosis [facility] [address] [place] [address] 09/14/2023 Jazmín Summers Plan Of Treatment No Information Progress Notes * Berta AGUILAR ADOB:1955 (69 yo F)Acc No.[id number]:09/14/2023 Progress Notes Patient: Berta MEAD Provider: Ary Summers DPM :1955 A ge:68 Y S ex:Female Date:09/14/2023 Address:[address] [place], [place] [id number] Pcp:Andriy Nazario Subjective: * Chief Complaints: * [...] enies. C ardiovascular: Pacemaker d enies. 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 W PW d enies. C [...] 09/14/2023 Generated for Ludivina ahumada/Augie/Sandra on: 0 10/12/2024 12:35 PM EDT
--- OUTSIDE RECORDS SUMMARY | 2024-02-25 05:00 | XMS_ITS ---
Author Organization [facility] Address [address] [place] [address] Care Team Providers Care Intranet Support Name Role Phone Andriy Nazario Primary Care Provider Jazmín Santana [phone] Dorsey Medications Medication SIG (Take, Route, Frequency, Duration) Notes Start Date End Date Status Ciclopirox Olamine 0.77 % 1 application Externally Twice a day; Duration: 30 days Active Albuterol Sulfate HFA 108 (90 Base) MCG/ACT 1 puff as needed Inhalation every 4 hrs Active Encounters Encounter Location Date Provider Diagnosis [facility] [address] [place] [address] 02/25/2024 Jazmín Summers Plan Of Treatment No Information Progress Notes * Berta AGUILAR ADOB:1955 (69 yo F)Acc No.[id number]:02/25/2024 Progress Note Patient: Ary SANTO Berta Magana Provider: Ary Summers DPM :1955 A ge:68 Y S ex:Female Date:02/25/2024 Address:[address] [place] [address] [id number] Pcp:Andriy Nazario Subjective: * Chief Complaints: * [...] 02/25/2024 Generated for Ludivina ahumada/Augie/Sandra on: 0 10/12/2024 12:35 PM EDT
--- OUTSIDE RECORDS SUMMARY | 2024-03-03 05:00 | XMS_ITS ---
Author Organization [facility] Address [address] [place] [address] Care Team Providers Care Produce Buyer Name Role Phone Andriy Nazario Primary Care Provider Jazmín Santana [phone] Encounters Encounter Location Date Provider Diagnosis [facility] [address] [place] [address] 03/03/2024 Jazmín Summers Plan Of Treatment No Information Progress Notes * Berta AGUILAR ADOB:1955 (69 yo F)Acc No.[id number]:03/03/2024 Progress Note Patient: Ary SANTO Berta Magana Provider: Ary Summers DPM :1955 A ge:68 Y S ex:Female Date:03/03/2024 Address:[address] [place], [place] [id number] Pcp:Andriy Nazario Subjective: * Chief Complaints: * * Medical History: Objective: * Vitals: Assessment: Plan: * Treatment: * Images: * The named appointment provid er may or may not be the originator of this progress note, and it is not deemed complete until electronically signed by the appointment provider. Sign off status: Pending * Provider: Ary Summers DPM Date: 03/03/2024 Generated for Printi ng/Faxing/eTransmitting on: 0 10/12/2024 12:35 PM EDT
--- NOTE | 2024-10-12 11:06 | MHC.PC.OV ---
Vital Signs 10/12/24 11:07 Height 5 ft 2 in Weight 106 lb BMI 19.4 BP 122/62 Blood Pressure Location Lt brachial Position Sitting Pulse 88 Pulse Source Pulse Oximeter Pulse Oximetry (%) 99 Oxygen Delivery Method Room Air Intake Visit Reasons: Lump on head Allergies amoxicillin (AMOXICILLIN) Allergy (Intermediate, Verified 10/12/24 11:07) RASH penicillin V Allergy (Intermediate, Verified 10/12/24 11:07) rash Penicillins (PENICILLINS) Allergy (Intermediate, Verified 10/12/24 11:07) RASH Sulfa (Sulfonamide Antibiotics) (SULFA(SULFONAMIDE ANTIBIOTICS)) Allergy (Intermediate, Verified 10/12/24 11:07) RASH simvastatin (SIMVASTATIN) Allergy (Unknown, Verified 10/12/24 11:07) DIZZINESS sulfamethoxazole (From BACTRIM) Allergy (Unknown, Verified 10/12/24 11:07) RASH trimethoprim (From BACTRIM) Allergy (Unknown, Verified 10/12/24 11:07) RASH Medication List - Last Reconciled 10/12/24 by Andriy Nazario MD albuterol sulfate 90 mcg/actuation 2 puffs PO Q4H PRN alprazolam 0.25 mg PO BEDTIME PRN ciprofloxacin HCl 500 mg PO BID vonoprazan (Voquezna) 20 mg PO DAILY Tobacco use date assessed: 07/14/24 Fall risk assessment: No Falls in past year Last assessed Fall Risk: 10/12/24 Dental Screening Dental Screen Date: 07/14/24 [facility] Medical History (Updated 10/12/24 @ 11:37 by Andriy Nazario MD) Helicobacter pylori (H. 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 Father No problems noted. Sister Lymphoma Sister Dementia Sister Substance abuse Social History Housing: House Alcohol intake: never Patient Tobacco Use Status: Never used Tobacco Tobacco use type: Cigarette e-Cigarette/Vaping Use: Never Used Second Hand Smoke Exposure: No service: No Current occupational status: retired Cognitive needs: No Hearing needs: No Vision needs: Yes Questionnaire PHQ-9 Over the last 2 weeks, how often have you been bothered by any of the following problems? 1. Little interest or pleasure in doing things: not at all 2. Feeling down, depressed, or hopeless: not at all 3. Trouble falling or staying asleep, or sleeping too much: not at all 4. Feeling tired or having little energy: not at all 5. Poor appetite or overeating: not at all 6. Feeling bad about yourself - or that you are a failure or have let yourself or your family down: not at all 7. Trouble concentrating on things, such as reading the newspaper or watching television: not at all 8. Moving or speaking so slowly that other people could have noticed. Or the opposite - being so fidgety or restless that you have been moving around a lot more than usual: not at all 9. Thoughts that you would be better off or of hurting yourself in some way: not at all Total score: 0 Depression Screening Interpretation: Negative Depression Screening Done: Yes 70626 - PHQ-9 Billing: Yes Source: Developed by Drs. Donn Storm, Génesis Edwards, Petros Woodard and colleagues, with an educational regla from [employer]. Thrive Questionnaire Date Thrive assessed: 07/10/24 I am a: Patient What is your living situation today?: I have a steady place to live Within the past 12 months, did the food you bought not last and you didn't have the money to get more?: Never true Within the past 12 months, did you worry whether your food would run out before you got money to buy more?: Never true Do you have trouble paying for medicines?: No Do you have trouble getting transportation to medical appointments?: No Do you have trouble paying your heating and electricity bill?: No Do you have trouble taking care of your child, family member or friend?: No Do you have trouble with day-to-day activities such as bathing, preparing meals, shopping, managing finances, etc.?: No Are you currently unemployed and looking for a job?: No Are you interested in more education?: No Currently or been in a relationship where the following occur: No concerns reported THRIVE Score: 0 AUDIT C Alcohol Use Questionnaire (AUDIT-C) 1. How often do you have a drink containing alcohol?: Never 3. How often do you have six or more drinks on one occasion?: Never Total Score: 0 EDY-7 AMB Questionnaire EDY-7 Date EDY - 7 assessed: 07/14/24 Source: Developed by Drs. Donn Storm, Génesis Edwards, Petros Woodard and colleagues, with an educational regla from [employer]. Physical exam (Primary Care) Vital Signs: Last Vital Signs Pulse 88 10/12/24 11:07 BP 122/62 10/12/24 11:07 Pulse Ox 99 10/12/24 11:07 Oxygen Delivery Method Room Air 10/12/24 11:07 BMI result Body Mass Index 19.4 Tobacco/Smoking Status: Tobacco use Status Tobacco use date assessed 07/14/24 10/12/24 11:08 Patient Tobacco Use Status Never used Tobacco 10/12/24 11:08 Tobacco use type Cigarette 10/12/24 11:08 e-Cigarette/Vaping Use Never Used 10/12/24 11:08 PHQ-9: PHQ-9 Score PHQ-9: Total score 0 10/12/24 11:31 Depression Screening Interpretation: Negative Thrive Assessment: Date of Thrive Assessment Date Thrive assessed 07/10/24 10/12/24 11:08 Currently or been in a relationship where the following occur: No concerns reported Const General: alert; No acute distress Eyes Conjunctivae: conjunctivae normal Resp Auscultation: clear to auscultation bilaterally Cardio Rate: regular rate Rhythm: regular rhythm GI Inspection: Yes normal to inspection Extrem General: Yes normal to inspection and No edema Coding Level of Care Code Est Pt Level 4 (37885) Complex EM visit Add On G2211 Diagnoses Type 2 diabetes mellitus with hyperglycemia E11.65 Generalized anxiety disorder F41.1 Skull asymmetry Q75.9 Headache R51.9 Family history of dementia Z81.8 Additional Codes PHQ-9 - 48155 - PHQ-9 Billing: Yes ([id number]) Assessment & Plan Assessment & Plan (1) Type 2 diabetes mellitus with hyperglycemia: Code(s): E11.65 - Type 2 diabetes mellitus with hyperglycemia Category: Medical (2) Generalized anxiety disorder: Code(s): F41.1 - Generalized anxiety disorder Category: Medical (3) Skull asymmetry: Code(s): Q75.9 - Congenital malformation of skull and face bones, unspecified Category: Medical (4) Headache: Code(s): R51.9 - Headache, unspecified Category: Medical (5) Family history of dementia: Code(s): Z81.8 - Family history of other mental and behavioral disorders Category: Medical Plan History of Present Illness The patient is a 69-year-old female presenting for a follow-up visit after her annual wellness visit in August 2024. She has a history of Gastroesophageal Reflux Disease (GERD) and was referred to a supervisor opening and picking, where she was prescribed antibiotics for Helicobacter pylori infection. The initial antibiotic regimen caused significant adverse effects, including numbness, leading to a change in medication. She reports improvement with the new regimen, although she still experiences shakiness. The patient has a history of breast cancer diagnosed in 2004, and she expresses concern about a palpable lump on her head, which her therapist also noted. She associates this with her past cancer history and reports weight loss, although she is unsure if it is related to her current symptoms or the antibiotics. She has a history of asthma, generalized anxiety disorder, nephrolithiasis, diabetes mellitus, and cholelithiasis. Her anxiety has been exacerbated by recent health concerns, and she reports significant anxiety related to medical procedures, particularly imaging studies. Preventative care measures include a colonoscopy in 2017, bone density assessment in November 2023, and a mammogram in November 2023. Health Maintenance - Colonoscopy in 2017 - Bone density assessment in November 2023 - Mammogram in November 2023 Social History Review of Systems - Neurological: Reports numbness and shakiness associated with antibiotic use. - Musculoskeletal: Reports a palpable lump on the head. - Psychiatric: Reports significant anxiety related to medical procedures. Physical Exam Results Plan Patient was informed and verbally consented to the use of an ambient scribe for clinic note documentation during this visit. 1. Gastroesophageal Reflux Disease (Gerd) The patient was referred to a supervisor opening and picking and prescribed antibiotics for Helicobacter pylori infection, which initially caused adverse effects necessitating a change in medication. She reports improvement with the new regimen, although she still experiences shakiness. 2. History Of Breast Cancer The patient expresses concern about a palpable lump on her head, which her therapist also noted, and associates this with her past cancer history. She reports weight loss, although she is unsure if it is related to her current symptoms or the antibiotics. 3. Generalized Anxiety Disorder The patient's anxiety has been exacerbated by recent health concerns, and she reports significant anxiety related to medical procedures, particularly imaging studies. A referral to neurology was discussed, and a CAT scan was planned to address her concerns. Discussion Notes During the visit, we discussed the patient's ongoing treatment for Helicobacter pylori infection and the side effects experienced with the initial antibiotic regimen. We also addressed her concerns about a palpable lump on her head and the associated anxiety, considering her history of breast cancer. A referral to neurology and a CAT scan were planned to further investigate her symptoms and provide reassurance. Patient Instructions - Continue the current antibiotic regimen for Helicobacter pylori infection as prescribed. - Attend the scheduled CAT scan and follow up with neurology as planned. - Monitor for any changes in the lump on the head and report any new symptoms. Orders: Orders CT head/brain wo IV con Today Q75.9 - Congenital malformation of skull and face bones, unspecified, R51.9 - Headache, unspecified Referrals Neurology Referral Z81.8 - Family history of other mental and behavioral disorders Medications: New alprazolam 1 hour before the procedure 0.25 mg PO BEDTIME PRN 7 tabs 0RF sleep F41.1 - Generalized anxiety disorder
[2024-10-12 11:07] VITALS: BP 122/62; PULSE 88; O2SAT 99; BMI 19.4
--- OUTSIDE RECORDS SUMMARY | 2024-10-12 12:35 | XMS_ITS | Patient Health Record ---
Author Organization [facility] Address [address] [place] [address] Care Team Providers Care Microsoft Developer Name Role Phone Francesco Monk Jr [phone] Reason For Referral No Information Plan Of Treatment No Information
--- OUTSIDE RECORDS SUMMARY | 2024-10-12 12:36 | XMS_ITS | Patient Health Record ---
Author Organization [facility] Address [address] [place] [address] Care Team Providers Care Guitar Teacher Name Role Phone Andriy Nazario Primary Care Provider Jazmní Santana [phone] Allergies Allergen (clinical drug ingredient) Drug/Non Drug [...] Are you an other tobacco user? No Encounters Encounter Location Date Provider Diagnosis [facility] [address] [place] [address] 03/02/2024 Jazmín Summers Plan Of Treatment No Information Insurance Providers Payer Name Payer Address Payer Phone Subscriber Number Group Number Insured Name Patient Relationship to Insured Coverage Start Date Coverage End Date Medicare National Govt S[employer] [address] [place] [address] [id number] Berta Aguilar Self - patient is the insured [employer] [address] [place] [address] [phone] [id number] Berta Aguilar Self - patient is the insured Medical (General) History Medical History History ICD Code asthma breast cancer 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
== END 2024-10-12 11:50 | disposition home or self-care (01) ==
LOC: HO.HMCH 10:59
PROVIDERS: PCP Internal Medicine; Visit Provider Internal Medicine
DX: E11.65 Type 2 diabetes mellitus with hyperglycemia (principal); F41.1 Generalized anxiety disorder; Q75.9 Congenital malformation of skull and face bones, unspecified; R51.9 Headache, unspecified; Z81.8 Family history of other mental and behavioral disorders

== ENCOUNTER → 2024-10-12 10:58 | Outpatient (BNVA) | payer MEDICARE, SELFPAY | PROVIDERS: PCP Internal Medicine; Visit Provider Internal Medicine | DX: E11.65 Type 2 diabetes mellitus with hyperglycemia (principal); F41.1 Generalized anxiety disorder; R51.9 Headache, unspecified; K21.9 Gastro-esophageal reflux disease without esophagitis; J45.909 Unspecified asthma, uncomplicated; Q75.9 Congenital malformation of skull and face bones, unspecified; Z81.8 Family history of other mental and behavioral disorders | CPT/HCPCS: 96127; 99212 ==

== ENCOUNTER 2024-10-19 06:41 | Outpatient (REF) | payer MEDICARE, SELFPAY ==
--- OUTSIDE RECORDS SUMMARY | 2023-08-04 09:00 | XMS_ITS ---
Author Organization [facility] Address [address] [place] [address] Care Team Providers Care Thermoscrew Operator Name Role Phone Andriy Nazario Primary Care Provider Jazmín Santana [phone] Encounters Encounter Location Date Provider Diagnosis [facility] [address] [place] [address] 08/04/2023 Jazmín Summers Plan Of Treatment No Information Progress Notes * Berta AGUILAR ADOB:1955 (69 yo F)Acc No.[id number]:08/04/2023 Progress Notes Patient: Ary SANTO Berta Magana Provider: Ary Summers DPM :1955 A ge:68 Y S ex:Female Date:08/04/2023 Address:[address] [place], [place] [id number] Pcp:Andriy Nazario Subjective: * Chief Complaints: * [...] 0 08/04/2023 Generated for Printi ng/Falyricg/eTransmitting on: 10/19/2024 06:44 AM EDT
--- OUTSIDE RECORDS SUMMARY | 2023-09-14 06:30 | XMS_ITS ---
Author Organization [facility] Address [address] [facility] [address] Care Team Providers Care Payroll Supervisor Name Role Phone Andriy Nazario Primary Care Provider Jazmín Santana [phone] Allergies Allergen (clinical drug ingredient) Drug/Non Drug [...] 09/14/2023 Encounters Encounter Location Date Provider Diagnosis [facility] [address] [place] [address] 09/14/2023 Jazmín Summers Plan Of Treatment No Information Progress Notes * Berta AGUILAR ADOB:1955 (69 yo F)Acc No.[id number]:09/14/2023 Progress Notes Patient: Berta MEAD Provider: Ary Summers DPM :1955 A ge:68 Y S ex:Female Date:09/14/2023 Address:[address] [place], [place] [id number] Pcp:Andriy Nazario Subjective: * Chief Complaints: * [...] enies. C ardiovascular: Pacemaker d enies. 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 W PW d enies. C [...] 09/14/2023 Generated for Ludivina ahumada/Augie/Sandra on: 0 10/19/2024 06:44 AM EDT
--- OUTSIDE RECORDS SUMMARY | 2024-02-25 05:00 | XMS_ITS ---
Author Organization [facility] Address [address] [place] [address] Care Team Providers Care Housekeeping Department Worker Name Role Phone Andriy Nazario Primary Care Provider Jazmín Santana [phone] Dorsey Medications Medication SIG (Take, Route, Frequency, Duration) Notes Start Date End Date Status Ciclopirox Olamine 0.77 % 1 application Externally Twice a day; Duration: 30 days Active Albuterol Sulfate HFA 108 (90 Base) MCG/ACT 1 puff as needed Inhalation every 4 hrs Active Encounters Encounter Location Date Provider Diagnosis [facility] [address] [place] [address] 02/25/2024 Jazmín Summers Plan Of Treatment No Information Progress Notes * Berta AGUILAR ADOB:1955 (69 yo F)Acc No.[id number]:02/25/2024 Progress Note Patient: Ary SANTO Berta Magana Provider: Ary Summers DPM :1955 A ge:68 Y S ex:Female Date:02/25/2024 Address:[address] [place] [address] [id number] Pcp:Andriy Nazario Subjective: * Chief Complaints: * [...] 02/25/2024 Generated for Ludivina ahumada/Augie/Sandra on: 0 10/19/2024 06:44 AM EDT
--- OUTSIDE RECORDS SUMMARY | 2024-03-03 05:00 | XMS_ITS ---
Author Organization [facility] Address [address] [place] [address] Care Team Providers Care Compensation Director Name Role Phone Andriy Nazario Primary Care Provider Jazmín Santana [phone] Encounters Encounter Location Date Provider Diagnosis [facility] [address] [place] [address] 03/03/2024 Jazmín Summers Plan Of Treatment No Information Progress Notes * Berta AGUILAR ADOB:1955 (69 yo F)Acc No.[id number]:03/03/2024 Progress Note Patient: Ary SANTO Berta Magana Provider: Ary Summers DPM :1955 A ge:68 Y S ex:Female Date:03/03/2024 Address:[address] [place], [place] [id number] Pcp:Andriy Nazario Subjective: * Chief Complaints: * * Medical History: Objective: * Vitals: Assessment: Plan: * Treatment: * Images: * The named appointment provid er may or may not be the originator of this progress note, and it is not deemed complete until electronically signed by the appointment provider. Sign off status: Pending * Provider: Ary Summers DPM Date: 03/03/2024 Generated for Printi ng/Falyricg/eTransmitting on: 10/19/2024 06:45 AM EDT
--- NOTE | ~2024-10-19 | CT_ITS ---
CLINICAL HISTORY: R10.13 - Epigastric pain CT ABDOMEN WITH CONTRAST Comparison: None provided Findings: No basilar consolidation or pleural effusion. Partial imaging of a 2.7 x 3.5 cm irregular density in the right pericardial region, image one, series 4. Density measurements = 38 HU. The gallbladder is surgically absent. The common bile duct is dilated up to 9 mm. Mild intrahepatic biliary ductal dilatation. No acute abnormalities in the solid organs. No intrarenal calculus. No bowel obstruction, pneumoperitoneum, or pneumatosis. The stomach is underdistended limiting evaluation for wall thickening. Normal caliber abdominal aorta with patent mesenteric arteries. Large amount of formed stool in the visualized colon. No ascites or organized fluid collection. No significant mesenteric edema. The bones are intact. IMPRESSION: 1. Underdistended stomach. Limited evaluation for wall thickening/gastritis. No perigastric edema. 2. Prior cholecystectomy with biliary ductal dilatation. No visible choledocholithiasis. 3. No acute obstructive uropathy or nephrolithiasis. 4. Indeterminate right pericardial density. Follow-up dedicated CT chest without and with contrast may help with further characterization, ideally with prior studies for comparison, if any. This document has been electronically signed by: Linda Mcclure DO on 10/19/2024 15:53:24
--- OUTSIDE RECORDS SUMMARY | 2024-10-19 06:44 | XMS_ITS | Patient Health Record ---
Author Organization [facility] Address [address] [place] [address] Care Team Providers Care Agency Recruiter Name Role Phone Francesco Monk Jr Reason For Referral No Information Plan Of Treatment No Information
--- OUTSIDE RECORDS SUMMARY | 2024-10-19 06:45 | XMS_ITS | Patient Health Record ---
Author Organization [facility] Address [address] [place] [address] Care Team Providers Care Almond Grinder Name Role Phone Andriy Nazario Primary Care Provider Jazmín Santana [phone] Allergies Allergen (clinical drug ingredient) Drug/Non Drug [...] No Encounters Encounter Location Date Provider Diagnosis [facility] [address] [place] [address] 03/02/2024 Jazmín Summers Plan Of Treatment No Information Insurance Providers Payer Name Payer Address Payer Phone Subscriber Number Group Number Insured Name Patient Relationship to Insured Coverage Start Date Coverage End Date Medicare National Govt Svcs [employer] [address] [place] [address] [id number] Berta Aguilar Self - patient is the insured [employer] [address] [place] [address] [phone] [id number] Berta Aguilar Self - patient is the insured Medical (General) History Medical History History ICD Code asthma breast cancer 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
[2024-10-19] MEDS: iohexoL 350 MG/ML 100 ML INFUS..BTL IV (08:13)
[2024-10-19] MEDS: Barium Sulfate Oral (Berry) 450 ML ORAL.SUSP 900 ML PO (08:14)
[2024-10-19 09:17] LABS: Creatinine POC 0.9 mg/dL (0.5-1.4); GFR POC > 60
== END 2024-10-19 06:42 | disposition home or self-care (01) ==
LOC: HO.CT 06:41
PROVIDERS: PCP Internal Medicine; Visit Provider Internal Medicine
DX: R10.13 Epigastric pain (principal)
CPT/HCPCS: 74160; 82565; Q9967

== ENCOUNTER → 2024-10-19 06:43 | Outpatient (BNV) | payer MEDICARE, SELFPAY | PROVIDERS: PCP Internal Medicine; Visit Provider Radiology Diagnostic Radiology | DX: R10.13 Epigastric pain (principal) | CPT/HCPCS: 74160 ==

== ENCOUNTER 2024-10-31 12:00 | Outpatient (AMB) | payer MEDICARE, SELFPAY ==
--- OUTSIDE RECORDS SUMMARY | 2023-08-04 09:00 | XMS_ITS ---
Author Organization [facility] Address [address] [place] [address] Care Team Providers Care Ventilating Equipment Installer Name Role Phone Andriy Nazario Primary Care Provider Jazmín Santana [phone] Encounters Encounter Location Date Provider Diagnosis [facility] [address] [place] [address] 08/04/2023 Jazmín Summers Plan Of Treatment No Information Progress Notes * Berta AGUILAR ADOB:1955 (69 yo F)Acc No.[id number]:08/04/2023 Progress Notes Patient: Ary SANTO Berta Magana Provider: Ary Summers DPM :1955 A ge:68 Y S ex:Female Date:08/04/2023 Address:[address] [place], [place] [id number] Pcp:Andriy Nazario Subjective: * Chief Complaints: * [...] DPM Date: 0 08/04/2023 Generated for Printi ng/Faxing/eTransmitting on: 10/31/2024 02:56 PM EDT
--- OUTSIDE RECORDS SUMMARY | 2023-09-14 06:30 | XMS_ITS ---
Author Organization [facility] Address [address] [facility] [place] [address] Care Team Providers Care Heavy Machinery Operator Name Role Phone Andriy Nazario Primary Care Provider Jazmín Santana [phone] Allergies Allergen (clinical drug ingredient) Drug/Non Drug Allergy documented on EMR Reaction Allergy Type Onset Date Status amoxicillin Amoxicillin rash Drug Allergy Act obdulio sulfamethoxazole / trimethoprim Bactrim rash Drug Allergy Active simvastatin Simvastatin dizziness Drug Allergy Act obdulio trimethoprim Trimethoprim rash Drug Allergy A ctive codeine Codeine makes her drowsy Drug Allergy Active Substance with penicillin structure and antibacterial mechanism of action (substance) Penicillins rash Drug Allergy Active Substance with sulfonamide structure and antibacterial mechanism of action (substance) Sulfa Antibiotics rash Drug Allergy Active REASON FOR VISIT seen sooner Medications Medication SIG (Take, Route, Frequency, Duration) Notes Start Date End Date Status Albuterol Sulfate HFA 108 (90 Base) MCG/ACT 1 puff as needed Inhalation every 4 hrs Active Social History Tobacco Use: Social History Observation Description Date Details (start date - stop date) Never Smoker NA - NA Tobacco Use/Smoking Question Answer Notes Are you a: nonsmoker Additional Findings: Tobacco Non-User Current no n-smoker Alcohol Screen Question Answer Notes Did you have a drink containing alcohol in the p ast year? No Points 0 Interpretation Negative Tobacco use other than smoking: Question Answer Notes Are you an other tobacco user? No Vital Signs Height 5 ft 2 in in 09/14/2023 Weight 125 lbs 09/14/2023 BMI 22.86 kg/m2 09/14/2023 Encounters Encounter Location Date Provider Diagnosis [facility] [address] [place] [address] 09/14/2023 Jazmín Sumemrs Plan Of Treatment No Information Progress Notes * Berta AGUILAR ADOB:1955 (69 yo F)Acc No.[id number]:09/14/2023 Progress Notes Patient: Berta MEAD Provider: Ary Summers DPM :1955 A ge:68 Y S ex:Female Date:09/14/2023 Address:[address] [place], [place] [address] Pcp:Andriy Nazario Subjective: * Chief Complaints: * 1 . Seen sooner. * ROS: G eneral/Constitutional: Nausea d enies. V omiting d enies. H abigail Thirst d enies. L oss appetite d enies. C hills d enies. F atigue d enies.?Fever d enies. N ight Sweats d enies. U nexplained weight loss d enies. U nexplained weight gain d enies. H EENTM: Dentures a dmits. D izziness a dmits. G lasses/contacts a dmits. R etinopathy d enies. B lurred/double vision a dmits. T MJ?denies. D ischarge/drainage d enies. I mplants d enies. S ore throat d enies. D ental implants d enies. H halie of hearing d enies. D ifficulty chewing/swallowing/speaking d enies. N ose bleeds d enies. S ore mouth d enies. ? R espiratory: On Oxygen d enies. P neumonia/pleurisy d enies.?Bronchitis d enies. E mphysema d enies. C oughing d enies. C ough blood?denies. S hortness of breath a dmits. W heezing d enies. C ardiovascular: Pacemaker d enies. M YEAST CULTURE DEVELOPER d enies. W PW d enies. C HF d enies. H eart attack d enies. S eptal defect d enies. R apid beat d enies. C hest pain d enies. A trial Fib. d enies. M urmur/Palpitations d enies. G astrointestinal: Hemorrhoids d enies. S tomach/Abdominal pain d enies. D ark blood stool d enies. I rritable bowel d enies. C onstipation d enies. D iarrhea d enies. H ematology: Swelling d enies. C lots d enies. V aricose Veins d enies. B ruising d enies. B leeding problem d enies. G enitourinary: Blood urine d enies. F requent/Painfu/urination/bladder control d enies. K idney stones d enies. I nfection (UTI) d enies. N ephropathy d enies. s ex trans dis (STD) d enies. P rostate d enies. M usculoskeletal: Hammertoes d enies. B unions d enies. B ack Pain a dmits. M uscle Cramps/ Resting d enies. M uscle cramps / walking a dmits.?Generalized aches and pains d enies. W eakness d enies. I nteg.: Wilhelm d enies. S cars d enies. C orns/calluses?denies. I ngrown nails d enies. P ainful nails d enies. O pen Sores d enies. R ashes d enies. N eurologic: Difficulty sleeping d enies. B rain disorder d enies. N umbness d enies. B alance trouble d enies. C onfusion d enies. F ainting/blackouts d enies. T ingling d enies. T remors d enies. * Medical History: A sthma, Breast cancer, Ductal carcinoma in situ of both breasts, Reflux ( GERD), Hypercholesterolemia, Impaired Glucose Tolerance, Osteopenia, Shortness of breath, Cataracts, Osteoporosis. * Surgical History: c esarean section , lumpectomy , Breast Surgery . * Family History: M other: , cancer, diagnosed with Family history of arthritis, Other malignant neoplasm of unspecified site. F ather: , Cancer, diagnosed with Other malignant neoplasm of unspecified site. P aternal uncle: Stroke, heart attack, diagnosed with Family history of arthritis, Unspecified essential hypertension, Unspecified heart disease. M aternal uncle: Srtoke, heart attack, diagnosed with Family history of arthritis, Unspecified essential hypertension, Unspecified heart disease. S iblings: lymphoma, dementiaSister- Cancer, diagnosed with Family history of arthritis, Diabetic - NIDDM, Unspecified essential hypertension, Other malignant neoplasm of unspecified site. P aternal aunt: diagnosed with Unspecified essential hypertension. M aternal aunt: diagnosed with Unspecified essential hypertension. * Social History: T obacco Use: T obacco Use/Smoking A re you a: n onsmoker A dditional Findings: Tobacco Non-User C urrent non-smoker Tobacco use other than smoking A re you an other tobacco user? N o D rugs/Alcohol: D rugs H ave you used drugs other than those for medical reasons in the past 12 months? N o Alcohol Screen D id you have a drink containing alcohol in the past year? N o P oints 0 I nterpretation N egative M iscellaneous: C affeine: yes, frequency:, 2-3 cups per day. Children: yes, 3. Marital status: . Occupation: Retired. * Medications: T aking Albuterol Sulfate HFA 108 (90 Base) MCG/ACT Aerosol Solution 1 puff as needed Inhalation every 4 hrs * Allergies: A moxicillin: rash, Penicillins: rash, Sulfa Antibiotics: rash, Simvastatin: dizziness, Bactrim: rash, Trimethoprim: rash, Codeine: makes her drowsy - Allergy. Objective: * Vitals: H t:5 ft 2 in, Wt:125, BMI:22.86, Shoe size:8-8.5, Ht-cm: 157.48 cm, Wt-k.7 kg. Assessment: Plan: * Treatment: * Images: * The named appointment provid er may or may not be the originator of this progress note, and it is not deemed complete until electronically signed by the appointment provider. Sign off status: Pending * Provider: Ary Summers DPM Date: 0 09/14/2023 Generated for Ludivina ahumada/Augie/Sandra on: 0 10/31/2024 02:56 PM EDT
--- OUTSIDE RECORDS SUMMARY | 2024-02-25 05:00 | XMS_ITS ---
Author Organization [facility] Address [address] [place] [address] Care Team Providers Care Field Tax Auditor Name Role Phone Andriy Nazario Primary Care Provider Jazmín Santana [phone] Dorsey Medications Medication SIG (Take, Route, Frequency, Duration) Notes Start Date End Date Status Ciclopirox Olamine 0.77 % 1 application Externally Twice a day; Duration: 30 days Active Albuterol Sulfate HFA 108 (90 Base) MCG/ACT 1 puff as needed Inhalation every 4 hrs Active Encounters Encounter Location Date Provider Diagnosis [facility] [address] [place] [address] 02/25/2024 Jazmín Summers Plan Of Treatment No Information Progress Notes * Berta AGUILAR ADOB:1955 (69 yo F)Acc No.[id number]:02/25/2024 Progress Note Patient: Ary SANTO Berta Magana Provider: Ary Summers DPM :1955 A ge:68 Y S ex:Female Date:02/25/2024 Address:[address] [place] [address] [id number] Pcp:Andriy Nazario Subjective: * Chief Complaints: * [...] 02/25/2024 Generated for Ludivina ahumada/Augie/Sandra on: 0 10/31/2024 02:57 PM EDT
--- OUTSIDE RECORDS SUMMARY | 2024-03-03 05:00 | XMS_ITS ---
Author Organization [facility] Address [address] [place] [address] Care Team Providers Care Cattle Dealer Name Role Phone Andriy Nazario Primary Care Provider Jazmín Santana [phone] Encounters Encounter Location Date Provider Diagnosis [facility] [address] [place] [address] 03/03/2024 Jazmín Summers Plan Of Treatment No Information Progress Notes * Berta AGUILAR ADOB:1955 (69 yo F)Acc No.[id number]:03/03/2024 Progress Note Patient: Ary SANTO Berta Magana Provider: Ary Summers DPM :1955 A ge:68 Y S ex:Female Date:03/03/2024 Address:[address] [place], [place] [id number] Pcp:Andriy Nazario Subjective: * Chief Complaints: * [...] 03/03/2024 Generated for Printi ng/Faxing/eTransmitting on: 0 10/31/2024 02:57 PM EDT
--- NOTE | 2024-10-31 12:14 | A.OFFVIS_ITS ---
Vital Signs 10/31/24 12:23 Height 5 ft 2 in Weight 108 lb BMI 19.8 BP 104/55 L Blood Pressure Location Lt brachial Position Sitting Pulse 76 Intake Visit Reasons: GERD H pylori, discuss colonoscopy and upper endos Intake Note: Patient follow up for GERD, H pylori, discuss colonoscopy and upper endoscopy Patient cc: abdominal burning sensation, denies any other GI issues for today visit. 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: No Accompanied by: Self / Same As Patient Allergies amoxicillin (AMOXICILLIN) Allergy (Intermediate, Verified 10/31/24 12:14) RASH penicillin V Allergy (Intermediate, Verified 10/31/24 12:14) rash Penicillins (PENICILLINS) Allergy (Intermediate, Verified 10/31/24 12:14) RASH Sulfa (Sulfonamide Antibiotics) (SULFA(SULFONAMIDE ANTIBIOTICS)) Allergy (Intermediate, Verified 10/31/24 12:14) RASH simvastatin (SIMVASTATIN) Allergy (Unknown, Verified 10/31/24 12:14) DIZZINESS sulfamethoxazole (From BACTRIM) Allergy (Unknown, Verified 10/31/24 12:14) RASH trimethoprim (From BACTRIM) Allergy (Unknown, Verified 10/31/24 12:14) RASH HPI HPI GERD H pylori, discuss colonoscopy and upper endos: Details: LAST VISIT GERD (gastroesophageal reflux disease) Dysphagia Helicobacter pylori (H. pylori) Plan Due to multiple allergies of antibiotics we will start her on Cipro and start her on Voquesna. Unsure if we will be able to get her insurance approval for Voquezna. If not we can reach out to local rep for coupon. Patient will call our office if she will have any GI concerning symptoms. Patient was encouraged to go to ED if she will have any shortness of breath or any adverse reaction after taking the antibiotics. Patient is due to go for upper endoscopy and colonoscopy. Message sent to surgical schedulers to book procedure for patient. Patient's PCP is sending her for CT scan. She has that in the beginning of October. I will see her in 5 weeks to re-evaluate and to discuss going for upper endoscopy and colonoscopy. Patient is agreeable to current plan of care and verbalizes understanding of instructions. She was given the opportunity to ask questions and all questions answered. ? Thank you for allowing me to participate in her care New vonoprazan (Voquezna) 20 mg PO DAILY 30 tabs 1RF ciprofloxacin HCl 500 mg PO BID 28 tabs 0RF TODAY'S VISIT Patient reports that she has been doing better since she started taking vonoprazan. Reports completing the medication, however there was couple days when she missed taking the medication due to the way she was feeling. Still occasional epigastric burning and pain, however patient does not have side effects like she did with taking other antibiotics. Patient denies having any dizziness. Here today to discuss going for endoscopy and colonoscopy. Colonoscopy is schedule on the . Patient reports occasional dyspepsia without dysphagia or odynophagia. Denies any issues with her bowels. Denies melena, hematochezia, unintentional weight loss or ribbon like stools. REPLACED BY [facility] Medical History Helicobacter pylori (H. 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 Father No problems noted. Sister Lymphoma Sister Dementia Sister Substance abuse Social History Housing: House Alcohol intake: never Patient Tobacco Use Status: Never used Tobacco Tobacco use type: Cigarette e-Cigarette/Vaping Use: Never Used Second Hand Smoke Exposure: No service: No Current occupational status: retired Cognitive needs: No Hearing needs: No Vision needs: Yes Physical Exam Vital Signs: Last Vital Signs Pulse 76 10/31/24 12:23 BP 104/55 L 10/31/24 12:23 BMI result Body Mass Index 19.8 Const General: healthy appearing, no acute distress and well developed Nutritional Appearance: well nourished Orientation/consciousness: patient oriented x3 Resp Effort & Inspection: normal respiratory effort, able to speak in complete sentences, no tracheal deviation and symmetric chest movement Auscultation: clear to auscultation bilaterally Cardio Rate: regular rate GI Inspection: Yes normal to inspection and No distended Palpation (GI): Soft to palpation, not firm, nontender and No hepatosplenomegaly present Auscultation: normal bowel sounds General: Yes no CVA tenderness Back/Spine/Pelvis Back: no CVA tenderness Skin General skin exam: elasticity normal, turgor normal and dry skin Neuro General: patient oriented x3 Psych Appearance: grossly normal Mental Status: mental status grossly normal Assessment & Plan Assessment & Plan (1) GERD (gastroesophageal reflux disease): Code(s): K21.9 - Gastro-esophageal reflux disease without esophagitis Category: Medical Qualifiers: Esophagitis presence: without esophagitis Qualified Code(s): K21.9 - Gastro-esophageal reflux disease without esophagitis (2) Helicobacter pylori (H. pylori): Code(s): A04.8 - Other specified bacterial intestinal infections Category: Medical (3) Midepigastric pain: Code(s): R10.13 - Epigastric pain Category: Medical (4) Screen for colon cancer: Code(s): Z12.11 - Encounter for screening for malignant neoplasm of colon Plan What to expect before during and after procedure discussed with patient. Stressed importance of good bowel prep and clear liquid diet day before procedure. I will see patient after the procedure, sooner on as needed basis. Patient is agreeable to this plan and verbalizes understanding of instructions. She was given the opportunity to ask questions and all questions answered. Thank you for allowing me to participate in her care Medications: New bisacodyl (Dulcolax (bisacodyl)) take 4 tabs at noon the day before your colonoscopy 20 mg (4 x 5 mg) PO ONCE 4 tabs 0RF constipation 1 day Z12.11 - Encounter for screening for malignant neoplasm of colon polyethylene glycol 3350 (Miralax) As directed by gastroenterology department at [facility] 238 grams PO ONCE 238 grams 0RF Z12.11 - Encounter for screening for malignant neoplasm of colon Coding Level of Care Code Est Pt Level 4 (78680) Complex EM visit Add On G2211 Diagnoses Gastroesophageal reflux disease without esophagitis K21.9 Esophagitis presence: without esophagitis Helicobacter pylori (H. pylori) A04.8 Midepigastric pain R10.13 Screen for colon cancer Z12.11 Time Spent (min) 35 Comment 25 minutes spent with patient and additional 10 minutes spent reviewing her record
[2024-10-31 12:23] VITALS: BP 104/55; PULSE 76; BMI 19.8
--- OUTSIDE RECORDS SUMMARY | 2024-10-31 14:57 | XMS_ITS | Patient Health Record ---
Author Organization [facility] Address [address] [place] [address] Care Team Providers Care Enterprise Integration Architect Name Role Phone Francesco Monk Jr Reason For Referral No Information Plan Of Treatment No Information
--- OUTSIDE RECORDS SUMMARY | 2024-10-31 14:57 | XMS_ITS | Patient Health Record ---
Author Organization [facility] Address [address] [place] [address] Care Team Providers Care Cleaner Laboratory Equipment Name Role Phone Andriy Nazario Primary Care Provider Jazmín Santana [phone] Allergies Allergen (clinical drug ingredient) Drug/Non Drug [...] No Encounters Encounter Location Date Provider Diagnosis [facility] [address] [place] [address] 03/02/2024 Jazmín Summers Plan Of Treatment No Information Insurance Providers Payer Name Payer Address Payer Phone Subscriber Number Group Number Insured Name Patient Relationship to Insured Coverage Start Date Coverage End Date Medicare National Govt Sv[employer] [address] [place] [address] [id number] Berta Aguilar Self - patient is the insured [employer] [address] [place] [address] [id number] Berta Aguilar Self - patient is the insured Medical (General) History Medical History History ICD Code asthma breast cancer 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
== END 2024-10-31 12:51 | disposition home or self-care (01) ==
LOC: HO.HGI 12:01
PROVIDERS: PCP Internal Medicine; Visit Provider Nurse Practitioner Family
DX: K21.9 Gastro-esophageal reflux disease without esophagitis (principal); A04.8 Other specified bacterial intestinal infections; R10.13 Epigastric pain; Z12.11 Encounter for screening for malignant neoplasm of colon
CPT/HCPCS: 99214; G2211

== ENCOUNTER → 2024-10-31 12:00 | Outpatient (BNVA) | payer MEDICARE, SELFPAY | PROVIDERS: PCP Internal Medicine; Visit Provider Nurse Practitioner Family | DX: Z12.11 Encounter for screening for malignant neoplasm of colon (principal); K21.9 Gastro-esophageal reflux disease without esophagitis; R10.13 Epigastric pain; A04.8 Other specified bacterial intestinal infections | CPT/HCPCS: 99212 ==

== ENCOUNTER 2024-11-02 11:11 | Day surgery (SDC) | payer MEDICARE, SELFPAY ==
--- OUTSIDE RECORDS SUMMARY | 2023-08-04 09:00 | XMS_ITS ---
Author Organization [facility] Address [address] [place] [address] Care Team Providers Care Feed Inspection Supervisor Name Role Phone Andriy Nazario Primary Care Provider Jazmín Santana [phone] Encounters Encounter Location Date Provider Diagnosis [facility] [address] [place] [address] 08/04/2023 Jazmín Summers Plan Of Treatment No Information Progress Notes * Berta AGUILAR ADOB:1955 (69 yo F)Acc No.[id number]:08/04/2023 Progress Notes Patient: Ary SANTO Berta Magana Provider: Ary Summers DPM :1955 A ge:68 Y S ex:Female Date:08/04/2023 Address:[address] [place], [place] [id number] Pcp:Andriy Nazario Subjective: * Chief Complaints: * [...] 0 08/04/2023 Generated for Printi ng/Falyricg/eTransmitting on: 10/30/2024 06:48 AM EDT
--- OUTSIDE RECORDS SUMMARY | 2023-09-14 06:30 | XMS_ITS ---
Author Organization [facility] Address [address] [facility] [place] [address] Care Team Providers Care Corncob Pipe Manufacturing Supervisor Name Role Phone Andriy Nazario Primary Care Provider Jazmín Santana [phone] Allergies Allergen (clinical drug ingredient) Drug/Non Drug [...] 09/14/2023 Encounters Encounter Location Date Provider Diagnosis [facility] [address] [place] [address] 09/14/2023 Jazmín Summers Plan Of Treatment No Information Progress Notes * Berta AGUILAR ADOB:1955 (69 yo F)Acc No.[id number]:09/14/2023 Progress Notes Patient: Berta MEAD Provider: Ary Summers DPM :1955 A ge:68 Y S ex:Female Date:09/14/2023 Address:[address] [place], [place] [id number] Pcp:Andriy Nazario Subjective: * Chief Complaints: * [...] enies. C ardiovascular: Pacemaker d enies. 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 W PW d enies. C [...] 09/14/2023 Generated for Ludivina ahumada/Augie/Sandra on: 0 10/30/2024 06:47 AM EDT
--- OUTSIDE RECORDS SUMMARY | 2024-02-25 05:00 | XMS_ITS ---
Author Organization [facility] Address [address] [place] [address] Care Team Providers Care Stitchdown Thread Laster Name Role Phone Andriy Nazario Primary Care Provider Jazmín Santana [phone] Dorsey Medications Medication SIG (Take, Route, Frequency, Duration) Notes Start Date End Date Status Ciclopirox Olamine 0.77 % 1 application Externally Twice a day; Duration: 30 days Active Albuterol Sulfate HFA 108 (90 Base) MCG/ACT 1 puff as needed Inhalation every 4 hrs Active Encounters Encounter Location Date Provider Diagnosis [facility] [address] [place] [address] 02/25/2024 Jazmín Summers Plan Of Treatment No Information Progress Notes * Berta AGUILAR ADOB:1955 (69 yo F)Acc No.[id number]:02/25/2024 Progress Note Patient: Ary SANTO Berta Magana Provider: Ary Summers DPM :1955 A ge:68 Y S ex:Female Date:02/25/2024 Address:[address] [place] [address] [facility] Pcp:Andriy Nazario Subjective: * Chief Complaints: * [address] Dorsey. * Medical History: * Medications: T aking Albuterol Sulfate HFA 108 (90 Base) MCG/ACT Aerosol Solution 1 puff as needed Inhalation every 4 hrs , Taking Ciclopirox Olamine 0.77 % Cream 1 application Externally Twice a day Objective: * Vitals: Assessment: Plan: * Treatment: * Images: * The named appointment provid er may or may not be the originator of this progress note, and it is not deemed complete until electronically signed by the appointment provider. Sign off status: Pending * Provider: Ary Summers DPM Date: 0 02/25/2024 Generated for Ludivina ahumada/Augie/Sandra on: 0 10/30/2024 06:48 AM EDT
--- OUTSIDE RECORDS SUMMARY | 2024-03-03 05:00 | XMS_ITS ---
Author Organization [facility] Address [address] [place] [address] Care Team Providers Care Release And Technical Records Clerk Name Role Phone Andriy Nazario Primary Care Provider Jazmín Santana [phone] Encounters Encounter Location Date Provider Diagnosis [facility] [address] [place] [address] 03/03/2024 Jazmín Summers Plan Of Treatment No Information Progress Notes * Berta AGUILAR ADOB:1955 (69 yo F)Acc No.[id number]:03/03/2024 Progress Note Patient: Ary SANTO Berta Magana Provider: Ary Summers DPM :1955 A ge:68 Y S ex:Female Date:03/03/2024 Address:[address] [place], [place] [id number] Pcp:Andriy Nazario Subjective: * Chief Complaints: * [...] DPM Date: 0 03/03/2024 Generated for Printi ng/Falyricg/eTransmitting on: 0 10/30/2024 06:48 AM EDT
--- OUTSIDE RECORDS SUMMARY | 2024-10-30 06:48 | XMS_ITS | Patient Health Record ---
Author Organization [facility] Address [address] [place] [address] Care Team Providers Care Supermarket Manager Name Role Phone Andriy Nazario Primary Care Provider Jazmín Santana [phone] Allergies Allergen (clinical drug ingredient) Drug/Non Drug [...] No Encounters Encounter Location Date Provider Diagnosis [facility] [address] [place] [address] 03/02/2024 Jazmín Summers Plan Of Treatment No Information Insurance Providers Payer Name Payer Address Payer Phone Subscriber Number Group Number Insured Name Patient Relationship to Insured Coverage Start Date Coverage End Date Medicare National Govt Svcs Inc [address] [place] [address] [id number] Berta Aguilar Self - patient is the insured [employer] [address] [place] [address] [id number] Berta Aguilar Self - patient is the insured Medical (General) History Medical History History ICD Code asthma breast cancer 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
--- OUTSIDE RECORDS SUMMARY | 2024-10-30 06:48 | XMS_ITS | Patient Health Record ---
Author Organization [facility] Address [address] [place] [address] Care Team Providers Care Landscaping Crew Leader Name Role Phone Francseco Monk Jr [phone] Reason For Referral No Information Plan Of Treatment No Information
--- NOTE | 2024-10-31 11:56 | P.CONAN_ITS ---
Documented by User: Poornima Wolf NP 10/31/24 11:57 HPI - Anesthesia Eval Consult details Narrative: 69 yr old female for upper endoscopy, colonoscopy Seen by PCP 10/2024, reported a lump on her head, CT scan ordered, referred to neurology; also reported heightened anxiety related to recent imaging studies/health. [facility] Active Problems Active Problems: All Active Problems Pericardial defect (Acute) Family history of dementia (Acute) Headache (Acute) Skull asymmetry (Acute) Helicobacter pylori (H. pylori) (Acute) Midepigastric pain (Acute) Microscopic hematuria (Acute) Dysphagia (Acute) General medical exam (Acute) Sinusitis (Acute) Hepatic steatosis (Acute) Cholelithiasis (Acute) Left renal mass (Acute) Type 2 diabetes mellitus with hyperglycemia (Acute) Medicare annual wellness visit, subsequent (Acute) Toenail avulsion (Acute) Nephrolithiasis (Acute) Recurrent UTI (Acute) Age-related osteoporosis without current pathological fracture (Acute) Weight loss (Acute) COVID-19 virus infection (Acute) Annual physical exam (Acute) Tiredness (Acute) Pressure in head (Acute) Generalized anxiety disorder (Acute) Hyperpigmented skin lesion (Acute) Breast cancer (Acute) Asthma (Acute) Hypercholesterolemia (Acute) Mixed incontinence urge and stress (Acute) GERD (gastroesophageal reflux disease) (Acute) Past Medical History Medical History Helicobacter pylori (H. 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 Father No problems noted. Sister Lymphoma Sister Dementia Sister Substance abuse Surgical History Surgical History History of cholecystectomy delivery delivered S/P breast lumpectomy Social History Social History Housing: House Alcohol intake: never Patient Tobacco Use Status: Never used Tobacco Tobacco use type: Cigarette e-Cigarette/Vaping Use: Never Used Second Hand Smoke Exposure: No Use of substances other than those prescribed or required for medical reasons: No Advance Directives: No Advance Directives Information Provided: Yes service: No Current occupational status: retired Cognitive needs: No Hearing needs: No Vision needs: Yes Meds Allergies Allergy/AdvReac Type Severity Reaction Status Date / Time amoxicillin (AMOXICILLIN) Allergy Intermediate RASH Verified 10/31/24 12:14 penicillin V Allergy Intermediate rash Verified 10/31/24 12:14 Penicillins (PENICILLINS) Allergy Intermediate RASH Verified 10/31/24 12:14 Sulfa (Sulfonamide Allergy Intermediate RASH Verified 10/31/24 12:14 Antibiotics) (SULFA(SULFONAMIDE ANTIBIOTICS)) simvastatin (SIMVASTATIN) Allergy Unknown DIZZINESS Verified 10/31/24 12:14 sulfamethoxazole (From Allergy Unknown RASH Verified 10/31/24 12:14 BACTRIM) trimethoprim (From BACTRIM) Allergy Unknown RASH Verified 10/31/24 12:14 Documented by User: Lorena Guadarrama MD 11/02/24 11:57 PMFSH Past Medical History Medical History Helicobacter pylori (H. 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 Father No problems noted. Sister Lymphoma Sister Dementia Sister Substance abuse Family history of problems with anesthesia: No Surgical History Surgical History History of cholecystectomy delivery delivered S/P breast lumpectomy History of Problems with Anesthesia: No Social History Social History Housing: House Alcohol intake: never Patient Tobacco Use Status: Never used Tobacco Tobacco use type: Cigarette e-Cigarette/Vaping Use: Never Used Second Hand Smoke Exposure: No Use of substances other than those prescribed or required for medical reasons: No Advance Directives: No Advance Directives Information Provided: Yes service: No Current occupational status: retired Cognitive needs: No Hearing needs: No Vision needs: Yes Meds Allergies Allergy/AdvReac Type Severity Reaction Status Date / Time amoxicillin (AMOXICILLIN) Allergy Intermediate RASH Verified 10/31/24 12:14 penicillin V Allergy Intermediate rash Verified 10/31/24 12:14 Penicillins (PENICILLINS) Allergy Intermediate RASH Verified 10/31/24 12:14 Sulfa (Sulfonamide Allergy Intermediate RASH Verified 10/31/24 12:14 Antibiotics) (SULFA(SULFONAMIDE ANTIBIOTICS)) simvastatin (SIMVASTATIN) Allergy Unknown DIZZINESS Verified 10/31/24 12:14 sulfamethoxazole (From Allergy Unknown RASH Verified 10/31/24 12:14 BACTRIM) trimethoprim (From BACTRIM) Allergy Unknown RASH Verified 10/31/24 12:14 Exam Airway Mallampati Class: II TM Dist: >3cm Neck ROM: Full Heart: rrr Lungs: cta Assessment and Plan Assessment Anesthesia Assessment: Anesthesia Plan Discussed and Chart Reviewed Final Anesthetic Review Family History of Problems with Anesthesia: No History of Problems with Anesthesia: No NPO: Yes ASA Class: II Final Preanesthetic Review: No Changes in Pt Med Stat, Meds/Allgs Chart Reviewed and Consent Obtained/Reviewed Patient Risk: Low Procedure Risk: Low Anesthetic Plan Anesthetic Plan: MAC: Disposition: Standard PACU
[2024-11-02 11:21] VITALS: BMI 19.3
[2024-11-02 11:33] VITALS: BP 119/70; PULSE 102; RESP 16; TEMP 36.6; O2SAT 97
[2024-11-02] MEDS: Lactated Ringers 1,000 ML 100 ML IVCONT (11:34)
--- NOTE | 2024-11-02 11:34 | MHC.SHP ---
Pre-Procedural Eval Section A - 24 Hr Update-Section A only Date of Service: 11/02/24 The patient has been examined within 24 hours of the surgical procedure. The History & Physical has been completed within 30 days and I have reviewed it.: Yes Section B - Complete if H&P > 30 days Chief Complaint: bacterial intestinal infections,gerd,screening Allergies: Allergies Allergy/AdvReac Type Severity Reaction Status Date / Time amoxicillin (AMOXICILLIN) Allergy Intermediate RASH Verified 10/31/24 12:14 penicillin V Allergy Intermediate rash Verified 10/31/24 12:14 Penicillins (PENICILLINS) Allergy Intermediate RASH Verified 10/31/24 12:14 Sulfa (Sulfonamide Allergy Intermediate RASH Verified 10/31/24 12:14 Antibiotics) (SULFA(SULFONAMIDE ANTIBIOTICS)) simvastatin (SIMVASTATIN) Allergy Unknown DIZZINESS Verified 10/31/24 12:14 sulfamethoxazole (From Allergy Unknown RASH Verified 10/31/24 12:14 BACTRIM) trimethoprim (From BACTRIM) Allergy Unknown RASH Verified 10/31/24 12:14 Plan Diagnosis/Plan: Unchanged I have reviewed the history and physical and performed a pertinent physical examination on my patient. No changes have occurred unless specified. Time Spent With Patient Time: Total time managing care of this patient today ____ minutes.
--- NOTE | 2024-11-02 12:48 | P.OPN-COLO_ITS ---
Colonoscopy Operative Note Operative Note Date of Service: 11/02/24 Narrative: Procedure: Upper endoscopy and colonoscopy Indication: H Pylori gastritis, hx of polyps Endoscopist: Alisha Peter MD Anesthesia Provider: Lorena Guadarrama MD Anesthesia type: MAC Instrument: [id number] and [id number] EGD Procedure:?? The procedure, indications, preparation and potential complications were reviewed with the patient, who indicated understanding and gave written informed consent to proceed. The endoscope was introduced through the mouth, and advanced to the 2nd part of the duodenum. The mucosa was carefully examined on slow withdrawal of the endoscope. The patient tolerated the procedure well. There were no immediate complications.? EGD Findings:? * Esophagus:? Normal esophageal mucosa was noted. The Z-line was at 36 cm. * Stomach:? Normal gastric mucosa. Retroflexion was performed in the cardia. Random cold forceps biopsies were taken from the stomach to r/o H Pylori. Sample was also sent to micro for C&S. * Duodenum:? Normal duodenal mucosa. Colonoscopy Procedure:? The patient was then turned for the colonoscopy. A digital rectal exam was performed which was normal.? A distal attachment cap was affixed to the tip of the scope and the colonoscope was then inserted through the anus and advanced through the colon and advanced to the cecum at 75 cm and terminal ileum.? Appendiceal orifice and ileocecal valve were identified. Mucosa was carefully examined under high definition white light as the instrument was slowly withdrawn in a retrograde panoramic fashion. Retroflexion was performed in rectum. The procedure was not difficult. The quality of the prep was BBPS: 2+2+3 = adequate Withdrawal time 13 minutes Limitations: No limitations Findings: Mucosa: Normal colon and terminal ileum mucosa. Protruding lesions: * 1 sessile polyp of size 2 mm noted in ascending colon. Cold forceps polypectomy was performed. The polyp was completely removed and retrieved. * Medium internal hemorrhoids without stigmata of recent bleeding. Impression: 1. Normal esophagus 2. Gastritis (biopsy, micro) 3. Normal duodenum 4. Normal colon and terminal ileum mucosa 5. 1 polyp removed 6. Internal hemorrhoids Recommendations:?? * Pt reports completing cipro + vanoprazan 3 weeks ago but admits to nonadher ence. Biopsy were taken for histology as well for micro for culture and sensitivity. * Follow-up path results. * H Pylori treatment contingent on above. * Repeat colonoscopy for CRC screening in 7-10 years.
[2024-11-02 12:55] VITALS: BP 97/46; PULSE 81; RESP 12; TEMP 36.6; O2SAT 98
[2024-11-02 13:10] VITALS: BP 101/60; PULSE 81; RESP 17; TEMP 36.6; O2SAT 99
== END 2024-11-02 13:41 | disposition home or self-care (01) ==
PROVIDERS: PCP Internal Medicine; Visit Provider Internal Medicine
PROC: (CPT 43239; principal; 2024-11-02 13:30)
DX: Z12.11 Encounter for screening for malignant neoplasm of colon (principal); Z86.0101 Personal history of adenomatous and serrated colon polyps; K63.5 Polyp of colon; K64.8 Other hemorrhoids; K21.9 Gastro-esophageal reflux disease without esophagitis; R13.10 Dysphagia, unspecified; A04.8 Other specified bacterial intestinal infections; R73.02 Impaired glucose tolerance (oral); Q39.8 Other congenital malformations of esophagus; E78.00 Pure hypercholesterolemia, unspecified; Z85.3 Personal history of malignant neoplasm of breast; Z88.0 Allergy status to penicillin; Z88.1 Allergy status to other antibiotic agents; Z88.2 Allergy status to sulfonamides; Z88.8 Allergy status to other drugs, medicaments and biological substances; Z90.49 Acquired absence of other specified parts of digestive tract; Z98.890 Other specified postprocedural states
CPT/HCPCS: 43239; 87081; 87205; 88305; 88313; 88342; J2003; J2250; J2371; J2704

== ENCOUNTER → 2024-11-02 11:11 | Outpatient (BNV) | payer MEDICARE, SELFPAY | PROVIDERS: PCP Internal Medicine; Visit Provider Internal Medicine | DX: Z12.11 Encounter for screening for malignant neoplasm of colon (principal); Z86.0100 Personal history of colon polyps, unspecified; D12.2 Benign neoplasm of ascending colon; K64.8 Other hemorrhoids; K29.70 Gastritis, unspecified, without bleeding; B96.81 Helicobacter pylori [H. pylori] as the cause of diseases classified elsewhere | CPT/HCPCS: 43239; 45380 ==

== ENCOUNTER 2024-11-17 12:38 | Outpatient (REF) | payer MEDICARE, SELFPAY | END 2024-11-17 12:39 | disposition home or self-care (01) | LOC: HO.MAMMO 12:38 | PROVIDERS: PCP Internal Medicine; Visit Provider Internal Medicine | DX: Z12.31 Encounter for screening mammogram for malignant neoplasm of breast (principal) | CPT/HCPCS: 77063; 77067 ==

== ENCOUNTER → 2024-11-17 13:00 | Outpatient (BNV) | payer MEDICARE, SELFPAY | PROVIDERS: PCP Internal Medicine; Visit Provider Radiology Body Imaging | DX: Z12.31 Encounter for screening mammogram for malignant neoplasm of breast (principal) | CPT/HCPCS: 77063; 77067 ==

== ENCOUNTER → 2024-12-05 08:44 | Outpatient (REF) | payer MEDICARE, SELFPAY ==
--- OUTSIDE RECORDS SUMMARY | 2023-08-04 09:00 | XMS_ITS ---
Author Organization [facility] Address [address] [place] [address] Care Team Providers Care Inside Sales Manager Name Role Phone Andriy Nazario Primary Care Provider Jazmín Santana [phone] Encounters Encounter Location Date Provider Diagnosis [facility] [address] [place] [address] 08/04/2023 Jazmín Summers Plan Of Treatment No Information Progress Notes * Berta AGUILAR ADOB:1955 (69 yo F)Acc No.[id number]:08/04/2023 Progress Notes Patient: Ary SANTO Berta Magana Provider: Ary Summers DPM :1955 A ge:68 Y S ex:Female Date:08/04/2023 Address:[address] [place], [place] [id number] Pcp:Andriy Nazario Subjective: * Chief Complaints: * * Medical History: Objective: * Vitals: Assessment: Plan: * Treatment: * Images: * The named appointment provid er may or may not be the originator of this progress note, and it is not deemed complete until electronically signed by the appointment provider. Sign off status: Pending * Provider: Ary Summers DPM Date: 0 08/04/2023 Generated for Printi ng/Falyricg/eTransmitting on: 09:28 AM EDT
--- OUTSIDE RECORDS SUMMARY | 2023-09-14 06:30 | XMS_ITS ---
Author Organization [facility] Address [address] [facility] [place] [address] Care Team Providers Care Logistics Officer Name Role Phone Andriy Nazario Primary Care Provider Jazmín Santana [phone] Allergies Allergen (clinical drug ingredient) Drug/Non Drug [...] 09/14/2023 Encounters Encounter Location Date Provider Diagnosis [facility] [address] [place] [address] 09/14/2023 Jazmín Summers Plan Of Treatment No Information Progress Notes * Berta AGUILAR ADOB:1955 (69 yo F)Acc No.[id number]:09/14/2023 Progress Notes Patient: Berta MEAD Provider: Ary Summers DPM :1955 A ge:68 Y S ex:Female Date:09/14/2023 Address:[address] [place], [place] [id number] Pcp:Andriy Nazario Subjective: * Chief Complaints: * [...] enies. C ardiovascular: Pacemaker d enies. M MEDICAL OFFICE SECRETARY d enies. W PW d enies. C [...] 0 09/14/2023 Generated for Ludivina ahumada/Augie/Sandra on: 1 09:28 AM EDT
--- OUTSIDE RECORDS SUMMARY | 2024-02-25 05:00 | XMS_ITS ---
Author Organization [facility] Address [address] [place] [address] Care Team Providers Care Barrel Painter Name Role Phone Andriy Nazario Primary Care Provider Jazmín Santana [phone] Dorsey Medications Medication SIG (Take, Route, Frequency, Duration) Notes Start Date End Date Status Ciclopirox Olamine 0.77 % 1 application Externally Twice a day; Duration: 30 days Active Albuterol Sulfate HFA 108 (90 Base) MCG/ACT 1 puff as needed Inhalation every 4 hrs Active Encounters Encounter Location Date Provider Diagnosis [facility] [address] [place] [address] 02/25/2024 Jazmín Summers Plan Of Treatment No Information Progress Notes * Berta AGUILAR ADOB:1955 (69 yo F)Acc No.[id number]:02/25/2024 Progress Note Patient: Ary SANTO Berta Magana Provider: Ary Summesr DPM :1955 A ge:68 Y S ex:Female Date:02/25/2024 Address:[address] [place] [address] [id number] Pcp:Andriy Nazario Subjective: * Chief Complaints: * [...] 0 02/25/2024 Generated for Ludivina ahumada/Augie/Sandra on: 1 09:28 AM EDT
--- OUTSIDE RECORDS SUMMARY | 2024-03-03 05:00 | XMS_ITS ---
Author Organization [facility] Address [address] [place] [address] Care Team Providers Care Machine Marker Name Role Phone Andriy Nazario Primary Care Provider Jazmín Santana [phone] Encounters Encounter Location Date Provider Diagnosis [facility] [address] [place] [address] 03/03/2024 Jazmín Summers Plan Of Treatment No Information Progress Notes * Berta AGUILAR ADOB:1955 (69 yo F)Acc No.[id number]:03/03/2024 Progress Note Patient: Ary SANTO Berta Magana Provider: Ary Summers DPM :1955 A ge:68 Y S ex:Female Date:03/03/2024 Address:[address] [place], [place] [id number] Pcp:Andriy Nazario Subjective: * Chief Complaints: * * Medical History: Objective: * Vitals: Assessment: Plan: * Treatment: * Images: * The named appointment provid er may or may not be the originator of this progress note, and it is not deemed complete until electronically signed by the appointment provider. Sign off status: Pending * Provider: Ary Summers DPM Date: 0 03/03/2024 Generated for Printi ng/Faxing/eTransmitting on: 09:29 AM EDT
--- NOTE | 2024-12-05 08:47 | CA_ITS ---
Transthoracic Echocardiogram Patient (Last, First, Middle): Berta Aguilar A Gender: F Date of : 1955 Age: 69 Procedure Date: 12/05/2024 Procedure Type: Transthoracic Echocardiogram Location: OP Height: 157. 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 The calculated ejection fraction is 67% by biplane method. - No obvious valvular pathology seen on this study. - Very small pericardial effusion overlying right ventricle. Findings Left Ventricle Normal left ventricular cavity size. There is normal left ventricular wall thickness. The left ventricular systolic function is normal. The calculated ejection fraction is 67% by biplane method. There is no evidence of regional wall motion abnormalities. Diastolic function is normal for age. Right Ventricle Normal right ventricular cavity size and systolic function. Atria Both atria are normal in size. Aortic Valve There is a normal trileaflet aortic valve. There is no aortic valve stenosis. There is no aortic valve regurgitation. Mitral Valve The mitral valve appears normal. There is trace mitral valve regurgitation. There is no mitral valve stenosis. Pulmonic Valve The pulmonic valve is likely normal. There is trace pulmonic valve regurgitation. Tricuspid Valve There is trace tricuspid valve regurgitation. There is no evidence of pulmonary hypertension. Great Vessels The asc aorta is normal in size. Venous The inferior vena cava is normal in size and collapses greater than 50% with inspiration. Pericardium/Pleural Very small pericardial effusion overlying right ventricle. Prior Study Comparison No prior study available for comparison. Recommendations, Care & Conclusions No obvious valvular pathology seen on this study. Measurements 2D Linear Measurements IVSd: 0.66 0.6-0.9/0.6-1.0 cm LVIDd: 3.91 3.9-5.3/4.2-5.9 cm LVIDd Index: 2.66 2.4-3.2/2.2-3.1 cm/m2 LVIDs: 2.26 2.0-3.6 cm LVPWd: 0.66 0.7-1.1 cm LA Diam: 2.80 2.7-3.8/3.0-4.0 cm LAIDs Index: 1.90 1.5-2.3 cm/m2 LV Mass: 86.61 67-162/88-224 g LV Mass Index: 58.92 43-95/49-115 g/m2 LVOT Diam: 1.80 3.0+(-)1.3 cm 2D Systolic Function EF 4C: 68.40 >55% EF 2C: 67.50 >55% EF BiP: 67.20 >55% Mitral Valve MV Pk E: 0.75 MV PK A: 0.83 MV Decel Time: 301.00 E/A: 0.90 E'Lateral: 11.10 E'Medial: 7.29 E/E' Med: 10.20 E/E' Lat: 6.70 PHT: 88.00 MVA PHT: 2.50 Decel Preble: 2.48 Aortic Valve AoV Pk Phil: 1.18 AoV Mn Pihl: 0.82 AoV VTI: 0.27 AoV Pk Grad: 6.00 Aov Mn Grad: 3.00 DHARA Cont.VTI: 1.61 LVOT LVOT Pk Phil: 0.86 LVOT Mn Phil: 0.56 LVOT VTI: 0.17 LVOT Pk Grad: 3.00 LVOT Mn Grad: 2.00 LVOT Diam: 1.80 LVOT Area: 2.54 Diastolic Function MV Pk E: 0.75 MV Pk A: 0.83 E/A: 0.90 E'Medial: 7.29 E/E' Med: 10.20 E' Laterial: 11.10 E/E' Lat: 6.70 Right Ventricle TAPSE (mm): 25.50 TVS' Phil: 12.60 Tricuspid Valve TR Pk Phil: 2.13 TR Pk Grad: 18.00 RA Press: 3.00 RVSP: 21.00 Great Vessels Aorta Sinus of Valsalva: 2.50 2.0-3.5 cm Ao Asc: 2.40 2.1-3.4 cm Ao Arch: 2.50 Pulmonary Veins Pulm Vein S/D 1.00 Pulmonary Valve PV Pk Phil: 0.84 Peak PV Grad: 3.00 Updated in Other Vendor System with Status of Final Brandon Maria MD electronically signed on 12/06/2024 11:40:06 AM with status of Final
--- OUTSIDE RECORDS SUMMARY | 2024-12-05 09:28 | XMS_ITS | Patient Health Record ---
Author Organization [facility] Address [address] [place] [address] Care Team Providers Care Director Pediatric Name Role Phone Francesco Monk Jr Reason For Referral No Information Plan Of Treatment No Information
--- OUTSIDE RECORDS SUMMARY | 2024-12-05 09:29 | XMS_ITS | Patient Health Record ---
Author Organization [facility] Address [address] [place] [address] Care Team Providers Care Gauge Machine Operator Name Role Phone Andriy Nazario Primary Care Provider Jazmín Santana [phone] Allergies Allergen (clinical drug ingredient) Drug/Non Drug [...] No Encounters Encounter Location Date Provider Diagnosis [facility] [address] [place] [address] 03/02/2024 Jazmín Summers Plan Of Treatment No Information Insurance Providers Payer Name Payer Address Payer Phone Subscriber Number Group Number Insured Name Patient Relationship to Insured Coverage Start Date Coverage End Date Medicare National Govt Svcs Inc [address] [place] [address] [id number] Berta Aguilar Self - patient is the insured [employer] [address] [place] [address] [phone] [id number] Berta Aguilar Self - patient is the insured Medical (General) History Medical History History ICD Code asthma breast cancer 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
== END ==
LOC: HO.CARD 08:44
PROVIDERS: PCP Internal Medicine; Visit Provider Internal Medicine
DX: Q24.8 Other specified congenital malformations of heart (principal)
CPT/HCPCS: 93306

== ENCOUNTER → 2024-12-05 08:47 | Outpatient (BNV) | payer MEDICARE, SELFPAY | PROVIDERS: PCP Internal Medicine; Visit Provider Internal Medicine | DX: I31.39 Other pericardial effusion (noninflammatory) (principal) | CPT/HCPCS: 93306 ==

== ENCOUNTER 2024-12-21 08:08 | Outpatient (REF) | payer MEDICARE, SELFPAY ==
[2024-12-21 09:19] LABS: Blood Urea Nitrogen 14 mg/dL (9-16); Estimated Glomerular Filt Rate > 60
[2024-12-21 09:40] LABS: Appearance Urine Clear; Glucose Urine UA Negative (Negative); PH 6.0 (5.0-9.0); Specific Gravity - Urine >= 1.030 (1.005-1.025); UMIC TRIGGER UACC YES
== END 2024-12-21 08:09 | disposition home or self-care (01) ==
LOC: HO.LAB 08:08
PROVIDERS: PCP Internal Medicine; Visit Provider Internal Medicine
DX: Q24.8 Other specified congenital malformations of heart (principal); R10.13 Epigastric pain; R30.0 Dysuria
CPT/HCPCS: 36415; 81001; 81003; 82565; 84520

== ENCOUNTER 2024-12-26 08:40 | Outpatient (AMB) | payer MEDICARE, SELFPAY ==
[2024-12-26 08:45] VITALS: BP 102/62; PULSE 72; TEMP 36.3; O2SAT 100; BMI 20.4
--- NOTE | 2024-12-26 08:45 | MHC.PC.OV ---
Vital Signs 12/26/24 08:45 Height 5 ft 2 in Weight 111 lb 6 oz BMI 20.4 BP 102/62 Blood Pressure Location Lt brachial Position Sitting Pulse 72 Pulse Source Pulse Oximeter Temp 97.3 F Temp Source Temporal Artery Scan Pulse Oximetry (%) 100 Oxygen Delivery Method Room Air Intake Visit Reasons: DM Allergies amoxicillin (AMOXICILLIN) Allergy (Intermediate, Verified 12/26/24 08:48) RASH penicillin V Allergy (Intermediate, Verified 12/26/24 08:48) rash Penicillins (PENICILLINS) Allergy (Intermediate, Verified 12/26/24 08:48) RASH Sulfa (Sulfonamide Antibiotics) (SULFA(SULFONAMIDE ANTIBIOTICS)) Allergy (Intermediate, Verified 12/26/24 08:48) RASH simvastatin (SIMVASTATIN) Allergy (Unknown, Verified 12/26/24 08:48) DIZZINESS sulfamethoxazole (From BACTRIM) Allergy (Unknown, Verified 12/26/24 08:48) RASH trimethoprim (From BACTRIM) Allergy (Unknown, Verified 12/26/24 08:48) RASH Tobacco use date assessed: 12/26/24 Fall risk assessment: No Falls in past year Last assessed Fall Risk: 12/26/24 Dental Screening Dental Screen Date: 12/26/24 HPI HPI Comments History of Present Illness Details History of Present Illness The patient is a 69-year-old female presenting for a follow-up on multiple chronic conditions. Her past medical history is significant for GERD, hypercholesterolemia, asthma, and breast cancer in 2004. She also has a history of osteoporosis, with her last bone density scan in November 2023, nephrolithiasis, type 2 diabetes mellitus, and cholelithiasis. 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 An echocardiogram on December 05, done to investigate a possible pericardial defect, showed a normal left ventricular systolic function with an ejection fraction of 67%, no valvular pathology, and a very small pericardial effusion. The patient reports a history of anxiety, especially related to claustrophobia during CT scans, and was prescribed alprazolam for this but has never taken it. Regarding her gastrointestinal history, she underwent an upper GI endoscopy and colonoscopy in October. She was treated for H. pylori with ciprofloxacin and vonoprazan, although subsequent biopsy results from the EGD showed chronic inactive gastritis and were negative for H. pylori. The colonoscopy was negative for any hyperplastic or neoplastic processes, and a repeat is recommended in 7 to 10 years. She is status post-cholecystectomy, and an abdominal CT scan from October 19 showed no visible choledocholithiasis. Health Maintenance The patient was advised to continue a healthy diet, maintain fluid intake, and stay active. A discussion was had regarding vaccinations; the patient declined the flu shot and is hesitant about the shingles shot. The patient was advised to take precautions against respiratory illnesses, such as avoiding individuals who are coughing. The next visit will be scheduled as a complete physical examination. Social History - Patient exhibits situational anxiety and claustrophobia related to medical imaging procedures, particularly CT and MRI scans. - The patient reports she is eating better. Results - Labs: - Hemoglobin A1c: 6.1%. - LDL Cholesterol (April): 110 mg/dL. - Blood count (May 08): Normal. - Kidney function test (last week): Performed in preparation for a CT scan. - Tests and Diagnostics: - Echocardiogram (December 05): Normal left ventricular systolic function with an ejection fraction of 67%; no valvular pathology; very small pericardial effusion. - EGD with biopsy (October): Chronic inactive gastritis, negative for H. pylori. - Colonoscopy (October): Negative for hyperplastic or neoplastic processes; a non-significant polyp was noted. - Abdominal CT Scan (October 19): Status post-cholecystectomy with no visible choledocholithiasis. [facility] Medical History Helicobacter pylori (H. 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 Father No problems noted. Sister Lymphoma Sister Dementia Sister Substance abuse Social History Housing: House Alcohol intake: never Patient Tobacco Use Status: Never used Tobacco Tobacco use type: Cigarette e-Cigarette/Vaping Use: Never Used Second Hand Smoke Exposure: No service: No Current occupational status: retired Cognitive needs: No Hearing needs: No Vision needs: Yes Questionnaire PHQ-9 Over the last 2 weeks, how often have you been bothered by any of the following problems? 1. Little interest or pleasure in doing things: not at all 2. Feeling down, depressed, or hopeless: not at all 3. Trouble falling or staying asleep, or sleeping too much: not at all 4. Feeling tired or having little energy: not at all 5. Poor appetite or overeating: not at all 6. Feeling bad about yourself - or that you are a failure or have let yourself or your family down: not at all 7. Trouble concentrating on things, such as reading the newspaper or watching television: not at all 8. Moving or speaking so slowly that other people could have noticed. Or the opposite - being so fidgety or restless that you have been moving around a lot more than usual: not at all 9. Thoughts that you would be better off or of hurting yourself in some way: not at all Total score: 0 Depression Screening Interpretation: Negative Depression Screening Done: Yes Source: Developed by Drs. Donn Storm, Génesis Edwards, Petros Woodard and colleagues, with an educational regla from [email or web address] ([employer]). Thrive Questionnaire Date Thrive assessed: 07/10/24 Within the past 12 months, did the food you bought not last and you didn't have the money to get more?: I choose not to answer this question Within the past 12 months, did you worry whether your food would run out before you got money to buy more?: I choose not to answer this question Do you have trouble paying for medicines?: No Do you have trouble getting transportation to medical appointments?: No Do you have trouble paying your heating and electricity bill?: No Do you have trouble taking care of your child, family member or friend?: No Do you have trouble with day-to-day activities such as bathing, preparing meals, shopping, managing finances, etc.?: No Are you currently unemployed and looking for a job?: No Are you interested in more education?: No Please select the resources that you would like help with: None Currently or been in a relationship where the following occur: No concerns reported THRIVE Score: 0 AUDIT C Alcohol Use Questionnaire (AUDIT-C) 1. How often do you have a drink containing alcohol?: Never 3. How often do you have six or more drinks on one occasion?: Never Total Score: 0 EDY-7 AMB Questionnaire EDY-7 Date EDY - 7 assessed: 07/14/24 Feeling nervous, anxious, or on edge: 0 = Not at all Not being able to stop or control worryin = Not at all Worrying too much about different things: 0 = Not at all Trouble relaxin = Not at all Being so restless that it is hard to sit still: 0 = Not at all Becoming easily annoyed or irritable: 0 = Not at all Feeling afraid as if something awful might happen: 0 = Not at all Total EDY-7 score (0-4 normal; 5-9 mild; 10-14 moderate; 15-21 severe): 0 Source: Developed by Drs. Donn Storm, Génesis Edwards, Petros Woodard and colleagues, with an educational regla from [email or web address] ([employer]). Review of Systems Narrative Review of Systems - Neurological: Reports improvement in dizziness. Denies significant headaches. - Psychiatric: Reports significant anxiety and claustrophobia associated with CT scans. - Respiratory: Reports breathing is fine. Uses an albuterol inhaler approximately once a week. Denies chest pain. - Gastrointestinal: Reports bowel movements are good. - Genitourinary: Denies any problems with urination. Physical exam (Primary Care) Vital Signs: Last Vital Signs Temp 97.3 F 12/26/24 08:45 Pulse 72 12/26/24 08:45 BP 102/62 12/26/24 08:45 Pulse Ox 100 12/26/24 08:45 Oxygen Delivery Method Room Air 12/26/24 08:45 BMI result Body Mass Index 20.4 Tobacco/Smoking Status: Tobacco use Status Tobacco use date assessed 12/26/24 12/26/24 08:50 Patient Tobacco Use Status Never used Tobacco 12/26/24 08:50 Tobacco use type Cigarette 12/26/24 08:50 e-Cigarette/Vaping Use Never Used 12/26/24 08:50 PHQ-9: PHQ-9 Score PHQ-9: Total score 0 12/26/24 09:04 Depression Screening Interpretation: Negative Thrive Assessment: Date of Thrive Assessment Date Thrive assessed 07/10/24 12/26/24 08:50 Currently or been in a relationship where the following occur: No concerns reported Narrative Physical Exam - Respiratory: Lungs are clear on auscultation of the back. - Back: No tenderness to palpation. Const General: alert; No acute distress Eyes Conjunctivae: conjunctivae normal Resp Auscultation: clear to auscultation bilaterally Cardio Rate: regular rate Rhythm: regular rhythm GI Inspection: Yes normal to inspection Extrem General: Yes normal to inspection and No edema Results AMB Hemoglobin A1c AMB Hemoglobin A1c 6.1 % Last Edit by Shelbi Villavicencio CMA on 12/26/24 08:54 Results Reviewed Results Reviewed: Laboratory Last Values Hgb A1c (Clinic) 6.1 % (4.0-6.0) H 12/26/24 08:51 Coding Level of Care Code Est Pt Level 4 (94786) Complex EM visit Add On G2211 Diagnoses Type 2 diabetes mellitus with hyperglycemia E11.65 Hypercholesterolemia E78.00 Gastroesophageal reflux disease without esophagitis K21.9 Esophagitis presence: without esophagitis Hepatic steatosis K76.0 Bilateral malignant neoplasm of breast in female, unspecified estrogen receptor status, unspecified site of breast C50.911; C50.912 Breast location: unspecified site of breast Estrogen receptor status: unspecified Laterality: bilateral Patient sex: female Mild intermittent asthma without complication J45.20 Asthma complication type: uncomplicated Asthma persistence: intermittent Asthma severity: mild Assessment & Plan Assessment & Plan (1) Type 2 diabetes mellitus with hyperglycemia: Code(s): E11.65 - Type 2 diabetes mellitus with hyperglycemia Category: Medical Plan: Decrease the amount of carbohydrate intake, pasta, bread, rice and potatoes are all sugar and that is aside from all the sweet stuff, remember that fruits are good but they are Sweet also. Hemoglobin A1c goal of less than 7.0. Diet controlled (2) Hypercholesterolemia: Code(s): E78.00 - Pure hypercholesterolemia, unspecified Category: Medical Plan: Avoid fried foods, chicken skin, eggs, butter margarine, pastries and meat. Be it pork or beef they have a lot of cholesterol April 2024 last blood work LDL goal of less than 100. (3) GERD (gastroesophageal reflux disease): Code(s): K21.9 - Gastro-esophageal reflux disease without esophagitis Category: Medical Qualifiers: Esophagitis presence: without esophagitis Qualified Code(s): K21.9 - Gastro-esophageal reflux disease without esophagitis Plan: Avoid the foods that causes that usually spicy foods, tomato products, juices, coffee, soda and foods that your sensitive to. After eating do not lie down, allow 3-4 hours before in lie down. And keep the head of bed above 30 degrees to avoid the acid from going up. (4) Hepatic steatosis: Comment: December 2023 Code(s): K76.0 - Fatty (change of) liver, not elsewhere classified Category: Medical Plan: Low-fat diet and exercise (5) Breast cancer: Comment: DCIS breast [address] stein mammogram October 2021 Code(s): C50.919 - Malignant neoplasm of unspecified site of unspecified female breast Category: Medical Qualifiers: Breast location: unspecified site of breast Estrogen receptor status: unspecified Laterality: bilateral Patient sex: female Qualified Code(s): C50.911 - Malignant neoplasm of unspecified site of right female breast; C50.912 - Malignant neoplasm of unspecified site of left female breast Plan: Patient is up-to-date with mammogram (6) Asthma: Code(s): J45.909 - Unspecified asthma, uncomplicated Category: Medical Qualifiers: Asthma complication type: uncomplicated Asthma persistence: intermittent Asthma severity: mild Qualified Code(s): J45.20 - Mild intermittent asthma, uncomplicated Plan: On albuterol inhaler as needed Plan Plan Patient was informed and verbally consented to the use of an ambient scribe for clinic note documentation during this visit. 1. Hypercholesterolemia The patient's last LDL cholesterol level in April was 110 mg/dL, which is above the goal of less than 100 mg/dL. A request for a follow-up blood test has been made, to be completed in the next 2-3 months. Continue to manage with diet and exercise. 2. Type 2 Diabetes Mellitus The patient's hemoglobin A1c is 6.1%, which indicates good control and is below the goal of 7.0%. Continue management with diet control. 3. Anxiety The patient reports significant anxiety and claustrophobia with CT scans, prompting her to decline a scheduled head CT. The scheduled head CT scan will be canceled per the patient's request. The prescription for alprazolam will be removed from her medication list as she reports never using it. 4. Asthma The patient reports using her albuterol inhaler as needed, approximately once a week. Continue current management with albuterol inhaler for as-needed use. 5. Left Renal Mass The patient has a follow-up ultrasound scheduled in February for a known left renal mass. Continue with the plan for follow-up imaging. Discussion Notes I reviewed the patient's recent results with her. I explained that her cholesterol is not at goal, with an LDL of 110 mg/dL, and that we will recheck her labs in a few months. I noted her HbA1c of 6.1% indicates good control of her diabetes. I informed her that her echocardiogram was reassuring and her colonoscopy findings were benign. The patient expressed significant anxiety and claustrophobia regarding a scheduled head CT scan, stating her previous symptoms of dizziness had improved. We discussed the risks and benefits, and I agreed to cancel the scan, advising her to follow up if any symptoms reappear or worsen. I discussed the benefits of the shingles vaccine, which she is considering, and noted she declined the flu shot. I provided anticipatory guidance on avoiding respiratory illnesses given the current season and advised her to continue her healthy lifestyle. I will schedule her next appointment as a complete physical. Patient Instructions - Please get a blood test in the next 2 to 3 months to recheck your cholesterol. - Continue your efforts with healthy eating and staying active. - Your scheduled CT scan of the head has been canceled at your request. Please call us if your dizziness returns or you develop new headaches. - Keep your appointment for the kidney ultrasound in February. - Continue to use your albuterol inhaler as needed for breathing issues. - To protect yourself from getting sick, try to stay away from people who are coughing. - We will schedule your next visit as a complete physical exam. Orders: Orders Comprehensive Met. Panel 2 Months E11.65 - Type 2 diabetes mellitus with hyperglycemia Creatinine Urine 2 Months E11.65 - Type 2 diabetes mellitus with hyperglycemia Microalbumin, Random (w Creat) 2 Months E11.65 - Type 2 diabetes mellitus with hyperglycemia Hemoglobin A1c 2 Months E11.65 - Type 2 diabetes mellitus with hyperglycemia Vitamin D 25-OH Total 2 Months E11.65 - Type 2 diabetes mellitus with hyperglycemia AMB Hemoglobin A1c Today Z13.9 - Encounter for screening, unspecified Complete Blood Count Auto Diff 2 Months E11. - Type 2 diabetes mellitus with hyperglycemia Free T4 (Free Thyroxine) 2 Months E11.65 - Type 2 diabetes mellitus with hyperglycemia Lipid Panel 2 Months E11.65 - Type 2 diabetes mellitus with hyperglycemia, E78.00 - Pure hypercholesterolemia, unspecified Thyroid Stimulating Hormone 2 Months E11. - Type 2 diabetes mellitus with hyperglycemia Vitamin B12 and Folate 2 Months E11. - Type 2 diabetes mellitus with hyperglycemia Medications: Discontinued alprazolam 1 hour before the procedure Discontinued Reason: Patient Completed Course 0.25 mg PO BEDTIME PRN 7 tabs 0RF sleep F41.1 - Generalized anxiety disorder
== END 2024-12-26 09:15 | disposition home or self-care (01) ==
LOC: HO.HMCH 08:41
PROVIDERS: PCP Internal Medicine; Visit Provider Internal Medicine
DX: E11.65 Type 2 diabetes mellitus with hyperglycemia (principal); E78.00 Pure hypercholesterolemia, unspecified; K21.9 Gastro-esophageal reflux disease without esophagitis; K76.0 Fatty (change of) liver, not elsewhere classified; C50.911 Malignant neoplasm of unspecified site of right female breast; C50.912 Malignant neoplasm of unspecified site of left female breast; J45.20 Mild intermittent asthma, uncomplicated; Z13.9 Encounter for screening, unspecified

== ENCOUNTER → 2024-12-26 08:40 | Outpatient (BNVA) | payer MEDICARE, SELFPAY | PROVIDERS: PCP Internal Medicine; Visit Provider Internal Medicine | DX: E11.65 Type 2 diabetes mellitus with hyperglycemia (principal); E78.00 Pure hypercholesterolemia, unspecified; K21.9 Gastro-esophageal reflux disease without esophagitis; K76.0 Fatty (change of) liver, not elsewhere classified; J45.20 Mild intermittent asthma, uncomplicated; Z85.3 Personal history of malignant neoplasm of breast | CPT/HCPCS: 83036; 99212 ==

== ENCOUNTER 2025-01-22 10:57 | Outpatient (AMB) | payer MEDICARE, SELFPAY ==
--- NOTE | 2025-01-22 11:04 | A.OFFVIS_ITS ---
Vital Signs 01/22/25 11:11 Height 5 ft 2 in Weight 112 lb BMI 20.5 BP 102/56 L Blood Pressure Location Rt brachial Position Sitting Pulse 94 Pulse Source Pulse Oximeter Pulse Oximetry (%) 96 Oxygen Delivery Method Room Air Intake Visit Reasons: s/p double Intake Note: Est pt for mgmt of chronic abd pain. Hx of HP infx. CC; C/O occasional reflux depending on diet and when the pt is eating. No additional sx or concerns at this time. 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 Accompanied by: Self / Same As Patient Allergies amoxicillin (AMOXICILLIN) Allergy (Intermediate, Verified 01/22/25 11:07) RASH penicillin V Allergy (Intermediate, Verified 01/22/25 11:07) rash Penicillins (PENICILLINS) Allergy (Intermediate, Verified 01/22/25 11:07) RASH Sulfa (Sulfonamide Antibiotics) (SULFA(SULFONAMIDE ANTIBIOTICS)) Allergy (Intermediate, Verified 01/22/25 11:07) RASH simvastatin (SIMVASTATIN) Allergy (Unknown, Verified 01/22/25 11:07) DIZZINESS sulfamethoxazole (From BACTRIM) Allergy (Unknown, Verified 01/22/25 11:07) RASH trimethoprim (From BACTRIM) Allergy (Unknown, Verified 01/22/25 11:07) RASH HPI HPI s/p double: Details: LAST VISIT: GERD (gastroesophageal reflux disease) Helicobacter pylori (H. pylori) Midepigastric pain Screen for colon cancer Plan What to expect before during and after procedure discussed with patient. Stressed importance of good bowel prep and clear liquid diet day before procedure. I will see patient after the procedure, sooner on as needed basis. Patient is agreeable to this plan and verbalizes understanding of instructions. She was given the opportunity to ask questions and all questions answered. ? Thank you for allowing me to participate in her care New bisacodyl (Dulcolax (bisacodyl)) take 4 tabs at noon the day before your colonoscopy 20 mg (4 x 5 mg) PO ONCE 4 tabs 0RF constipation 1 day Z12.11 polyethylene glycol 3350 (Miralax) As directed by gastroenterology department at [facility] 238 grams PO ONCE 238 grams 0RF Z12.11 UPPER ENDOSCOPY AND COLONOSCOPY: EGD Findings:? * Esophagus:? Normal esophageal mucosa was noted. The Z-line was at 36 cm. * Stomach:? Normal gastric mucosa. Retroflexion was performed in the cardia. Random cold forceps biopsies were taken from the stomach to r/o H Pylori. Sample was also sent to micro for C&S. * Duodenum:? Normal duodenal mucosa. Colonoscopy Procedure:? The patient was then turned for the colonoscopy. A digital rectal exam was performed which was normal.? A distal attachment cap was affixed to the tip of the scope and the colonoscope was then inserted through the anus and advanced through the colon and advanced to the cecum at 75 cm and terminal ileum.? Appendiceal orifice and ileocecal valve were identified. Mucosa was carefully examined under high definition white light as the instrument was slowly withdrawn in a retrograde panoramic fashion. Retroflexion was performed in rectum. The procedure was not difficult. The quality of the prep was BBPS: 2+2+3 = adequate Withdrawal time 13 minutes Limitations: No limitations Findings: Mucosa: Normal colon and terminal ileum mucosa. Protruding lesions: * 1 sessile polyp of size 2 mm noted in ascending colon. Cold forceps polypectomy was performed. The polyp was completely removed and retrieved. * Medium internal hemorrhoids without stigmata of recent bleeding. Impression: 1. Normal esophagus 2. Gastritis (biopsy, micro) 3. Normal duodenum 4. Normal colon and terminal ileum mucosa 5. 1 polyp removed 6. Internal hemorrhoids Recommendations:?? * Pt reports completing cipro + vanoprazan 3 weeks ago but admits to nonadherence. Biopsy were taken for histology as well for micro for culture and sensitivity. * Follow-up path results. * H Pylori treatment contingent on above. * Repeat colonoscopy for CRC screening in 7-10 years. PATHOLOGY RESULTS: Diagnosis A. Stomach, random, biopsy: Gastric antral and body with mild chronic inactive gastritis; negative for Helicobacter pylori, intestinal metaplasia and dysplasia. B. Colon, ascending, polypectomy: Clinically polypoid colonic mucosa noted; negative for a hyperplastic or neoplastic process. TODAY'S VISIT: Patient reports to be feeling well. Denies any GI concerning symptoms. Denies any ill effects from anesthesia or procedure itself. Patient is not taking any medications currently H pylori negative on biopsy. Patient reports to be feeling well. Good appetite. [facility] Medical History Helicobacter pylori (H. 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 Father No problems noted. Sister Lymphoma Sister Dementia Sister Substance abuse Social History Housing: House Alcohol intake: never Patient Tobacco Use Status: Never used Tobacco Tobacco use type: Cigarette e-Cigarette/Vaping Use: Never Used Second Hand Smoke Exposure: No service: No Current occupational status: retired Cognitive needs: No Hearing needs: No Vision needs: Yes Review of Systems Const Denies weight gain and Denies weight loss ENT Reports no additional complaints, Denies dysphagia and Denies odynophagia Card Reports no additional complaints Resp Reports no additional complaints GI Denies abdominal pain, Denies belching, Denies melena, Denies bloating, Denies change in bowel habits, Denies dysphagia, Denies excessive flatus, Denies dyspepsia, Denies heartburn, Denies diarrhea, Denies loose stools, Denies nausea, Denies odynophagia and Denies vomiting Musc Reports no additional complaints Neuro Reports no additional complaints Psych Reports no additional complaints Endo Reports no additional complaints Physical Exam Vital Signs: Last Vital Signs Pulse 94 01/22/25 11:11 BP 102/56 L 01/22/25 11:11 Pulse Ox 96 01/22/25 11:11 Oxygen Delivery Method Room Air 01/22/25 11:11 BMI result Body Mass Index 20.5 Const General: healthy appearing, no acute distress and well developed Nutritional Appearance: well nourished Orientation/consciousness: patient oriented x3 Resp Effort & Inspection: normal respiratory effort, able to speak in complete sentences, no tracheal deviation and symmetric chest movement Auscultation: clear to auscultation bilaterally Cardio Rate: regular rate GI Inspection: Yes normal to inspection and No distended Palpation (GI): Soft to palpation, not firm, nontender and No hepatosplenomegaly present Auscultation: normal bowel sounds General: Yes no CVA tenderness Back/Spine/Pelvis Back: no CVA tenderness Skin General skin exam: elasticity normal, turgor normal and dry skin Neuro General: patient oriented x3 Psych Appearance: grossly normal Mental Status: mental status grossly normal Assessment & Plan Assessment & Plan (1) GERD (gastroesophageal reflux disease): Code(s): K21.9 - Gastro-esophageal reflux disease without esophagitis Category: Medical Qualifiers: Esophagitis presence: without esophagitis Qualified Code(s): K21.9 - Gastro-esophageal reflux disease without esophagitis (2) Helicobacter pylori (H. pylori): Code(s): A04.8 - Other specified bacterial intestinal infections Category: Medical Plan Patient denies any GI concerning symptoms. H pylori negative on biopsy. She will follow-up in our office as needed. Patient was encouraged to call us if she will have any GI concerning symptoms. Patient is agreeable to this plan and verbalizes understanding of instructions. She was given the opportunity to ask questions and all questions answered. Thank you for allowing me to participate in her care Coding Level of Care Code Est Pt Level 3 (71575) Diagnoses Gastroesophageal reflux disease without esophagitis K21.9 Esophagitis presence: without esophagitis Helicobacter pylori (H. pylori) A04.8 Time Spent (min) 25 Comment 50 minutes spent with patient and additional 10 minutes spent reviewing her records
[2025-01-22 11:11] VITALS: BP 102/56; PULSE 94; O2SAT 96; BMI 20.5
== END 2025-01-22 11:35 | disposition home or self-care (01) ==
LOC: HO.HGI 10:58
PROVIDERS: PCP Internal Medicine; Visit Provider Nurse Practitioner Family
DX: K21.9 Gastro-esophageal reflux disease without esophagitis (principal); A04.8 Other specified bacterial intestinal infections
CPT/HCPCS: 99213

== ENCOUNTER → 2025-01-22 10:57 | Outpatient (BNVA) | payer MEDICARE, SELFPAY | PROVIDERS: PCP Internal Medicine; Visit Provider Nurse Practitioner Family | DX: K21.9 Gastro-esophageal reflux disease without esophagitis (principal); Z98.890 Other specified postprocedural states; Z79.899 Other long term (current) drug therapy | CPT/HCPCS: 99212 ==